=== PATIENT | female | born 1945 | race Caucasian/White ===

== ENCOUNTER 2021-01-27 08:18 | Outpatient (REF) | payer MEDICARE, MEDICAID, SELFPAY ==
--- NOTE | 2021-01-27 09:22 | MHC.AU.HFA ---
Hearing Instrument Fitting- Adult- Binaural Date of Visit: 01/27/21 Hearing Instruments Dispensed: Right Ear: Supervisor Wet Room: Signia Model: Silk 5X Serial Number: [id number] Repair Warranty: 01/10/2024 Loss and Damage Warranty: 01/10/2024 Battery Size: 10 Type of Dome: Small Vented Connexx Click Sleeve Left Ear: Supervisor Wet Room: Signia Model: Silk 5X Serial Number: [id number] Repair Warranty: 01/10/2024 Loss and Damage Warranty: 01/10/2024 Battery Size: 10 Type of Dome: Small Vented Connexx Click Sleeve Summary of Fitting: Hearing instruments appear to fit well with the small vented Connexx Click Sleeves. Critical gain (feedback restaurant manager) run. Verifit not perfomed, as patient does not tolerate the measurements. In-Situ audiogram was performed. Patient was pleased with the sound of the instruments. She initially heard a slight echo when I spoke. Gain for speech sound was lowered by 1 step, and patient felt the echo had subsided. Hearing aid care and use were discussed and practiced. Patient inquired if we could watermelon harvesting supervisor an Otoclip as we had done with her previous RICs. Discussed that this model does not have anywhere for an Otoclip to attach to or loop around. The previous RICs were falling out because the supervisor steel division wire was frequently getting caught in the patient's hair. With this model, there will be significantly less interference from her hair or the face mask, as the hearing aid sits entirely inside the ear canal. Patient was able to put the hearing aid in and change the batteries independently. Recommendations: Patient would like to call if follow-up is needed rather than schedule a follow-up today. Diagnosis Code(s): Primary Diagnosis: H90.3 Bilateral Sensorineural Hearing Loss Signature: Provider: Chele Vieira, CCC-A
== END 2021-01-27 08:19 | disposition home or self-care (01) ==
LOC: HO.HAP 08:18
PROVIDERS: Visit Provider Internal Medicine
DX: Z46.1 Encounter for fitting and adjustment of hearing aid (principal); H90.3 Sensorineural hearing loss, bilateral
CPT/HCPCS: V5011; V5160; V5260; V5266

== ENCOUNTER 2021-09-02 08:57 | Outpatient (REF) | payer MEDICARE, MEDICAID, SELFPAY ==
[2021-09-02 11:12] LABS: MANUAL DIFF FLAG NO
[2021-09-02 11:22] LABS: Appearance Urine CLOUDY; Color Urine YELLOW; Glucose Urine UA NEG (NEG); Leukocyte Esterase Urine NEG (NEG); Nitrite Urine NEG (NEG); PH 5.5 (5.0-8.0); Specific Gravity - Urine 1.025 (1.005-1.025); Urine Blood 1+ (NEG); Urine Ketones NEG (NEG); Urine Protein NEG (NEG-TRACE)
[2021-09-02 11:28] LABS: Basophils Absolute Auto 0.1 X10*3/uL (0.0-0.2); Basophils Percent Auto 0.9 % (0-2); Eosinophils Absolute Auto 0.2 X10*3/uL (0.0-0.4); Eosinophils Percent Auto 2.8 % (0-4); Hematocrit 41.1 % (37.0-47.0); Hemoglobin 13.1 g/dl (12.0-16.0); Imm Gran Abs Auto 0.02 X10*3/uL (0.00-0.03); Imm Gran Pct Auto 0.3 % (0.0-0.4); Lymphocytes Absolute Auto 1.8 X10*3/uL (1.2-4.9); Lymphocytes Percent Auto 28.6 % (20-40); Mean Corpuscular HGB Conc 31.9 g/dl (31.0-35.0); Mean Corpuscular Hemoglobin 27.4 pg (27.0-33.0); Monocytes Absolute Auto 0.4 X10*3/uL (0.1-1.2); Monocytes Percent Auto 6.5 % (2-11); Neutrophils Absolute Auto 3.8 x10*3/uL (2.0-8.3); Neutrophils Percent Auto 60.9 % (45-73); Platelet Count 256 X10*3/uL (160-400); Red Blood Count 4.78 X10*6/uL (4.20-5.50); Red Cell Distribution Width 14.3 % (11.0-16.0); White Blood Count 6.3 X10*3/uL (4.8-10.8)
[2021-09-02 11:35] LABS: Alanine Aminotransferase 26 U/L (0-31); Albumin Level 4.2 g/dL (3.5-5.0); Alkaline Phosphatase 144 U/L (39-117); Anion Gap 14 (12-20); Aspartate Amino Transferase 25 U/L (5-31); Bilirubin Total 0.5 mg/dL (0.0-1.0); Blood Urea Nitrogen 30 mg/dL (9-16); Calcium 9.9 mg/dL (8.4-10.2); Carbon Dioxide 27 mmol/L (22-29); Chloride 105 mmol/L (96-108); Cholesterol 178 mg/dL; Estimated Glomerular Filt Rate > 60; Glucose Fasting 88 mg/dL (60-99); HDL Cholesterol 68 mg/dL; LDL Cholesterol Calculated 100 mg/dl; Potassium 4.6 mmol/L (3.3-5.1); Sodium 141 mmol/L (135-145); Triglycerides 50 mg/dL
[2021-09-02 11:38] LABS: Amorphous Sediment Urine 4+ /LPF; Squamous Epithelial Cell Urine 1+ /LPF; WBC Urine 0 /HPF (0-4)
[2021-09-02 11:59] LABS: Thyroid Stimulating Hormone 1.73 uIU/mL (0.32-4.0)
== END 2021-09-02 08:58 | disposition home or self-care (01) ==
LOC: HO.HMGCLDS 08:57
PROVIDERS: Visit Provider Internal Medicine
DX: Z00.00 Encounter for general adult medical examination without abnormal findings (principal); E78.5 Hyperlipidemia, unspecified
CPT/HCPCS: 36415; 80053; 80061; 81001; 84443; 85025

== ENCOUNTER 2021-09-04 08:16 | Outpatient (REF) | payer MEDICARE, MEDICAID, SELFPAY ==
[2021-09-04 11:19] LABS: Appearance Urine CLEAR; Color Urine YELLOW; Glucose Urine UA NEG (NEG); Leukocyte Esterase Urine NEG (NEG); Nitrite Urine NEG (NEG); Specific Gravity - Urine 1.015 (1.005-1.025); Urine Blood NEG (NEG); Urine Ketones NEG (NEG); Urine Protein NEG (NEG-TRACE)
== END 2021-09-04 08:17 | disposition home or self-care (01) ==
LOC: HO.HMGCLDS 08:16
PROVIDERS: PCP Internal Medicine; Visit Provider Internal Medicine
DX: N39.0 Urinary tract infection, site not specified (principal)
CPT/HCPCS: 81003

== ENCOUNTER 2021-11-04 12:29 | Outpatient (REF) | payer MEDICARE, MEDICAID, SELFPAY | END 2021-11-04 12:30 | disposition home or self-care (01) | LOC: HO.HMGCLDS 12:29 | PROVIDERS: PCP Internal Medicine; Visit Provider Internal Medicine | DX: Z13.89 Encounter for screening for other disorder (principal) ==

== ENCOUNTER 2021-11-16 10:04 | Outpatient (REF) | payer MEDICARE, MEDICAID, SELFPAY ==
--- NOTE | 2021-11-16 14:02 | MHC.AU.HFU ---
Hearing Instrument Follow-Up- Binaural Date of Visit: 11/16/21 Right Ear: Microfilmer: Signia Model: Silk 5X Serial Number: [id number] Repair Warranty: 01/10/2024 Loss and Damage Warranty: 01/10/2024 Battery Size: 10 Type of Dome: Small Vented Connexx Click Sleeve Dispensed By: [facility] Date of Fittin01/27/2021 Left Ear: Microfilmer: Signia Model: Silk 5X Serial Number: [id number] Repair Warranty: 01/10/2024 Loss and Damage Warranty: 01/10/2024 Battery Size: 10 Type of Dome: Small Vented Connexx Click Sleeve Dispensed By: [facility] Date of Fittin01/27/2021 Follow-Up Summary: Hearing Aid Problem - Patient brings in the left aid with the battery door broken off and battery stuck in aid. Sending out for repair under warranty Patient also reports she has not been hearing well with the aids since fit. She is not able to understand speech clearly and asking for frequent repetition. Recommendations: When repair received, schedule 1/2 hour appointment with Babak Howard for further adjustments of the aids. Diagnosis Code(s): Primary Diagnosis: H90.3 Bilateral Sensorineural Hearing Loss Signature:Provider: Elvis Qureshi, CCC-A
== END 2021-11-16 10:05 | disposition home or self-care (01) ==
LOC: HO.HAP 10:04
PROVIDERS: Visit Provider Internal Medicine
DX: Z46.1 Encounter for fitting and adjustment of hearing aid (principal); H90.3 Sensorineural hearing loss, bilateral
CPT/HCPCS: V5266

== ENCOUNTER 2021-12-15 10:21 | Outpatient (REF) | payer MEDICARE, MEDICAID, SELFPAY | END 2021-12-15 10:22 | disposition home or self-care (01) | LOC: HO.HAP 10:21 | PROVIDERS: Visit Provider Internal Medicine | DX: Z13.89 Encounter for screening for other disorder (principal) ==

== ENCOUNTER → 2022-01-10 13:59 | Outpatient (BNVA) | payer MEDICARE, MEDICAID, SELFPAY | PROVIDERS: PCP Internal Medicine; Visit Provider Urology | DX: N32.81 Overactive bladder (principal); R35.0 Frequency of micturition; Q63.1 Lobulated, fused and horseshoe kidney | CPT/HCPCS: 51798; 99212; Q3014 ==

== ENCOUNTER 2022-01-20 14:39 | Outpatient (REF) | payer MEDICARE, MEDICAID, SELFPAY ==
--- NOTE | 2022-01-21 08:16 | MHC.AU.HFU ---
Hearing Instrument Follow-Up- Binaural Date of Visit: 01/20/22 Right Ear: C++ Quant Developer: Sign[employer] 5X #[id number] Repair Warranty: 01/10/2024 Loss and Damage Warranty: 01/10/2024 Battery Size: 10 Type of Dome: X-Small Vented Connexx Click Sleeve Dispensed By: [facility] Date of Fittin01/27/2021 Left Ear: C++ Quant Developer: Crowd[employer] 5X #[id number] Repair Warranty: 01/10/2024 Loss and Damage Warranty: 01/10/2024 Battery Size: 10 Type of Dome: X-Small Vented Connexx Click Sleeve Dispensed By: [facility] Date of Fittin01/27/2021 Follow-Up Summary: Patient reports that the battery is stuck inside the right hearing aid. She suspects she accidentally put the battery in backwards. The battery was able to be extracted with tweezers. A piece of the battery door is broken; therefore, the battery stays inside the hearing aid every time the battery door is opened. The hearing aid is still turning on and amplifying. Patient will be leaving for vacation shortly, and did not want to be without the hearing aid on vacation. Discussed that, temporarily, she could use tweezers to remove the battery as needed, but strongly recommended that she drop the hearing aid off for repair when she returns from vacation. Patient also requested a smaller sleeve. Switched both instruments to X-Small. Patient was pleased with the fit of the instruments. She also felt that she still has significant difficulty hearing in groups or in noise. In the software, increased speech and noise management to maximum. At patient request, lowered overall gain by 2 steps, as she felt it was too harsh. Recommendations: Hearing instrument follow-up or maintenance as needed. Patient will drop the right hearing aid off for repair when she returns from vacation. Diagnosis Code(s): Primary Diagnosis: H90.3 Bilateral Sensorineural Hearing Loss Signature: Provider: Franc Vieira, [facility]
== END 2022-01-20 14:40 | disposition home or self-care (01) ==
LOC: HO.HAP 14:39
PROVIDERS: Visit Provider Internal Medicine
DX: Z13.89 Encounter for screening for other disorder (principal)
CPT/HCPCS: 92621

== ENCOUNTER 2022-02-16 14:23 | Outpatient (REF) | payer MEDICARE, MEDICAID, SELFPAY ==
--- NOTE | 2022-02-17 07:56 | MHC.AU.HFU ---
Hearing Instrument Follow-Up- Binaural Date of Visit: 02/16/22 Right Ear: Abhishek Garrett 5X #[id number] Repair Warranty: 01/10/2024 Loss and Damage Warranty: 01/10/2024 Battery Size: 10 Type of Dome: X-Small Connexx Click Sleeve Type of Wax Guard: Signia Dispensed By: [facility] Date of Fittin01/27/2021 Left Ear: Abhishek Garrett 5X #[id number] Repair Warranty: 01/10/2024 Loss and Damage Warranty: 01/10/2024 Battery Size: 10 Type of Dome: X-small Vented Connexx Click Sleeve Type of Wax Guard: Signia Dispensed By: [facility] Date of Fittin01/27/2021 Follow-Up Summary: Patient was previously seen on 01/20/2022 to address her right hearing aid. The battery door was broken, causing the battery to stay inside the hearing aid when the door was opened. The battery could be taken out with tweezers. The hearing aid was still working and she was due to go on a trip; therefore, she did not want to send it out for repair until she got back. Today, she dropped the right side off to send out. It was sent to [facility] for repair under warranty. Recommendations: Patient will be contacted when materials have arrived. Diagnosis Code(s): Primary Diagnosis: H90.3 Bilateral Sensorineural Hearing Loss Signature: Provider: Franc Vieira, [facility]
== END 2022-02-16 14:24 | disposition home or self-care (01) ==
LOC: HO.HAP 14:23
PROVIDERS: Visit Provider Internal Medicine
DX: Z13.89 Encounter for screening for other disorder (principal)

== ENCOUNTER 2022-03-10 14:19 | Outpatient (REF) | payer MEDICARE, MEDICAID, SELFPAY | END 2022-03-10 14:20 | disposition home or self-care (01) | LOC: HO.HAP 14:19 | PROVIDERS: Visit Provider Internal Medicine | DX: Z13.89 Encounter for screening for other disorder (principal) ==

== ENCOUNTER 2022-03-21 11:57 | Outpatient (REF) | payer MEDICARE, MEDICAID, SELFPAY | END 2022-03-21 11:58 | disposition home or self-care (01) | LOC: HO.HAP 11:57 | PROVIDERS: Visit Provider Internal Medicine | DX: Z13.89 Encounter for screening for other disorder (principal) ==

== ENCOUNTER 2022-03-31 13:56 | Outpatient (REF) | payer MEDICARE, MEDICAID, SELFPAY | END 2022-03-31 13:57 | disposition home or self-care (01) | LOC: HO.HAP 13:56 | PROVIDERS: Visit Provider Internal Medicine | DX: Z13.89 Encounter for screening for other disorder (principal) ==

== ENCOUNTER → 2022-06-10 13:54 | Outpatient (BNVA) | payer MEDICARE, MEDICAID, SELFPAY | PROVIDERS: PCP Internal Medicine; Visit Provider Urology | DX: N32.81 Overactive bladder (principal) | CPT/HCPCS: Q3014 ==

== ENCOUNTER 2022-06-28 16:09 | Outpatient (REF) | payer MEDICAID, SELFPAY | END 2022-06-28 16:10 | disposition home or self-care (01) | LOC: HO.HAP 16:09 | PROVIDERS: Visit Provider Internal Medicine | DX: Z46.1 Encounter for fitting and adjustment of hearing aid (principal); H90.3 Sensorineural hearing loss, bilateral | CPT/HCPCS: V5266 ==

== ENCOUNTER 2022-06-29 15:47 | Outpatient (REF) | payer SELFPAY | END 2022-06-29 15:48 | disposition home or self-care (01) | LOC: HO.HAP 15:47 | PROVIDERS: Visit Provider Internal Medicine | DX: Z46.1 Encounter for fitting and adjustment of hearing aid (principal); H90.3 Sensorineural hearing loss, bilateral | CPT/HCPCS: V5267 ==

== ENCOUNTER 2022-07-06 16:34 | Outpatient (REF) | payer SELFPAY ==
--- NOTE | 2022-07-07 11:55 | MHC.AU.HA3 ---
Hearing Instrument Follow-Up- Binaural Date of Visit: 07/06/22 Right Ear: Tyrese, Model, Color, Serial Number: Abhishek Garrett 5X #[id number] Nuclear Fuel Enrichment Technician Repair Warranty: 01/10/2024 Nuclear Fuel Enrichment Technician Loss and Damage Warranty: 01/10/2024 Battery Size: 10 Earmold/Dome/CShell/SlimTip:Signia Closed XS Connexx Click Sleeve (Part #: [id number]) Dispensed By: [facility] Date of Fittin01/27/2021 Left Ear: Tyrese, Model, Color, Serial Number: Abhishek Garrett 5X #[id number] Nuclear Fuel Enrichment Technician Repair Warranty: 01/10/2024 Nuclear Fuel Enrichment Technician Loss and Damage Warranty: 01/10/2024 Battery Size: 10 Earmold/Dome/CShell/SlimTip: Signia Closed XS Connexx Click Sleeve (Part #: [id number]) Dispensed By: [facility] Date of Fittin01/27/2021 Follow-Up Summary: Zuleima dropped off right hearing aid reporting it was broken. Upon inspection, the dome would not stay connected. After some troubleshooting, realized it was the wrong dome. Replaced with the proper dome and confirmed secure fit. Dome clicks onto end of hearing aid. Connexx Click Sleeve domes have small white ring inside to click onto hearing aid. Provided two additional domes for Zuleima to change her left one as well. Recommendations: Hearing instrument maintenance in 6 months, or sooner if needed. Please contact our clinic with any questions or concerns. Diagnosis Code(s): Primary Diagnosis: H90.3 Bilateral Sensorineural Hearing Loss Signature: Provider: Franc Berkowitz, [facility]
== END 2022-07-06 16:35 | disposition home or self-care (01) ==
LOC: HO.HAP 16:34
PROVIDERS: Visit Provider Internal Medicine
DX: Z13.89 Encounter for screening for other disorder (principal)

== ENCOUNTER 2022-07-11 15:41 | Outpatient (REF) | payer SELFPAY | END 2022-07-11 15:42 | disposition home or self-care (01) | LOC: HO.HAP 15:41 | PROVIDERS: Visit Provider Internal Medicine | DX: Z13.89 Encounter for screening for other disorder (principal) ==

== ENCOUNTER → 2022-09-26 13:35 | Outpatient (BNVA) | payer MEDICARE, MEDICAID, SELFPAY | PROVIDERS: PCP Internal Medicine; Visit Provider Dietitian, Registered | DX: R63.8 Other symptoms and signs concerning food and fluid intake (principal) | CPT/HCPCS: 97802 ==

== ENCOUNTER 2023-01-31 14:10 | Outpatient (AMB) | payer MEDICARE, MEDICAID, SELFPAY ==
[2023-01-31 14:20] VITALS: BP 164/76; PULSE 84; O2SAT 98; BMI 18.9
--- NOTE | 2023-01-31 14:20 | MHC.PC.OV ---
Vital Signs 01/31/23 14:20 Height 5 ft Weight 97 lb BMI 18.9 BP 164/76 H Blood Pressure Location Lt brachial Position Sitting Pulse 84 Pulse Source Pulse Oximeter Pulse Oximetry (%) 98 Oxygen Delivery Method Room Air Intake Visit Reasons: 1mth f/u Allergies bacitracin [BACITRACIN] Allergy (Unknown, Verified 01/31/23 14:20) UNKNOWN latex [LATEX] Allergy (Unknown, Verified 01/31/23 14:20) ITCHING penicillin V Allergy (Unknown, Verified 01/31/23 14:20) Unknown Penicillins [PENICILLINS] Allergy (Unknown, Verified 01/31/23 14:20) UNKNOWN Dye GROUP HOME Red 2 (Amaranth) Allergy (Unknown, Uncoded 01/31/23 14:20) Unknown Dye GROUP HOME Red 3 (Erythrosine) Allergy (Unknown, Uncoded 01/31/23 14:20) Unknown Dye GROUP HOME Red 40 (Allura Red) Allergy (Unknown, Uncoded 01/31/23 14:20) Unknown Dye GROUP HOME Red 40 ([place] Red) Allergy (Unknown, Uncoded 01/31/23 14:20) Unknown Latex Allergy (Unknown, Uncoded 01/31/23 14:20) Unknown Latex Gloves Allergy (Unknown, Uncoded 01/31/23 14:20) itching Tobacco use date assessed: 05/12/22 Fall risk assessment: No Falls in past year Last assessed Fall Risk: 01/31/23 Dental Screening Dental Screen Date: 01/31/23 Did you have a dental visit in the last 12 months?: No Did you have a dental problem in the last 6 months where you did not have access to dental care?: Yes Was dental information given to patient?: Patient has dentist HPI 1mth f/u HPI Details pruritic rash under left arm for a week PFS Medical History Cellulitis Surgical History No pertinent past surgical history Family History Mother No problems noted. Father No problems noted. Social History Housing: Apartment Alcohol intake: never Patient Tobacco Use Status: Never used Tobacco e-Cigarette/Vaping Use: Never Used Second Hand Smoke Exposure: No service: No Current occupational status: retired Cognitive needs: No Hearing needs: No Vision needs: Yes (glasses) Questionnaire PHQ-9 Over the last 2 weeks, how often have you been bothered by any of the following problems? 1. Little interest or pleasure in doing things: not at all 2. Feeling down, depressed, or hopeless: not at all 3. Trouble falling or staying asleep, or sleeping too much: not at all 4. Feeling tired or having little energy: not at all 5. Poor appetite or overeating: not at all 6. Feeling bad about yourself - or that you are a failure or have let yourself or your family down: not at all 7. Trouble concentrating on things, such as reading the newspaper or watching television: not at all 8. Moving or speaking so slowly that other people could have noticed. Or the opposite - being so fidgety or restless that you have been moving around a lot more than usual: not at all 9. Thoughts that you would be better off or of hurting yourself in some way: not at all Total score: 0 Depression Screening Interpretation: Negative Depression Screening Done: Yes 55052 - PHQ-9 Billing: Yes Source: Developed by Drs. Mark Haney, Errol Lockwood and colleagues, with an educational laura from [employer]. Thrive Questionnaire Date Thrive assessed: 05/12/22 AUDIT C Alcohol Use Questionnaire (AUDIT-C) 1. How often do you have a drink containing alcohol?: Never 3. How often do you have six or more drinks on one occasion?: Never Total Score: 0 Score Reviewed/Action Taken: Yes DANA-7 AMB Questionnaire DANA-7 Date DANA - 7 assessed: 05/12/22 Source: Developed by Drs. Mark Haney, Errol Lockwood and colleagues, with an educational laura from [employer]. Review of Systems Const Denies chills, Denies headache(s) and Denies weight loss ENT Denies headache(s) Card Denies chest pain, Denies syncope, Denies irregular heart rhythm and Denies dyspnea Resp Denies chest congestion, Denies cough and Denies dyspnea GI Denies abdominal pain, Denies change in stool character, Denies nausea and Denies vomiting Musc Denies deformity and Denies joint swelling Neuro Denies syncope and Denies headache(s) Physical exam (Primary Care) Vital Signs: Last Vital Signs Pulse 84 01/31/23 14:20 BP 164/76 H 01/31/23 14:20 Pulse Ox 98 01/31/23 14:20 Oxygen Delivery Method Room Air 01/31/23 14:20 BMI result Body Mass Index 18.9 Tobacco/Smoking Status: Tobacco use Status Tobacco use date assessed 05/12/22 01/31/23 14:21 Patient Tobacco Use Status Never used Tobacco 01/31/23 14:21 e-Cigarette/Vaping Use Never Used 01/31/23 14:21 PHQ-9: PHQ-9 Score PHQ-9: Total score 0 01/31/23 14:27 Depression Screening Interpretation: Negative Thrive Assessment: Date of Thrive Assessment Date Thrive assessed 05/12/22 01/31/23 14:21 Const General: cooperative, comfortable and no acute distress HENMT Head: Yes normal to inspection Eyes General: appearance normal, both eyes and all related structures Neck Neck: Yes normal visual inspection Skin Other: excoriated rash left axilla Assessment and Plan Assessment & Plan (1) Rash: Code(s): R21 - Rash and other nonspecific skin eruption Plan: take rx Medications: New azithromycin take 500 mg today (day 1), then 250 mg for 4 days (days 2-5) PO 6 tabs 0RF Coding Level of Care Code Est Pt Level 3 (97094) Diagnoses Rash R21
== END 2023-01-31 14:43 | disposition home or self-care (01) ==
PROVIDERS: PCP Internal Medicine; Visit Provider Internal Medicine
DX: R21 Rash and other nonspecific skin eruption (principal)
CPT/HCPCS: 99213

== ENCOUNTER 2023-02-06 13:13 | Outpatient (AMB) | payer MEDICARE, MEDICAID, SELFPAY ==
--- NOTE | 2023-02-06 13:13 | A.OFFVIS_ITS ---
Intake Intake Visit Reasons: Urinary incontinence Intake Note: Patient is present for Telephone Follow Up Urology Med: none Blood thinners; none Taxi Servicer Required: No Accompanied by: Self / Same As Patient Allergies bacitracin [BACITRACIN] Allergy (Unknown, Verified 02/06/23 13:50) UNKNOWN latex [LATEX] Allergy (Unknown, Verified 02/06/23 13:50) ITCHING penicillin V Allergy (Unknown, Verified 02/06/23 13:50) Unknown Penicillins [PENICILLINS] Allergy (Unknown, Verified 02/06/23 13:50) UNKNOWN Dye PRISON Red 2 (Amaranth) Allergy (Unknown, Uncoded 02/06/23 13:50) Unknown Dye PRISON Red 3 (Erythrosine) Allergy (Unknown, Uncoded 02/06/23 13:50) Unknown Dye PRISON Red 40 (Allura Red) Allergy (Unknown, Uncoded 02/06/23 13:50) Unknown Dye PRISON Red 40 ([place] Red) Allergy (Unknown, Uncoded 02/06/23 13:50) Unknown Latex Allergy (Unknown, Uncoded 02/06/23 13:50) Unknown Latex Gloves Allergy (Unknown, Uncoded 02/06/23 13:50) itching Medication List - Last Reconciled 02/06/23 by FELIPA [place] azithromycin take 500 mg today (day 1), then 250 mg for 4 days (days 2-5) PO HPI HPI Comments History of Present Illness Details Zuleima is a very pleasant 77-year-old female patient of Dr. Berkowtiz. She has a PMH of cellulits, hearing loss, and weight disorder. She is being follow- up on today via telehealth for her ongoing lower urinary tract symptoms. In discussion with the patient today she reports to be doing and feeling well. She reports noting urinary frequency. She reports having followed up with Dr. Chen and Dr. Brandt in the past however continues with urinary frequency. 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 Discussed obtaining retroperitoneal ultrasound for further assessment evaluation. When asked patient denies hematuria, dysuria, foul-smelling urine, changes to urinary stream, flank pain, fever, and or chills. She endorses to urinary urgency, urinary frequency, nocturia, and episodes of incontinence if not near a bathroom. Discussed at length potential causes for lower urinary tract symptoms patient is experiencing. Discussed obtaining retroperitoneal ultrasound for further assessment evaluation and in office follow-up for further assessment evaluation of urinalysis and postvoid residual. Discussed, educated, and stressed the importance of drinking plenty of water daily. She otherwise denies any other issues or concerns at this time. [facility] Medical History Cellulitis Surgical History No pertinent past surgical history Family History Mother No problems noted. Father No problems noted. Social History Housing: Apartment Alcohol intake: never Patient Tobacco Use Status: Never used Tobacco e-Cigarette/Vaping Use: Never Used Second Hand Smoke Exposure: No service: No Current occupational status: retired Cognitive needs: No Hearing needs: No Vision needs: Yes (glasses) Review of Systems Const Reports as per HPI Eyes Reports no additional complaints ENT Reports as per HPI Card Reports no additional complaints Resp Reports no additional complaints GI Reports as per HPI Reports as per HPI Musc Reports no additional complaints Skin/Breast Reports as per HPI Neuro Reports no additional complaints Psych Reports as per HPI Endo Reports no additional complaints Physical Exam Const General: cooperative Resp Effort & Inspection: able to speak in complete sentences Psych Speech and movement: Clear speech present Attitude: cooperative Thought process: Normal thought process present Insight: Fair insight present (Psych) Judgement: Fair judgement present (Psych) Assessment & Plan Assessment & Plan (1) Urinary frequency: Code(s): R35.0 - Frequency of micturition Plan Discussed at length potential causes for lower urinary tract symptoms patient is experiencing. Discussed obtaining retroperitoneal ultrasound for further assessment evaluation. Discussed follow-up to be in office for further assessment of urinalysis as well as postvoid residual. Discussed at length bladder triggers/irritants. Discussed, educated, encouraged on the importance of drinking plenty of water daily. Follow-up in office in 3 months with imaging to be completed prior; or sooner with any issues, concerns, and or questions. Orders: Orders US retroperitoneal comp Today R35.0 - Frequency of micturition Patient Instructions: The patient had an opportunity to ask questions regarding the treatment plan. All questions were answered. Physical exam, labs, and imaging were discussed and reviewed in detail. As well as risks, benefits, and discussion of treatment choices. No major barriers to understanding were identified. The patient expressed understanding and agreement with the above treatment plan. The patient was made aware they should contact our office by phone for worsening of their current condition, the appearance of new symptoms, or with any questions or concerns. Compliance is encouraged with any medications and follow up testing that is ordered. It is a privilege to be allowed the opportunity to participate in? your urological care.? Again, if you have any questions or concerns If you have any questions or concerns please do not hesitate to contact me. The office is [phone]. This note is constructed using voice recognition software. While every effort has been made to ensure accuracy director of sales marketing errors may have been included. Yours sincerely, [facility] Tele[facility] Telehealth Location of provider rendering services: practice address Location of patient: address on file Patient Identification confirmed using: Name, : Yes Telehealth method: voice only Patient verbally consented to treatment: Yes Patient verbally consented to billing insurance company: Yes Patient informed of any privacy concerns related to visit: Yes Minutes spent on Phone/Video with Pt.: 20 Coding Level of Care Code Tele New Pt Level 2 (23922) Diagnoses Urinary frequency R35.0
== END 2023-02-06 14:02 | disposition home or self-care (01) ==
LOC: HO.HUSH 13:13
PROVIDERS: PCP Internal Medicine; Visit Provider Nurse Practitioner Family
DX: R35.0 Frequency of micturition (principal)
CPT/HCPCS: 99442

== ENCOUNTER → 2023-02-06 13:13 | Outpatient (BNVA) | payer MEDICARE, MEDICAID, SELFPAY | PROVIDERS: PCP Internal Medicine; Visit Provider Nurse Practitioner Family ==

== ENCOUNTER 2023-05-10 08:34 | Outpatient (AMB) | payer MEDICARE, MEDICAID, SELFPAY ==
--- NOTE | 2023-05-10 08:31 | MHC.PC.OV ---
Vital Signs 05/10/23 08:31 Height 5 ft Intake Visit Reasons: discuss referral, Allergies bacitracin [BACITRACIN] Allergy (Unknown, Verified 05/10/23 08:32) UNKNOWN latex [LATEX] Allergy (Unknown, Verified 05/10/23 08:32) ITCHING penicillin V Allergy (Unknown, Verified 05/10/23 08:32) Unknown Penicillins [PENICILLINS] Allergy (Unknown, Verified 05/10/23 08:32) UNKNOWN Dye PRISON Red 2 (Amaranth) Allergy (Unknown, Uncoded 05/10/23 08:32) Unknown Dye PRISON Red 3 (Erythrosine) Allergy (Unknown, Uncoded 05/10/23 08:32) Unknown Dye PRISON Red 40 (Allura Red) Allergy (Unknown, Uncoded 05/10/23 08:32) Unknown Dye PRISON Red 40 ([place] Red) Allergy (Unknown, Uncoded 05/10/23 08:32) Unknown Latex Allergy (Unknown, Uncoded 05/10/23 08:32) Unknown Latex Gloves Allergy (Unknown, Uncoded 05/10/23 08:32) itching Tobacco use date assessed: 05/08/23 HPI discuss referral, HPI Details wants PT referral for leg weakness; homeless and living in her car [facility] Medical History Cellulitis Surgical History No pertinent past surgical history Family History Mother No problems noted. Father No problems noted. Social History Housing: Apartment Alcohol intake: never Patient Tobacco Use Status: Never used Tobacco e-Cigarette/Vaping Use: Never Used Second Hand Smoke Exposure: No service: No Current occupational status: retired Cognitive needs: No Hearing needs: No Vision needs: Yes (glasses) Questionnaire Thrive Questionnaire Date Thrive assessed: 05/08/23 DANA-7 AMB Questionnaire DANA-7 Date DANA - 7 assessed: 05/08/23 Source: Developed by Drs. Mark L. MedinaYasmine proctor, Errol Horne and colleagues, with an educational laura from [employer]. Review of Systems Const Denies chills, Denies headache(s) and Denies weight loss ENT Denies headache(s) Card Denies chest pain, Denies syncope, Denies irregular heart rhythm and Denies dyspnea Resp Denies chest congestion, Denies cough and Denies dyspnea GI Denies abdominal pain, Denies change in stool character, Denies nausea and Denies vomiting Musc Denies deformity and Denies joint swelling Neuro Denies syncope and Denies headache(s) Physical exam (Primary Care) Tobacco/Smoking Status: Tobacco use Status Tobacco use date assessed 05/08/23 05/10/23 08:33 Patient Tobacco Use Status Never used Tobacco 05/10/23 08:33 e-Cigarette/Vaping Use Never Used 05/10/23 08:33 Thrive Assessment: Date of Thrive Assessment Date Thrive assessed 05/08/23 05/10/23 08:33 Telehealth Telehealth Location of provider rendering services: practice address Location of patient: address on file Patient Identification confirmed using: Name, : Yes Telehealth method: voice only Patient verbally consented to treatment: Yes Patient verbally consented to billing insurance company: Yes Patient informed of any privacy concerns related to visit: Yes Minutes spent on Phone/Video with Pt.: 15 (telephone) Assessment and Plan Assessment & Plan (1) Leg weakness: Code(s): R29.898 - Other symptoms and signs involving the musculoskeletal system Plan: [facility] PT referral Coding Level of Care Code Tele Est Pt Level 3 (64296) Diagnoses Leg weakness R29.898
== END 2023-05-10 17:19 | disposition home or self-care (01) ==
LOC: HO.HMGH 08:34
PROVIDERS: PCP Internal Medicine; Visit Provider Internal Medicine
DX: R29.898 Other symptoms and signs involving the musculoskeletal system (principal)
CPT/HCPCS: 99442

== ENCOUNTER 2023-05-30 11:30 | Outpatient (AMB) | payer OTHER, MEDICARE, MEDICAID, SELFPAY ==
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
== END 2023-05-30 12:36 | disposition home or self-care (01) ==
LOC: HO.HMGH 11:30
PROVIDERS: PCP Internal Medicine; Visit Provider Internal Medicine
DX: S19.9XXA Unspecified injury of neck, initial encounter (principal); V89.2XXA Person injured in unspecified motor-vehicle accident, traffic, initial encounter; Z04.3 Encounter for examination and observation following other accident
CPT/HCPCS: 99213

== ENCOUNTER 2023-07-24 11:41 | Outpatient (AMB) | payer OTHER, MEDICARE, MEDICAID, SELFPAY ==
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
== END 2023-07-24 13:40 | disposition home or self-care (01) ==
PROVIDERS: PCP Internal Medicine; Visit Provider Internal Medicine
DX: M54.2 Cervicalgia (principal)
CPT/HCPCS: 99442

== ENCOUNTER 2023-09-01 09:59 | Outpatient (AMB) | payer MEDICARE, MEDICAID, SELFPAY ==
--- NOTE | 2023-09-01 09:56 | MHC.PC.OV ---
Intake Visit Reasons: discuss new doctor/ still homeless Allergies bacitracin [BACITRACIN] Allergy (Unknown, Verified 07/24/23 11:42) UNKNOWN latex [LATEX] Allergy (Unknown, Verified 07/24/23 11:42) ITCHING penicillin V Allergy (Unknown, Verified 07/24/23 11:42) Unknown Penicillins [PENICILLINS] Allergy (Unknown, Verified 07/24/23 11:42) UNKNOWN Dye [facility] Red 2 (Amaranth) Allergy (Unknown, Uncoded 07/24/23 11:42) Unknown Dye [facility] Red 3 (Erythrosine) Allergy (Unknown, Uncoded 07/24/23 11:42) Unknown Dye [facility] Red 40 (Allura Red) Allergy (Unknown, Uncoded 07/24/23 11:42) Unknown Dye [facility] Red 40 ([place] Red) Allergy (Unknown, Uncoded 07/24/23 11:42) Unknown Latex Allergy (Unknown, Uncoded 07/24/23 11:42) Unknown Latex Gloves Allergy (Unknown, Uncoded 07/24/23 11:42) itching Tobacco use date assessed: 07/24/23 Fall risk assessment: No Falls in past year Last assessed Fall Risk: 09/01/23 Dental Screening Dental Screen Date: 06/13/23 HPI discuss new doctor/ still homeless HPI Details remains homeless; will attempt to connect with nurse navigator [facility] Medical History Cellulitis Surgical History No pertinent past surgical history Family History Mother No problems noted. Father No problems noted. Social History Housing: Homeless Alcohol intake: never Patient Tobacco Use Status: Never used Tobacco e-Cigarette/Vaping Use: Never Used Second Hand Smoke Exposure: No service: No Current occupational status: retired Cognitive needs: No Hearing needs: No Vision needs: Yes (glasses) Questionnaire Thrive Questionnaire Date Thrive assessed: 05/08/23 DANA-7 AMB Questionnaire DANA-7 Date DANA - 7 assessed: 05/08/23 Source: Developed by Drs. Mark Haney, Yasmine Thompson, Errol Horne and colleagues, with an educational laura from [employer]. Review of Systems Const Denies chills, Denies headache(s) and Denies weight loss ENT Denies headache(s) Card Denies chest pain, Denies syncope, Denies irregular heart rhythm and Denies dyspnea Resp Denies chest congestion, Denies cough and Denies dyspnea GI Denies abdominal pain, Denies change in stool character, Denies nausea and Denies vomiting Musc Denies deformity and Denies joint swelling Neuro Denies syncope and Denies headache(s) Physical exam (Primary Care) Tobacco/Smoking Status: Tobacco use Status Tobacco use date assessed 07/24/23 09/01/23 09:58 Patient Tobacco Use Status Never used Tobacco 09/01/23 09:58 e-Cigarette/Vaping Use Never Used 09/01/23 09:58 Thrive Assessment: Date of Thrive Assessment Date Thrive assessed 05/08/23 09/01/23 09:58 Telehealth Telehealth Telehealth Platform: Telephone Location of provider rendering services: practice address Location of patient: address on file Patient Identification confirmed using: Name, : Yes Telehealth method: voice only Patient verbally consented to treatment: Yes Patient verbally consented to billing insurance company: Yes Patient informed of any privacy concerns related to visit: Yes Minutes spent on Phone/Video with Pt.: 15 (telephone) Assessment and Plan Assessment & Plan (1) Homeless: Code(s): Z59.00 - Homelessness unspecified Plan: refer Orders: Referrals Nurse Navigator Referral Z59.00 - Homelessness unspecified Coding Level of Care Code Tele Est Pt Level 3 (26281) Diagnoses Homeless Z59.00
== END 2023-09-01 15:03 | disposition home or self-care (01) ==
LOC: HO.HMGH 09:59
PROVIDERS: PCP Internal Medicine; Visit Provider Internal Medicine
DX: Z59.00 Homelessness unspecified (principal)
CPT/HCPCS: 99213; 99442

== ENCOUNTER 2023-11-02 10:31 | Outpatient (AMB) | payer MEDICARE, MEDICAID, SELFPAY ==
--- NOTE | 2023-11-02 10:28 | A.OFFPC_ITS ---
Vital Signs 11/02/23 10:30 Height 5 ft Intake Visit Reasons: MRI f/u Allergies bacitracin [BACITRACIN] Allergy (Unknown, Verified 07/24/23 11:42) UNKNOWN latex [LATEX] Allergy (Unknown, Verified 07/24/23 11:42) ITCHING penicillin V Allergy (Unknown, Verified 07/24/23 11:42) Unknown Penicillins [PENICILLINS] Allergy (Unknown, Verified 07/24/23 11:42) UNKNOWN Dye [facility] Red 2 (Amaranth) Allergy (Unknown, Uncoded 07/24/23 11:42) Unknown Dye [facility] Red 3 (Erythrosine) Allergy (Unknown, Uncoded 07/24/23 11:42) Unknown Dye [facility] Red 40 (Allura Red) Allergy (Unknown, Uncoded 07/24/23 11:42) Unknown Dye [facility] Red 40 ([place] Red) Allergy (Unknown, Uncoded 07/24/23 11:42) Unknown Latex Allergy (Unknown, Uncoded 07/24/23 11:42) Unknown Latex Gloves Allergy (Unknown, Uncoded 07/24/23 11:42) itching Medication List - Last Reconciled 11/02/23 by Jp Berkowitz MD No Known Home Meds Tobacco use date assessed: 07/24/23 Fall risk assessment: 1 Fall in past year Last assessed Fall Risk: 11/02/23 Dental Screening Dental Screen Date: 06/13/23 HPI MRI f/u HPI Details lump left breast lateral aspect for a month [facility] Medical History Cellulitis Surgical History No pertinent past surgical history Family History Mother No problems noted. Father No problems noted. Social History Housing: Homeless Alcohol intake: never Patient Tobacco Use Status: Never used Tobacco e-Cigarette/Vaping Use: Never Used Second Hand Smoke Exposure: No service: No Current occupational status: retired Cognitive needs: No Hearing needs: No Vision needs: Yes (glasses) Questionnaire Thrive Questionnaire Date Thrive assessed: 05/08/23 DANA-7 AMB Questionnaire DANA-7 Date DANA - 7 assessed: 05/08/23 Source: Developed by Drs. Mark Haney, Yasmine Thompson, Errol Horne and colleagues, with an educational laura from [employer]. Review of Systems Const Denies chills, Denies headache(s) and Denies weight loss ENT Denies headache(s) Card Denies chest pain, Denies syncope, Denies irregular heart rhythm and Denies dyspnea Resp Denies chest congestion, Denies cough and Denies dyspnea GI Denies abdominal pain, Denies change in stool character, Denies nausea and Denies vomiting Musc Denies deformity and Denies joint swelling Neuro Denies syncope and Denies headache(s) Physical exam (Primary Care) Tobacco/Smoking Status: Tobacco use Status Tobacco use date assessed 07/24/23 11/02/23 10:30 Patient Tobacco Use Status Never used Tobacco 11/02/23 10:30 e-Cigarette/Vaping Use Never Used 11/02/23 10:30 Thrive Assessment: Date of Thrive Assessment Date Thrive assessed 05/08/23 11/02/23 10:30 Telehealth Telehealth Telehealth Platform: Telephone Location of provider rendering services: practice address Location of patient: address on file Patient Identification confirmed using: Name, : Yes Telehealth method: voice only Patient verbally consented to treatment: Yes Patient verbally consented to billing insurance company: Yes Patient informed of any privacy concerns related to visit: Yes Minutes spent on Phone/Video with Pt.: 15 (telephone) Assessment and Plan Assessment & Plan (1) Left breast lump: Code(s): N63.20 - Unspecified lump in the left breast, unspecified quadrant Plan: US ordered Orders: Orders US breast LT complete Today N63.0 - Unspecified lump in unspecified breast Coding Level of Care Code Est Pt Level 3 (77824) Diagnoses Left breast lump N63.20
== END 2023-11-02 15:13 | disposition home or self-care (01) ==
LOC: HO.HMGH 10:31
PROVIDERS: PCP Internal Medicine; Visit Provider Internal Medicine
DX: N63.20 Unspecified lump in the left breast, unspecified quadrant (principal)
CPT/HCPCS: 99213

== ENCOUNTER 2023-11-20 11:25 | Outpatient (REF) | payer MEDICARE, MEDICAID, SELFPAY ==
--- NOTE | ~2023-11-20 | US_ITS ---
EXAMINATION: US DIAGNOSTIC ULTRASOUND BREAST, LEFT CLINICAL INFORMATION: 77-year-old female, no prior mammograms since approximately 1993 (patient refuses mammography), history of implants and subsequent removal, now complaining of left breast lump 3:00 axis times a few months , describes as walnut-sized. COMPARISON: None available. TECHNIQUE: Ultrasound of the left breast is performed with real-time carr scale imaging and color Doppler. Left breast was scanned from the 1:00 to the 5:00 region to include the area of palpable concern. In addition the left axilla was also scanned. FINDINGS: Correlating with the focus of palpable concern, there is a hypoechoic irregular mass with internal color Doppler signal, indistinct margins, probable microcalcifications at the 3:00 axis left breast, 4 cm from the nipple, measuring approximately 3.7 x 2.9 x 1.1 cm. Finding is suspicious and ultrasound-guided biopsy is recommended. In addition, within the left axilla, there is a solitary abnormal lymph node with thickened cortex measuring up to 5 mm, also suspicious. Ultrasound-guided biopsy of this lymph node recommended. No additional abnormal lymph nodes or masses detected. US/US breast LT limited mamm only IMPRESSION: 1. Suspicious irregular hypoechoic vascular mass left breast 3:00 axis measuring 3.7 x 2.9 x 1.1 cm as detailed. Ultrasound-guided biopsy recommended. 2. Abnormal left axillary lymph node with thickened cortex up to 5 mm. Ultrasound-guided biopsy of this also recommended. Findings and impression discussed with the patient in detail, who seemed to understand. ASSESSMENT: BI-RADS 4 - Suspicious finding RECOMMENDATION: Biopsy recommended
== END 2023-11-20 11:26 | disposition home or self-care (01) ==
LOC: HO.MAMMO 11:25
PROVIDERS: PCP Internal Medicine; Visit Provider Internal Medicine
DX: N63.25 Unspecified lump in the left breast, overlapping quadrants (principal)
CPT/HCPCS: 76642

== ENCOUNTER → 2023-11-20 12:00 | Outpatient (BNV) | payer MEDICARE, MEDICAID, SELFPAY | PROVIDERS: PCP Internal Medicine; Visit Provider Radiology Diagnostic Radiology | DX: N63.25 Unspecified lump in the left breast, overlapping quadrants (principal) | CPT/HCPCS: 76642 ==

== ENCOUNTER 2023-12-01 10:33 | Outpatient (AMB) | payer MEDICARE, MEDICAID, SELFPAY ==
[2023-12-01 10:41] VITALS: BP 142/80; PULSE 75; O2SAT 99; BMI 18.2
--- NOTE | 2023-12-01 10:41 | MHC.PC.OV ---
Vital Signs 12/01/23 10:41 Height 5 ft Weight 93 lb BMI 18.2 BP 142/80 H Blood Pressure Location Lt brachial Position Sitting Pulse 75 Pulse Source Pulse Oximeter Pulse Oximetry (%) 99 Oxygen Delivery Method Room Air Intake Visit Reasons: breast pain Electrical Repairer Required: No Accompanied by: Self / Same As Patient Allergies bacitracin [BACITRACIN] Allergy (Unknown, Verified 12/01/23 10:41) UNKNOWN latex [LATEX] Allergy (Unknown, Verified 12/01/23 10:41) ITCHING penicillin V Allergy (Unknown, Verified 12/01/23 10:41) Unknown Penicillins [PENICILLINS] Allergy (Unknown, Verified 12/01/23 10:41) UNKNOWN Dye [facility] Red 2 (Amaranth) Allergy (Unknown, Uncoded 12/01/23 10:41) Unknown Dye [facility]IDENT[facility] Red 3 (Erythrosine) Allergy (Unknown, Uncoded 12/01/23 10:41) Unknown Dye [facility]IDENT[facility] Red 40 ([facility] Red) Allergy (Unknown, Uncoded 12/01/23 10:41) Unknown Dye [facility]IDENT[facility] Red 40 ([place] Red) Allergy (Unknown, Uncoded 12/01/23 10:41) Unknown Latex Allergy (Unknown, Uncoded 12/01/23 10:41) Unknown Latex Gloves Allergy (Unknown, Uncoded 12/01/23 10:41) itching Medication List - Last Reconciled 12/01/23 by Willa Robertson PA-C No Known Home Meds Tobacco use date assessed: 07/24/23 Fall risk assessment: 2 + Falls in past year Last assessed Fall Risk: 12/01/23 Dental Screening Dental Screen Date: 06/13/23 HPI breast pain HPI Details 77-year-old female with past medical history overactive bladder and breast mass last seen by Dr. Berkowitz coming in for follow up on breast mass. Discussed this case with general surgery who mentions they had scheduled her but she was not seen. Her last breast ultrasound recommended a biopsy of the breast mass as it appeared suspicious. Today she tells us she is not interested in a biopsy she is struggling with things like homelessness and transportation issues. She is currently living in a hotel but is unsure how much longer she can afford. She denies any pain, night sweats, weight loss, nausea or vomiting. She endorses feelings of anxiety and depression and poor outlook on her health. She also mentioned she recently had an MRI of the cervical spine which also revealed dilation of the ascending aorta and CT recommended. [facility] Medical History Cellulitis Surgical History No pertinent past surgical history Family History Mother No problems noted. Father No problems noted. Social History Housing: Homeless Alcohol intake: never Patient Tobacco Use Status: Never used Tobacco e-Cigarette/Vaping Use: Never Used Second Hand Smoke Exposure: No service: No Current occupational status: retired Cognitive needs: No Hearing needs: No Vision needs: Yes (glasses) Questionnaire PHQ-9 Over the last 2 weeks, how often have you been bothered by any of the following problems? 1. Little interest or pleasure in doing things: not at all 2. Feeling down, depressed, or hopeless: not at all 3. Trouble falling or staying asleep, or sleeping too much: not at all 4. Feeling tired or having little energy: not at all 5. Poor appetite or overeating: not at all 6. Feeling bad about yourself - or that you are a failure or have let yourself or your family down: not at all 7. Trouble concentrating on things, such as reading the newspaper or watching television: not at all 8. Moving or speaking so slowly that other people could have noticed. Or the opposite - being so fidgety or restless that you have been moving around a lot more than usual: not at all 9. Thoughts that you would be better off or of hurting yourself in some way: not at all Total score: 0 Depression Screening Interpretation: Negative Depression Screening Done: Yes 23198 - PHQ-9 Billing: Yes Source: Developed by Drs. Mark Haney, Yasmine Thompson, Errol Horne and colleagues, with an educational laura from [employer]. Thrive Questionnaire Date Thrive assessed: 05/08/23 AUDIT C Alcohol Use Questionnaire (AUDIT-C) 1. How often do you have a drink containing alcohol?: Never 3. How often do you have six or more drinks on one occasion?: Never Total Score: 0 Score Reviewed/Action Taken: Yes DANA-7 AMB Questionnaire DANA-7 Date DANA - 7 assessed: 05/08/23 Source: Developed by Drs. Mark Haney, Yasmine Thompson, Errol Horne and colleagues, with an educational laura from [employer]. Review of Systems Const Denies body aches, Denies chills, Denies fever(s), Denies headache(s) and Denies poor appetite Eyes Reports no additional complaints ENT Denies dysphagia, Denies dizziness, Denies headache(s) and Denies odynophagia Card Denies chest pain, Denies syncope, Denies edema, Denies irregular heart rhythm, Denies lightheadedness and Denies dyspnea Resp Denies cough and Denies dyspnea GI Denies abdominal pain, Denies constipation, Denies dysphagia, Denies diarrhea, Denies nausea, Denies odynophagia and Denies vomiting Reports no additional complaints Musc Reports no additional complaints and Denies abnormal gait Skin/Breast Reports system reviewed and no additional complaints, except as documented Neuro Denies abnormal gait, Denies dizziness, Denies syncope and Denies headache(s) Psych Reports no additional complaints Physical exam (Primary Care) Vital Signs: Last Vital Signs Pulse 75 12/01/23 10:41 BP 142/80 H 12/01/23 10:41 Pulse Ox 99 12/01/23 10:41 Oxygen Delivery Method Room Air 12/01/23 10:41 BMI result Body Mass Index 18.2 Tobacco/Smoking Status: Tobacco use Status Tobacco use date assessed 07/24/23 12/01/23 10:42 Patient Tobacco Use Status Never used Tobacco 12/01/23 10:42 e-Cigarette/Vaping Use Never Used 12/01/23 10:42 PHQ-9: PHQ-9 Score PHQ-9: Total score 0 12/01/23 11:11 Depression Screening Interpretation: Negative Thrive Assessment: Date of Thrive Assessment Date Thrive assessed 05/08/23 12/01/23 10:42 Const General: cooperative, healthy appearing, comfortable and no acute distress Orientation/consciousness: patient oriented x3 HENMT Head: Yes normocephalic Ears: hearing grossly normal bilaterally General nose exam: Normal external nose present Eyes General: appearance normal, both eyes and all related structures Conjunctivae: conjunctivae normal Neck Neck: Yes full ROM and Yes no lymphadenopathy Resp Effort & Inspection: normal respiratory effort Auscultation: clear to auscultation bilaterally, no crackles, no rales, no rhonchi and no wheezes Cardio Rate: regular rate Rhythm: regular rhythm Skin General skin exam: no rashes or lesions noted Neuro General: patient oriented x3 Gait exam (Neuro): Normal gait present Extrem General: Yes normal to inspection, Yes full ROM and No edema Psych Affect: normal affect Attitude: cooperative Insight: Good insight present (Psych) Judgement: Good judgement present (Psych) Assessment and Plan Assessment & Plan (1) Breast mass: Code(s): N63.0 - Unspecified lump in unspecified breast Plan: Discussed with patient at length the importance of having the breast mass biopsied by General surgery. Patient agrees to go to appointment as long as she can have transportation to appointment. Patient did speak with community health worker at this visit who is working on setting up transportation and housing. Patient denies any systemic symptoms at this time and we will continue to monitor. (2) Homeless: Code(s): Z59.00 - Homelessness unspecified Plan: Patient to discuss with community health worker today about possible housing options and we will work with insurance company for further management. 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 Patient has declined CT at this time. Recommend screening ultrasound in 6 months for surveillance. Patient agrees to have ultrasound. Plan This note was constructed using voice recognition software. While every effort has been made to ensure accuracy and green chain operator, still areas may have been included sometimes these areas may affect the content or meeting of the given symptoms. Total time spent caring for the patient today was 30 minutes. This includes time spent before the visit reviewing the chart, time spent during the visit, and time spent after the visit and documentation. Orders: Orders CA echo transthoracic complete 6 Months I77.810 - Thoracic aortic ectasia Coding Level of Care Code Est Pt Level 4 (40015) Diagnoses Breast mass N63.0 Homeless Z59.00 Ascending aorta dilation I77.810
== END 2023-12-01 11:14 | disposition home or self-care (01) ==
PROVIDERS: PCP Internal Medicine
DX: N63.25 Unspecified lump in the left breast, overlapping quadrants (principal); I77.810 Thoracic aortic ectasia; Z59.00 Homelessness unspecified
CPT/HCPCS: 99214

== ENCOUNTER 2024-01-11 14:57 | Outpatient (AMB) | payer MEDICARE, MEDICAID, SELFPAY ==
--- NOTE | 2024-01-11 15:01 | MHC.OFFVIS ---
Vital Signs 01/11/24 15:12 Height 5 ft Weight 93 lb 4 oz BMI 18.2 BP 159/76 H Blood Pressure Location Lt brachial Position Sitting Pulse 69 Intake Visit Reasons: Unspecified lump in unspecified breast Intake Note: Patient is seen in office for unspecified lump in unspecified breast. Pt c/o: left breast lump, onset months, unsure increase/decrease, discomfort to the touch, denies pain, had breast implants in the past, removed in 1993 us:11/20/23 Car Whacker Required: No Accompanied by: Self / Same As Patient Allergies bacitracin [BACITRACIN] Allergy (Unknown, Verified 01/11/24 15:08) UNKNOWN latex [LATEX] Allergy (Unknown, Verified 01/11/24 15:08) ITCHING penicillin V Allergy (Unknown, Verified 01/11/24 15:08) Unknown Penicillins [PENICILLINS] Allergy (Unknown, Verified 01/11/24 15:08) UNKNOWN Dye LONGTERM Red 2 (Amaranth) Allergy (Unknown, Uncoded 01/11/24 15:08) Unknown Dye LONGTERM Red 3 (Erythrosine) Allergy (Unknown, Uncoded 01/11/24 15:08) Unknown Dye LONGTERM Red 40 (Allura Red) Allergy (Unknown, Uncoded 01/11/24 15:08) Unknown Dye LONGTERM Red 40 ([place] Red) Allergy (Unknown, Uncoded 01/11/24 15:08) Unknown Latex Allergy (Unknown, Uncoded 01/11/24 15:08) Unknown Latex Gloves Allergy (Unknown, Uncoded 01/11/24 15:08) itching HPI Comments Details: 78-year-old female patient presenting for evaluation of a left breast mass noted on self examination several months ago. Patient has never undergone mammography and refuses mammography. Workup with ultrasound performed 11/20/2023 reveals a 3.7 x 2.9 by 1.1 cm lesion corresponding to the palpable lesion in the left breast in the 03:00 o'clock axis 4 cm from the nipple. This was felt to be suspicious for malignancy and biopsy recommended (BI-RADS 4). She denies a previous history of breast problems or breast surgery. [facility] Medical History (Updated 01/11/24 @ 15:08 by Arley Cantu MD) Cellulitis Surgical History Hx of hernia repair Hx of breast implants, bilateral No pertinent past surgical history Family History Mother No problems noted. Father No problems noted. Social History Housing: Homeless Alcohol intake: never Patient Tobacco Use Status: Never used Tobacco e-Cigarette/Vaping Use: Never Used Second Hand Smoke Exposure: No service: No Current occupational status: retired Cognitive needs: No Hearing needs: No Vision needs: Yes (glasses) Female Reproductive History Menstrual Age of Menarche: 11 Age of menopause: 48 Number of Living Children: 0 Ab induced: 2 Review of Systems Const All systems reviewed & are unremarkable except as noted in HPI and below Denies chills, Denies fever(s), Denies headache(s), Denies poor appetite and Denies weakness ENT Denies headache(s) Card Denies chest pain, Denies irregular heart rhythm, Denies palpitations and Denies dyspnea Resp Denies cough, Denies excessive phlegm production and Denies dyspnea GI Denies abdominal pain, Denies bloating, Denies change in bowel habits, Denies constipation, Denies heartburn, Denies diarrhea, Denies nausea and Denies vomiting Denies urinary frequency Musc Denies back pain, Denies muscle weakness and Denies numbness Skin/Breast Denies changing lesions and Denies unusual bruising Neuro Denies headache(s), Denies numbness, Denies paresthesias and Denies weakness Psych Denies anxiety and Denies depression Endo Denies palpitations Harry/Lymph Denies lymphadenopathy Physical Exam Vital Signs: Last Vital Signs Pulse 69 01/11/24 15:12 BP 159/76 H 01/11/24 15:12 BMI result Body Mass Index 18.2 Const General: cooperative and no acute distress Nutritional Appearance: well nourished Orientation/consciousness: patient oriented x3 Limitations: no limitations HEENT Head: Yes normocephalic and Yes atraumatic Ears: hearing grossly normal bilaterally Chest Other: Right breast: No skin change, nipple retraction, nipple discharge, palpable mass or enlarged lymph nodes Left breast: Palpable masses noted below, no skin change, no nipple retraction, no enlarged lymph nodes. Chest/axillae images: 1. 3 cm x 2 cm oblong-shaped mass mobile within the breast tissue, nontender, no overlying skin changes 2. 1 cm mobile density similar to the lateral lesion, not fixed to skin or chest wall. Resp Effort & Inspection: normal respiratory effort, no audible wheezes, no cough and no respiratory distress Cardio Jugular venous distension: no JVD GI Inspection: Yes normal to inspection Skin Other: Warm, dry, no rash Neuro General: patient oriented x3 Extrem General: Yes no clubbing, cyanosis or edema Assessment & Plan Assessment & Plan (1) Breast mass: Comment: left Code(s): N63.0 - Unspecified lump in unspecified breast Category: Medical Qualifiers: Breast mass location: upper outer quadrant Laterality: left Qualified Code(s): N63.21 - Unspecified lump in the left breast, upper outer quadrant Plan 78-year-old female patient presenting with a palpable breast mass noted in the left breast at the 3 o'clock position a proximally 2 months ago. The mass has not changed significantly since then. She has a prior history of bilateral breast implants which subsequently ruptured on the right side. Both breast implants were subsequently removed many years ago. She denies any recent breast trauma. On examination she is found to have a suspicious hard mass in the 3 o'clock position as well as the 9 o'clock position concerning for breast cancer. I recommended she consider proceeding to a ultrasound-guided core biopsy at the [facility]. I reviewed the procedure along with the risks and benefits. She is agreeable to proceed but is concerned about her living situation right now. Her electrical laboratory technician agreed to give her a ride to obtain the biopsy. I requested that she return following the biopsy to review the results and discuss treatment options. She understands and agrees with the plan. Orders: Orders US breast ndl core biopsy LT Today N63.21 - Unspecified lump in the left breast, upper outer quadrant Coding Level of Care Code New Pt Level 4 (22142) Diagnoses Mass of upper outer quadrant of left breast N63.21 Breast mass location: upper outer quadrant Laterality: left
[2024-01-11 15:12] VITALS: BP 159/76; PULSE 69; BMI 18.2
== END 2024-01-11 15:26 | disposition home or self-care (01) ==
PROVIDERS: PCP Internal Medicine; Visit Provider Surgery
DX: N63.21 Unspecified lump in the left breast, upper outer quadrant (principal)
CPT/HCPCS: 99204

== ENCOUNTER → 2024-01-11 14:57 | Outpatient (BNVA) | payer MEDICARE, MEDICAID, SELFPAY | PROVIDERS: PCP Internal Medicine; Visit Provider Surgery | DX: N63.21 Unspecified lump in the left breast, upper outer quadrant (principal) | CPT/HCPCS: 99202 ==

== ENCOUNTER → 2024-03-04 11:22 | Outpatient (BNVA) | payer MEDICARE, MEDICAID, SELFPAY | PROVIDERS: PCP Internal Medicine; Visit Provider Internal Medicine ==

== ENCOUNTER → 2024-03-12 16:21 | Outpatient (BNVA) | payer MEDICARE, MEDICAID, SELFPAY | PROVIDERS: PCP Internal Medicine | DX: Z01.89 Encounter for other specified special examinations (principal) ==

== ENCOUNTER 2024-06-14 16:01 | Outpatient (AMB) | payer MEDICARE, MEDICAID, SELFPAY ==
[2024-06-14 16:02] VITALS: BP 130/80; PULSE 69; O2SAT 98; BMI 19.2
--- NOTE | 2024-06-14 16:02 | MHC.PC.OV ---
Vital Signs 06/14/24 16:02 Height 5 ft Weight 98 lb 2 oz BMI 19.2 BP 130/80 Blood Pressure Location Lt brachial Position Sitting Pulse 69 Pulse Source Pulse Oximeter Pulse Oximetry (%) 98 Oxygen Delivery Method Room Air Intake Visit Reasons: uti symptoms Home School Teacher Required: No Accompanied by: Self / Same As Patient Allergies bacitracin [BACITRACIN] Allergy (Unknown, Verified 06/14/24 16:04) UNKNOWN latex [LATEX] Allergy (Unknown, Verified 06/14/24 16:04) ITCHING penicillin V Allergy (Unknown, Verified 06/14/24 16:04) Unknown Penicillins [PENICILLINS] Allergy (Unknown, Verified 06/14/24 16:04) UNKNOWN Dye NURSING HOME Red 2 (Amaranth) Allergy (Unknown, Uncoded 06/14/24 16:04) Unknown Dye NURSING HOME Red 3 (Erythrosine) Allergy (Unknown, Uncoded 06/14/24 16:04) Unknown Dye NURSING HOME Red 40 (Allura Red) Allergy (Unknown, Uncoded 06/14/24 16:04) Unknown Dye NURSING HOME Red 40 ([place] Red) Allergy (Unknown, Uncoded 06/14/24 16:04) Unknown Latex Allergy (Unknown, Uncoded 06/14/24 16:04) Unknown Latex Gloves Allergy (Unknown, Uncoded 06/14/24 16:04) itching Medication List - Last Reconciled 06/14/24 by Willa Robertson PA-C azithromycin take 500 mg today (day 1), then 250 mg for 4 days (days 2-5) PO azithromycin take 500 mg today (day 1), then 250 mg for 4 days (days 2-5) PO Tobacco use date assessed: 06/14/24 Fall risk assessment: 1 Fall in past year Last assessed Fall Risk: 06/14/24 Dental Screening Dental Screen Date: 06/14/24 Did you have a dental visit in the last 12 months?: No Did you have a dental problem in the last 6 months where you did not have access to dental care?: No Was dental information given to patient?: No HPI uti symptoms HPI Details 78-year-old female with past medical history of overactive bladder and breast mass last seen by Dr. Berkowitz 02/2024 coming in for acute problem. Presenting with frequent urination. She has increased urination frequency, without dysuria or hematuria. A possible urinary tract infection was suspected due to her urinary symptoms, though she denies systemic infection signs like fever. The patient expresses related concerns of living conditions contributing to respiratory symptoms but does not correlate them directly with her urinary issues. She adheres to a sugar-free diet to manage her weight and prevent familial health issues such as diabetes and obesity. [facility] Medical History Cellulitis Surgical History Hx of hernia repair Hx of breast implants, bilateral No pertinent past surgical history Family History Mother No problems noted. Father No problems noted. Social History Housing: Homeless Alcohol intake: never Patient Tobacco Use Status: Never used Tobacco e-Cigarette/Vaping Use: Never Used Second Hand Smoke Exposure: No service: No Current occupational status: retired Cognitive needs: No Hearing needs: No Vision needs: Yes (glasses) Female Reproductive History Menstrual Age of Menarche: 11 Questionnaire PHQ-9 Over the last 2 weeks, how often have you been bothered by any of the following problems? 1. Little interest or pleasure in doing things: not at all 2. Feeling down, depressed, or hopeless: not at all 3. Trouble falling or staying asleep, or sleeping too much: not at all 4. Feeling tired or having little energy: not at all 5. Poor appetite or overeating: not at all 6. Feeling bad about yourself - or that you are a failure or have let yourself or your family down: not at all 7. Trouble concentrating on things, such as reading the newspaper or watching television: not at all 8. Moving or speaking so slowly that other people could have noticed. Or the opposite - being so fidgety or restless that you have been moving around a lot more than usual: not at all 9. Thoughts that you would be better off or of hurting yourself in some way: not at all Total score: 0 Depression Screening Interpretation: Negative Depression Screening Done: Yes 44433 - PHQ-9 Billing: Yes Source: Developed by Drs. Mark Haney, Errol Lockwood and colleagues, with an educational laura from [email or web address]. Thrive Questionnaire Date Thrive assessed: 06/14/24 I am a: Patient What is your living situation today?: I have a steady place to live Within the past 12 months, did the food you bought not last and you didn't have the money to get more?: Never true Within the past 12 months, did you worry whether your food would run out before you got money to buy more?: Never true Do you have trouble paying for medicines?: No Do you have trouble getting transportation to medical appointments?: No Do you have trouble paying your heating and electricity bill?: No Do you have trouble taking care of your child, family member or friend?: No Do you have trouble with day-to-day activities such as bathing, preparing meals, shopping, managing finances, etc.?: No Are you currently unemployed and looking for a job?: No Are you interested in more education?: No Please select the resources that you would like help with: None Currently or been in a relationship where the following occur: No concerns reported THRIVE Score: 0 AUDIT C Alcohol Use Questionnaire (AUDIT-C) 1. How often do you have a drink containing alcohol?: Never 3. How often do you have six or more drinks on one occasion?: Never Total Score: 0 Score Reviewed/Action Taken: Yes DANA-7 AMB Questionnaire DANA-7 Date DANA - 7 assessed: 06/14/24 Feeling nervous, anxious, or on edge: 0 = Not at all Not being able to stop or control worryin = Not at all Worrying too much about different things: 0 = Not at all Trouble relaxin = Not at all Being so restless that it is hard to sit still: 0 = Not at all Becoming easily annoyed or irritable: 0 = Not at all Feeling afraid as if something awful might happen: 0 = Not at all Total DANA-7 score (0-4 normal; 5-9 mild; 10-14 moderate; 15-21 severe): 0 Source: Developed by Yasmine Fong Kurt Kroenke and colleagues, with an educational laura from [email or web address]. Review of Systems Const Denies body aches, Denies chills, Denies fever(s), Denies headache(s) and Denies poor appetite Eyes Reports no additional complaints ENT Denies dysphagia, Denies dizziness, Denies headache(s) and Denies odynophagia Card Denies chest pain, Denies syncope, Denies edema, Denies irregular heart rhythm, Denies lightheadedness and Denies dyspnea Resp Denies cough and Denies dyspnea GI Denies abdominal pain, Denies constipation, Denies dysphagia, Denies diarrhea, Denies nausea, Denies odynophagia and Denies vomiting Reports no additional complaints Musc Reports no additional complaints and Denies abnormal gait Skin/Breast Reports system reviewed and no additional complaints, except as documented Neuro Denies abnormal gait, Denies dizziness, Denies syncope and Denies headache(s) Psych Reports no additional complaints Physical exam (Primary Care) Vital Signs: Last Vital Signs Pulse 69 06/14/24 16:02 BP 130/80 06/14/24 16:02 Pulse Ox 98 06/14/24 16:02 Oxygen Delivery Method Room Air 06/14/24 16:02 BMI result Body Mass Index 19.2 Tobacco/Smoking Status: Tobacco use Status Tobacco use date assessed 06/14/24 06/14/24 16:04 Patient Tobacco Use Status Never used Tobacco 06/14/24 16:04 e-Cigarette/Vaping Use Never Used 06/14/24 16:04 PHQ-9: PHQ-9 Score PHQ-9: Total score 0 06/14/24 16:04 Depression Screening Interpretation: Negative Thrive Assessment: Date of Thrive Assessment Date Thrive assessed 06/14/24 06/14/24 16:04 Currently or been in a relationship where the following occur: No concerns reported Const General: cooperative, healthy appearing, comfortable and no acute distress Orientation/consciousness: patient oriented x3 HENMT Head: Yes normocephalic Ears: hearing grossly normal bilaterally General nose exam: Normal external nose present Eyes General: appearance normal, both eyes and all related structures Conjunctivae: conjunctivae normal Neck Neck: Yes full ROM and Yes no lymphadenopathy Resp Effort & Inspection: normal respiratory effort Auscultation: clear to auscultation bilaterally, no crackles, no rales, no rhonchi and no wheezes Cardio Rate: regular rate Rhythm: regular rhythm Skin General skin exam: no rashes or lesions noted Neuro General: patient oriented x3 Gait exam (Neuro): Normal gait present Extrem General: Yes normal to inspection, Yes full ROM and No edema Psych Affect: normal affect Attitude: cooperative Insight: Good insight present (Psych) Judgement: Good judgement present (Psych) Results AMB Urinalysis, Automated UA Leukoctes 0 Malu/uL Last Edit by Shannan Penny CMA on 06/14/24 17:01 UA Nitrite Negative Last Edit by Shannan Penny, [facility] on 06/14/24 17:01 UA Urobilinogen 0.2 mg/dL Last Edit by Shannan Penny, [facility] on 06/14/24 17:01 UA Protein 0 mg/dL Last Edit by Shannan Penny, [facility] on 06/14/24 17:01 UA pH 6.0 Last Edit by Shannan Penny, [facility] on 06/14/24 17:01 UA Blood 0 Connor/uL Last Edit by Shannan Penny, [facility] on 06/14/24 17:01 UA Specific [place] 1.020 Last Edit by Shannan Penny, [facility] on 06/14/24 17:01 UA Ketone Negative Last Edit by Shannan Penny, [facility] on 06/14/24 17:01 UA Bilirubin 0 mg/dL Last Edit by Shannan Penny, [facility] on 06/14/24 17:01 UA Glucose 0 mg/dL Last Edit by Shannan Penny, [facility] on 06/14/24 17:01 Coding Level of Care Code Est Pt Level 3 (31088) Diagnoses Urinary frequency R35.0 Additional Codes PHQ-9 - 28957 - PHQ-9 Billing: Yes ([id number]) Assessment & Plan Assessment & Plan (1) Urinary frequency: Code(s): R35.0 - Frequency of micturition Category: Medical Plan: The patient's frequent urination requires further examination through a urine sample to rule out a urinary tract infection. If positive, treatment with antibiotics will be initiated, considering her kidney function. There is no immediate evidence of systemic infection, but follow-up care will be highlighted should symptoms change. Although the patient is keen on discussing obesity cures she has devised, there will be no direct medical referral for this, as her weight is stable. Emphasis will remain on maintaining her current healthy lifestyle and dietary habits. Urine negative plan to follow up with urology if symptoms are persistent. Plan Patient was informed and verbally consented to the use of an ambient scribe for clinic note documentation during this visit. This note was constructed using voice recognition software. While every effort has been made to ensure accuracy and nuclear fuels research engineer, still areas may have been included sometimes these areas may affect the content or meeting of the given symptoms. Total time spent caring for the patient today was 20 minutes. This includes time spent before the visit reviewing the chart, time spent during the visit, and time spent after the visit and documentation.
--- OUTSIDE RECORDS SUMMARY | 2024-06-14 17:21 | XMS_ITS ---
Author Name [facility] [facility] [place] [facility] [place] Address [address] [place] [id number] Support Name Relationship Address Phone VLADIMIR OVIEDO Next of Kin [address] [place] VLADIMIR OVIEDO Emergency Contact [address] [place] Selected Encounter This section includes the information on record at [place] for the Encounter. Date/Time Encounter Type Encounter Description Reason Pro vider Source Jun 11, 2024 11:40 AM Outpatient Encounter TELEPHONE/HUD-VAS IHE Encounter Template Text not used by CT Advance Directives: All historical and current Section Date Range: From patient's date of to the date document was created. This section includes ALL of a patient's completed or amended [place] Advance and Rescinded Directives. The entries below indicate that a directive exists for the patient, but an actual copy is not included with this document. The data comes from all [place] facilities. Date Advance Directives Provider Source August 12, 2023 ADVANCE DIRECTIVE DISCUSSION PATRIC DOWD Encounter Notes: All associated encounter notes This section contains the clinical notes associated to the Encounter. Date/Time Encounter Note(s) Provider Source Jun 11, 2024 11:40 AM HOMELESS PROGRAM T ELEPHONE ENCOUNTER NOTE: LOCAL TITLE: [id number] CONTACT STANDARD TITLE: HOMELESS PROGRAM TELEPHONE ENCOUNTER NOTE DATE OF NOTE: JUN 11, 2024@11:40 ENTRY DATE: JUN 13, 2024@15:04:52 AUTHOR: IRINA GRANT COSIGNER: URGENCY: STATUS: COMPLETED CLICK HERE TO BEGIN Telephone contact with [place] identified by (select two): Full Name, Length of contact:3 min Case management stage:Intensive Diagnosis Addressed:z 59.89 Subject of call:(click one or more)schedule an in-person visit Description of contact:TW received a call from Emanuel new phone number [phone]. reports she change her phone and her phone number. We agreed to meet next Monday 11 am. TW also notify about VSO trying to reach out her. [place] reports she will call him. Notable changes in mental status:none Any clinical indications of increased risk? No If yes, CSSRS was completed on this date Next Steps:email to update Emanuel new phone number. Monday 11 am /es/ RENEE OLIVARES Consulting Marine Engineer Signed: 06/13/2024 15:08 Receipt Acknowledged By: 06/14/2024 09:07 /es/ CHRIS POOLE [employer] F[employer]ER 06/14/2024 11:38 /es/ DELMA OLIVARES Instructor Warper RENEE GRANT
--- OUTSIDE RECORDS SUMMARY | 2024-06-14 17:21 | XMS_ITS | Encounter Summary ---
Author Name [facility] [facility] [place] Address [address] [place] [id number] Support Name Relationship Address Phone VLADIMIR OVIEDO Next of Kin [address] [place] VLADIMIR OVIEDO Emergency Contact [address] [place] Selected Encounter This section includes the information on record at [place] for the Encounter. Date/Time Encounter Type Encounter Description Reason Provider Source Mar 04, 2024 06:59 PM HC PRO PHONE CALL 21-30 MIN HUD/VASH INDIV ICD-10-CM Z59.01 Sheltered homelessness GUADALUPE CORDOVA E Encounter Template Text not used by [place] Assessments - Encounter Diagnoses This section includes the primary and secondary diagnoses documented for the Encounter. Date/Time Primary/Secondary Diagnosis Diagnosis Name Provider Source May 18, 2024 07:16 PM PRIMARY Sheltered homelessness GUADALUPE CORDOVA [facility] Advance Directives: All historical and current Section Date Range: From patient's date of to the date document was created. This section includes ALL of a patient's completed or amended [place] Advance and Rescinded Directives. The entries below indicate that a directive exists for the patient, but an actual copy is not included with this document. The data comes from all [place] facilities. Date Advance Directives Provider Source August 12, 2023 ADVANCE DIRECTIVE DISCUSSION PATRIC DOWD Encounter Notes: All associated encounter notes This section contains the clinical notes associated to the Encounter. Date/Time Encounter Note(s) Provider Source Mar 04, 2024 07:15 PM HOMELESS PROGRAM TELEPHONE ENCOUNTER NOTE: LOCAL TITLE: [id number] CONTACT STANDARD TITLE: HOMELESS PROGRAM TELEPHONE ENCOUNTER NOTE DATE OF NOTE: MAR 04, 2024@19:15 ENTRY DATE: MAY 18, 2024@19:15:46 AUTHOR: FRANCES CORDOVA EXP COSIGNER: URGENCY: STATUS: COMPLETED Telephone contact with identified by (select two): Full Name, SSN Length of contact:25 minutes Case management stage:Intensive Diagnosis Addressed:homelessness Subject of call:(click one or more)Housing and wellness Description of contact:Checked in with who calls each week most days regarding housing and overall coping and wellness. Offered support and assistance. Notable changes in mental status:Oriented x3, insight and [employer] wnl, affect congruent to the content of call. no si/hi reported Any clinical indications of increased risk? No If yes, CSSRS was completed on this date Next Steps:Secure housing /es/ [facility] Signed: 05/18/2024 19:17 FRANCES CORDOVA [place] [facility]
--- OUTSIDE RECORDS SUMMARY | 2024-06-14 17:22 | XMS_ITS | Continuity of Care Document ---
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 It does not include entries that were removed or entered in error. Problem Status Onset Date Problem Type Date of Resolution Comments Source Homeless single person Active Condition [facility] Diagnosis: ICD-10-CM Z59.89 Other problems related to housing and economic circumstances Active Diagnosis [place] Diagnosis: ICD-10-CM Z59.01 Sheltered homelessness Active Diagnosis [facility] Diagnosis: ICD-10-CM Z59.00 Homelessness unspecified Active Diagnosis [facility] Encounters Combined list of: 1) Encounters from Department of Veterans Affairs facilities going backup to the last 18 months, not all VA inpatient encounters are included; 2) Encounters from the Department of Defense facilities going backup to 280 months. Location Location Details Encounter Type Encounter Number Reason For Visit Attending Provider ADM Date DC Date Status Disposition Source [facility] PT EDUCATION NOC INDIVID [id number] Diagnos is: ICD-10- CM Z59.01 [facility] joanie BANKSMAMTA AN L 05/26 [facility] HC PRO PHONE CALL 5-10 MIN [id number] Diagnos is: ICD-10- CM Z59.01 [facility] joanie BANKSMAMTA AN L 06/06 [facility] PT EDUCATION NOC INDIVID [id number] Diagnos is: ICD-10- CM Z59.01 [facility] jo[facility] BANKSM[facility] AN L 06/07 [facility] HC PRO PHONE CALL 5-10 MIN [id number] Diagnos is: ICD-10- CM Z59.01 [facility] homeles MAMTA Shaw AN L [facility] CASE MANAGEMENT [id number] Diagnos is: ICD-10- CM Z59.01 [facility] homeles MAMTA Shaw AN L 06/08 [facility] CASE MANAGEMENT [id number] Diagnos is: ICD-10- CM Z59.01 [facility] homeles MAMTA Shaw AN L 06/11 [facility] PRO PHONE CALL 5-10 MIN [id number] Diagnos is: ICD-10- CM Z59.01 [facility] homeles MAMTA Shaw AN L 06/12 [facility] SUICIDE RISK ASSESSED [id number] Diagnos is: ICD-10- CM Z59.01 [facility] homeles MAMTA Shaw AN L 06/18 [facility] CASE MANAGEMENT [id number] Diagnos is: ICD-10- CM Z59.01 [facility] homeles MAMTA Shaw AN L 06/22 [facility] PT EDUCATION NOC INDIVID [id number] Diagnos is: ICD-10- CM Z59.01 [facility] homeles MAMTA Shaw AN L 06/27 [facility] PT EDUCATION NOC INDIVID [id number] Diagnos is: ICD-10- CM Z59.01 [facility] homeles MAMTA Shaw AN L 07/03 [facility] PT EDUCATION NOC INDIVID [id number] Diagnos is: ICD-10- CM Z59.01 [facility] homeles MAMTA Shaw AN L 07/11 [facility] Out[facility] Encounter [id number] 07/11 [facility] En[facility] [id number] 07/13 [facility] CASE MANAGEMENT [id number] Diagnos is: ICD-10- CM Z59.01 [facility] homeles MAMTA Shaw AN L 07/18 [facility] PSYCH DIAGNOSTIC EVALUATION [id number] Diagnos is: ICD-10- CM Z59.01 [facility] homeles MAMTA Shaw AN L 07/18 [facility] [id number] 07/23 [facility] En[facility] [id number] 07/24 [facility] PROGRAM INTAKE ASSESSMENT [id number] Diagnos is: ICD-10- CM Z59.01 [facility] homeles joanie LAWRENCE,MAR IA 07/26 [place] [facility] En[facility] [id number] MARITZA LAWRENCE,MONICA IA 07/26 [facility] HC PRO PHONE CALL 5-10 MIN [id number] Diagnos is: ICD-10- CM Z59.01 [facility] homeles MAMTA Shaw AN L 07/30 [facility] PRO PHONE CALL 5-10 MIN [id number] Diagnos is: ICD-10- CM Z59.01 [facility] homeles MAMTA Shaw AN L 08/02 [facility] En[facility] [id number] 08/13 [facility] En[facility] [id number] 08/16 [facility] PT EDUCATION NOC INDIVID [id number] Diagnos is: ICD-10- CM Z59.01 [facility] homeles MAMTA Shaw AN L 08/17 [facility] PT EDUCATION NOC INDIVID [id number] Diagnos is: ICD-10- CM Z59.01 [facility] homeles MAMTA Shaw AN L 08/21 [facility] PRO PHONE CALL 5-10 MIN [id number] Diagnos is: ICD-10- CM Z59.01 [facility] anisha BANKS,MAMTA AN L 08/28 [facility] PT EDUCATION NOC INDIVID [id number] Diagnos is: ICD-10- CM Z59.01 [facility] homeles snMAMTA Rajan AN L 08/29 [facility] PRO PHONE CALL 5-10 MIN [id number] Diagnos is: ICD-10- CM Z59.01 [facility] homeles MAMTA Shaw AN L 09/04 [facility] [id number] 09/06 [facility] En[facility] [id number] 09/06 [facility] Encounter [id number] Diagnos is: ICD-10- CM Z59.01 [facility] joanie BANKS,MAMTA AN L 09/11 [facility] En[facility] [id number] Diagnos is: ICD-10- CM Z59.01 [facility] hom[facility] MARILYNN Tyson L 09/12 [facility] [id number] 09/16 [facility] Encounter [id number] 09/17 [facility] PT EDUCATION NOC INDIVID [id number] Diagnos is: ICD-10- CM Z59.01 [facility] homeles sness BENJUAN,MAMTA AN L 09/18 [facility] Outpatient Encounter [id number] 09/21 [facility] HC PRO PHONE CALL 5-10 MIN [id number] Diagnos is: ICD-10- CM Z59.01 [facility] homeles sness MARILYNN CORDOVA L 09/21 [facility] HC PRO PHONE CALL 5-10 MIN [id number] Diagnos is: ICD-10- CM Z59.01 [facility] snanisha BANKS,MAMTA AN L 09/24 [facility] CASE MANAGEMENT [id number] Diagnos is: ICD-10- CM Z59.01 [facility] homeles snMARILYNN Fragoso L 09/24 [facility] Outpatient Encounter [id number] 09/27 [facility] HC PRO PHONE CALL 5-10 MIN [id number] Diagnos is: ICD-10- CM Z59.01 [facility] homeles sness JOCELYN,MAMTA AN L 09/28 [facility] HC PRO PHONE CALL 11-20 MIN [id number] Diagnos is: ICD-10- CM Z59.00 Homeles sness unspeci fied MARILYNN CORDOVA L 09/28 [facility] HC PRO PHONE CALL 11-20 MIN [id number] Diagnos is: ICD-10- CM Z59.01 [facility] homeles sness MARILYNN CORDOVA L 10/01 [facility] CASE MANAGEMENT [id number] Diagnos is: ICD-10- CM Z59.01 [facility] homeles sness BENWAY,MAMTA AN L 10/02 [facility] Outpatient Encounter [id number] Diagnos is: ICD-10- CM Z59.01 [facility] homeles sness ART,MARILYNN SKINNER L 10/02 [facility] Outpatient [facility]counter [id number] 10/02 [facility] HC PRO PHONE CALL 11-20 MIN [id number] Diagnos is: ICD-10- CM Z59.01 [facility] homeles sness ART,MARILYNN SKINNER L 10/03 [facility] HC PRO PHONE CALL 5-10 MIN [id number] Diagnos is: ICD-10- CM Z59.01 [facility] homeles sness BENJUAN,MAMTA AN L 10/03 [facility] HC PRO PHONE CALL 5-10 MIN [id number] Diagnos is: ICD-10- CM Z59.01 [facility] homeles sness ARTMARILYNN CHAVEZ L 10/05 [facility] Outpatient Encounter [id number] Diagnos is: ICD-10- CM Z59.01 [facility] homeles MARILYNN Tyson L 10/08 [facility] HC PRO PHONE CALL 21-30 MIN [id number] Diagnos is: ICD-10- CM Z59.01 [facility] MARILYNN Tyson L 10/12 [facility] Outpatient Encounter [id number] Diagnos is: ICD-10- CM Z59.01 [facility] snanisha BANKSMAMTA AN L 10/16 [facility] CASE MANAGEMENT [id number] Diagnos is: ICD-10- CM Z59.01 [facility] MARILYNN Tyson L 10/18 [facility] HC PRO PHONE CALL 21-30 MIN [id number] Diagnos is: ICD-10- CM Z59.01 [facility] homeles MARIA E Welsh 10/22 [facility] HC PRO PHONE CALL 5-10 MIN [id number] Diagnos is: ICD-10- CM Z59.01 [facility] hom[facility] snanisha BANKSMAMTA AN L 10/30 [facility] PRO PHONE CALL 11-20 MIN [id number] Diagnos is: ICD-10- CM Z59.01 [facility] hom[facility] MARILYNN Tyson L 10/30 [facility] CASE MANAGEMENT [id number] Diagnos is: ICD-10- CM Z59.01 [facility] homeles sness MARILYNN CORDOVA L 11/02 [facility] HC PRO PHONE CALL 11-20 MIN [id number] Diagnos is: ICD-10- CM Z59.01 [facility] homeles sness MARILYNN CORDOVA L 11/06 [facility] HC PRO PHONE CALL 5-10 MIN [id number] Diagnos is: ICD-10- CM Z59.01 [facility] homeles sness MARILYNN CORDOVA L 11/08 [facility] CASE MANAGEMENT [id number] Diagnos is: ICD-10- CM Z59.00 Homeles sness unspeci fied MARILYNN CORDOVA L 11/09 [facility] PRO PHONE CALL 11-20 MIN [id number] Diagnos is: ICD-10- CM Z59.01 [facility] homeles sness MARILYNN CORDOVA L 11/12 [facility] PRO PHONE CALL 21-30 MIN [id number] Diagnos is: ICD-10- CM Z59.01 [facility] homeles sness ART,MARILYNN SKINNER L 11/13 [facility] PRO PHONE CALL 5-10 MIN [id number] Diagnos is: ICD-10- CM Z59.01 [facility] homeles sness BENWAY,MAMTA AN L 11/13 [facility] HC PRO PHONE CALL 11-20 MIN [id number] 1. Diagnos is: ICD-10- CM Z59.01 [facility] homeles sness MARILYNN CORDOVA L 11/15 [facility] En[facility] [id number] Diagnos is: ICD-10- CM Z59.01 [facility] homeles sness MARILYNN CORDOVA L 11/16 [facility] HC PRO PHONE CALL 11-20 MIN [id number] 1. Diagnos is: ICD-10- CM Z59.01 [facility] homeles sness MARILYNN CORDOVA L 11/19 [facility] HC PRO PHONE CALL 11-20 MIN [id number] Diagnos is: ICD-10- CM Z59.01 [facility] MARILYNN Tyson L 11/20 [facility] PRO PHONE CALL 5-10 MIN [id number] Diagnos is: ICD-10- CM Z59.01 [facility] homeles sness MAMTA BANKS AN L 11/21 [facility] PRO PHONE CALL 5-10 MIN [id number] Diagnos is: ICD-10- CM Z59.01 [facility] homeles sness MARILYNN CORDOVA L 11/22 [facility] PRO PHONE CALL 21-30 MIN [id number] Diagnos is: ICD-10- CM Z59.01 [facility] homeles sness MARILYNN CORDOVA L 11/23 [facility] PRO PHONE CALL 5-10 MIN [id number] Diagnos is: ICD-10- CM Z59.01 [facility] homeles sness MARILYNN CORDOVA L 11/27 [facility] PRO PHONE CALL 11-20 MIN [id number] Diagnos is: ICD-10- CM Z59.01 [facility] homeles sness MARILYNN CORDOVA L 11/29 [facility] Outpatient Encounter [id number] 11/30 [facility] HC PRO PHONE CALL 11-20 MIN [id number] Diagnos is: ICD-10- CM Z59.01 [facility] homeles sness MARILYNN CORDOVA L 11/30 [facility] CASE MANAGEMENT [id number] Diagnos is: ICD-10- CM Z59.00 Homeles sness unspeci fied MARILYNN CORDOVA L 12/06 [facility] PRO PHONE CALL 11-20 MIN [id number] Diagnos is: ICD-10- CM Z59.01 [facility] homeles sness MARILYNN CORDOVA L 12/13 [facility] PRO PHONE CALL 11-20 MIN [id number] Diagnos is: ICD-10- CM Z59.01 [facility] homeles sness ARTMARILYNN CHAVEZ 12/17 [facility] HC PRO PHONE CALL 11-20 MIN [id number] Diagnos is: ICD-10- CM Z59.01 [facility] homeles sness ART,MARILYNN SKINNER L 12/20 [facility] HC PRO PHONE CALL 21-30 MIN [id number] 1. Diagnos is: ICD-10- CM Z59.01 [facility] homeles sness ART,MARILYNN Fu 12/24 [facility] HC PRO PHONE CALL 21-30 MIN [id number] 1. Diagnos is: ICD-10- CM Z59.01 [facility] homeles sness ART,MARILYNN Fu 12/28 [facility] PRO PHONE CALL 21-30 MIN [id number] Diagnos is: ICD-10- CM Z59.01 [facility] homeles sness ART,MARILYNN Fu 01/03 [facility] PRO PHONE CALL 21-30 MIN [id number] Diagnos is: ICD-10- CM Z59.01 [facility] homeles sness ART,MARILYNN Fu 01/04 [facility] PRO PHONE CALL 11-20 MIN [id number] Diagnos is: ICD-10- CM Z59.01 [facility] homeles sness ARTMARILYNN 01/07 [facility] PRO PHONE CALL 11-20 MIN [id number] 1. Diagnos is: ICD-10- CM Z59.01 [facility] MARILYNN Tyson 01/08 [facility] [place] SELF-HELP/ PEER SVC PER 15MIN [id number] Diagnos is: ICD-10- CM Z59.01 [facility] snanisha POOLE,CY NTHIA 01/10 [place] [facility] HC PRO PHONE CALL 21-30 MIN [id number] 1. Diagnos is: ICD-10- CM Z59.01 [facility] MARILYNN Tyson L 01/11 [facility] [place] SELF-HE[place]/ PEER SVC PER 15MIN [id number] Diagnos is: ICD-10- CM Z59.01 [facility] snanisha POOLE,CY NTHIA 01/11 [place] [facility] PRO PHONE CALL 11-20 MIN [id number] Diagnos is: ICD-10- CM Z59.01 [facility] hom[facility] MARILYNN Tyson L 01/14 [facility] PRO PHONE CALL 5-10 MIN [id number] Diagnos is: ICD-10- CM Z59.01 [facility] MARILYNN Tyson L 01/15 [facility] [place] SELF-HELP/ PEER SVC PER 15MIN [id number] Diagnos is: ICD-10- CM Z59.01 [facility] snanisha POOLE,CY NTHIA 01/16 [place] [facility] PRO PHONE CALL 21-30 MIN [id number] Diagnos is: ICD-10- CM Z59.01 [facility] homeles sness ART,MARILYNN SKINNER L 01/17 [facility] [place] SELF-HELP/ PEER SVC PER 15MIN [id number] Diagnos is: ICD-10- CM Z59.01 [facility] homeles sness ZULEMA,CY NTHIA 01/17 [place] [facility] PRO PHONE CALL 21-30 MIN [id number] 1. Diagnos is: ICD-10- CM Z59.01 [facility] homeles sness MARILYNN CORDOVA L 01/25 [facility] [place] Outpatient Encounter [id number] 1. MARILYNN CORDOVAY L 01/29 [facility] [place] CASE MANAGEMENT [id number] 1. Diagnos is: ICD-10- CM Z59.00 Homeles sness unspeci fied ART,MARILYNN WEINSTEINY L 02/01 [facility] [place] PRO PHONE CALL 21-30 MIN [id number] 1. Diagnos is: ICD-10- CM Z59.00 Homeles sness unspeci fied MARILYNN CORDOVAY L 02/04 [facility] [place] [facility] CASE MANAGEMENT [id number] 1. MARILYNN CORDOVAY L 02/05 [facility] [place] [facility] CASE MANAGEMENT [id number] Diagnos is: ICD-10- CM Z59.01 [facility] ed homeles sness ART,MARILYNN WEINSTEINY L 02/05 [facility] [place] CASE MANAGEMENT [id number] 1. Diagnos is: ICD-10- CM Z59.01 [facility] ed homeles MARILYNN Tyson L 02/05 [facility] [place] SELF-HELP/ PEER SVC PER 15MIN [id number] Diagnos is: ICD-10- CM Z59.89 Other problem s related to housing and economi c circums mundo POOLE,CY NTHIA 02/06 [place] SELF-HELP/ PEER SVC PER 15MIN [id number] Diagnos is: ICD-10- CM Z59.89 Other problem s related to housing and economi c aide POOLE,CY NTHIA 02/06 [place] [facility] [place] PRO PHONE CALL 21-30 MIN [id number] 1. Diagnos is: ICD-10- CM Z59.01 [facility] ed homeles MARILYNN Tyson L 02/14 [facility] [place] [facility] CASE MANAGEMENT [id number] 1. Diagnos is: ICD-10- CM Z59.01 [facility] ed homeles MARILYNN TysonY L 02/19 [facility] [place] [facility] PRO PHONE CALL 11-20 MIN [id number] 1. Diagnos is: ICD-10- CM Z59.01 [facility] ed homeles MARILYNN TysonY L 02/22 [facility] [place] [facility] [facility] CASE MANAGEMENT [id number] 1. Diagnos is: ICD-10- CM Z59.01 [facility] ed homeles MARILYNN TysonY L 02/25 [facility] [place] [facility] [place] SELF-HELP/ PEER SVC PER 15MIN [id number] Diagnos is: ICD-10- CM Z59.01 [facility] ed homeles CLAUDIA Gonzales NTHIA 02/27 [place] [facility] PRO PHONE CALL 21-30 MIN [id number] 1. Diagnos is: ICD-10- CM Z59.01 [facility] ed homeles MARILYNN Tyson L 03/04 [place] [facility] [place] [facility] [place] [facility] Outpatient Encounter [id number] 1.03/05 [facility] [place] [place] PRO PHONE CALL 11-20 MIN [id number] 1. Diagnos is: ICD-10- CM Z59.01 [facility] ed homeles MARILYNN Tyson L 03/14 [place] [facility] [place] [facility] [place] [facility] CASE MANAGEMENT [id number] 1. Diagnos is: ICD-10- CM Z59.01 [facility] ed [facility] MARILYNN Tyson L 03/21 [place] [facility] [place] [facility] [place] [facility] PRO PHONE CALL 21-30 MIN [id number] 1. Diagnos is: ICD-10- CM Z59.01 [facility] ed homeles MARILYNN Tyson L 03/22 [facility] [place] [place] [facility] [place] SELF-HELP/ PEER SVC PER 15MIN [id number] Diagnos is: ICD-10- CM Z59.89 Other problem s related to housing and economi c circums CLAUDIA Riley NTHIA 03/29 [place] [facility] [place] CASE MANAGEMENT [id number] 1. Diagnos is: ICD-10- CM Z59.01 [facility] ed hom[facility] MARILYNN Tyson L 04/01 [place] [facility] [place] [facility] [place] [facility] CASE MANAGEMENT [id number] Diagnos is: ICD-10- CM Z59.89 Other problem s related to housing and economi c Finn Virk USTAVO A 04/05 [place] [facility] [place] [facility] [place] [facility] CASE MANAGEMENT [id number] 1. Diagnos is: ICD-10- CM Z59.01 [facility] ed homeles MARILYNN Tyson L 04/05 [place] [place] [facility] [place] [facility] CASE MANAGEMENT [id number] 1. Diagnos is: ICD-10- CM Z59.89 Other problem s related to housing and economi c Finn Virk USTAVO A 04/09 [place] [facility] [place] [facility] [place] [facility] PH1 ASSMT&MGMT NQHP 21-30 [id number] 1. Diagnos is: ICD-10- CM Z59.01 [facility] ed [facility] MARILYNN Tyson L 04/12 [facility] [place] [facility] CASE MANAGEMENT [id number] Diagnos is: ICD-10- CM Z59.89 Other problem s related to housing and economi c aide MOOREFinn USTAVO A 04/16 [place] [facility] [id number] Diagnos is: ICD-10- CM Z59.89 Other problem s related to housing and economi c aide LEWISZ Finn MOORE USTAVO A 04/23 [place] [facility] [place] Outpatient Encounter [id number] Finn GRANT USTAVO A 04/25 [facility] Encounter [id number] 04/29 [facility] PH1 ASSMT&MGMT NQHP 11-20 [id number] Diagnos is: ICD-10- CM Z59.01 [facility] ed homeles MARILYNN Tsyon 04/30 [facility] Encounter [id number] 05/08 [facility] Encounter [id number] 05/10 [facility] Encounter [id number] 05/10 [facility] [place] [facility] CASE MANAGEMENT [id number] Diagnos is: ICD-10- CM Z59.89 Other problem s related to housing and economi c aide [facility] Finn GRANT USTAVO A 05/14 [place] [facility] Out[facility] Encounter [id number] 05/28 [facility] Encounter [id number] 06/06 [facility] Out[facility] Encounter [id number] 06/11 [facility] Advance Directives List of completed, amended, or rescinded Advance Directives on record at Department of [facility] facilities. An actual copy of the Directive is not included. Date Advance Directive Provider Source 08/12/2023 ADVANCE DIRECTIVE DISCUSSION PATRIC DOWD
--- OUTSIDE RECORDS SUMMARY | 2024-06-14 17:22 | XMS_ITS | Encounter Summary ---
Author Name [facility] [facility] [place] Address [address] [place] [address] Support Name Relationship Address Phone VLADIMIR OVIEDO Next of Kin [address] [place] VLADIMIR OVIEDO Emergency Contact [address] [place] Selected Encounter This section includes the information on record at [place] for the Encounter. Date/Time Encounter Type Encounter Description Reason Provider Source Sep 19, 2023 01:16 PM PT EDUCATION NOC INDIVID [facility]/HCMI INDIV ICD-10-CM Z59.01 Sheltered homelessness DORA BANKS IHE Encounter Template Text not used by [place] Assessments - Encounter Diagnoses This section includes the primary and secondary diagnoses documented for the Encounter. Date/Time Primary/Secondary Diagnosis Diagnosis Name Provider Source Sep 22, 2023 01:09 PM PRIMARY Sheltered [facility] DORA BANKS [facility] Advance Directives: All historical and current Section Date Range: From patient's date of to the date document was created. This section includes ALL of a patient's completed or amended [place] Advance and Rescinded Directives. The entries below indicate that a directive exists for the patient, but an actual copy is not included with this document. The data comes from all [place] facilities. Date Advance Directives Provider Source August 12, 2023 ADVANCE DIRECTIVE DISCUSSION PATRIC DOWD Encounter Notes: All associated encounter notes This section contains the clinical notes associated to the Encounter. Date/Time Encounter Note(s) Provider Source Sep 19, 2023 01:16 PM HOMELESS PROGRAM N OTE: LOCAL TITLE: HOMELESS OUTREACH STANDARD TITLE: HOMELESS PROGRAM NOTE DATE OF NOTE: SEP 19, 2023@13:16 ENTRY DATE: SEP 19, 2023@13:16:19 AUTHOR: DORA BANKS COSIGNER: RADHA ABDI URGENCY: STATUS: COMPLETED HOMELESS OUTREACH Has ADDENDA This freelance copywriter called papi upon arriving to the hotel to notify her that a vehicle is unable to go around the back of the hotel as it is only a walking path. Papi became upset and reported she would meet this freelance copywriter at the front door. Papi called this freelance copywriter while standing inside the doorway if you can't see me in this garbage then there is something wrong with you and demanded this freelance copywriter assist her with putting her walker in the car prior to getting in the vehicle. This freelance copywriter assisted with placing her walker in the vehicle prior to her coming out of the hotel. Papi walked to the vehicle and was yelling at this freelance copywriter to move the vehicle away from the garbage . Papi declined buckling her seatbelt and continued yelling. This freelance copywriter explained that she cannot operate the car without her seatbelt on. Papi was not receptive to this freelance copywriter offering to assist and was insistent that the seatbelt was not working. this is what happens when you call the shots and we do things your way, it is my turn to call the shots . Papi asked this freelance copywriter to stop speaking and continued to yell at this freelance copywriter to leave the parking lot to get away from the garbage . This freelance copywriter observed papi to be in great distress. This freelance copywriter reported she was unable to transport papi in her current state. Papi was able to buckle her seatbelt, calm down, and asked to go to the [employer] mall instead of the assisted. This freelance copywriter validated and inquired if she wanted to go to the assisted after leaving parking lot, agreed. This freelance copywriter observed papi's demeanor to change drastically upon leaving the parking lot as she was no longer near the garbage . This freelance copywriter transported papi to [facility]'s assisted for a tour. During the ride, papi apologized for being nasty towards this freelance copywriter. She spoke at length about finding the cure for cellulite. Papi spoke at length about her parents and traveling to various states as well as living in different places. Papi reported that she really wants to get out of the hotel and is open to the women's assisted. Mehnaz showed papi a tour of the assisted and showed papi where her room would be. [place]ay expressed concerns for the dba manager that were present in the room. Mehnaz went over the rules of the assisted and papi appeared receptive and understanding of what was expected. There was discussion of transitioning from living by herself to being around others again and the support that would be provided. Mehnaz reported she would contact ANYA Campbell to arrange for transportation for admission tomorrow. This freelance copywriter went over process and this freelance copywriter taking a step back but still assisting if needed as a [employer] liaison would be assisting while at the assisted. This freelance copywriter transported papi to the [employer] per request. Papi reported she would like to go to the assisted and was agreeable to the rules. This freelance copywriter spoke with about the rules and not being able to have control over other's actions. papi reported that she would stay in her room with the window open. She spoke at length about seeing various famous people while living in [place]. Papi spoke at length about various non- traditional medical treatments she has tried in the past. Papi requested to be dropped off at [employer] and spoke at length about the differences in entrances at the mall. No acute safety concerns observed throughout interaction. Papi was forward thinking/future oriented. Papi did not have any unresolved questions. Diagnosis: homeless Time Spent: 1.30 hours Next Steps: -this freelance copywriter will connect with ANYA Campbell regarding admission to [facility] on /es/ Dora Banks LCSW [facility] Manager Marketing Sales Signed: 09/22/2023 13:09 /lisa/ KRYSTAL GRULLON Manager Marketing Sales Cosigned: 09/22/2023 13:53 09/22/2023 ADDENDUM STATUS: COMPLETED I have reviewed this case and concur with the clinical impressions and recommendations made by this COLLECTIONS AND ARCHIVES DIRECTOR clinician who is under my clinical supervision. /lisa/ KRYSTAL GRULLON Manager Marketing Sales Signed: 09/22/2023 13:54 DORA BANKS [facility]
--- OUTSIDE RECORDS SUMMARY | 2024-06-14 17:22 | XMS_ITS | Encounter Summary ---
Author Name [facility] [place] Address [address] [place] [address] Support Name Relationship Address Phone VLADIMIR OVIEDO Next of Kin [address] [address] [place] VLADIMIR OVIEDO Emergency Contact [address] [place] Selected Encounter This section includes the information on record at [place] for the Encounter. Date/Time Encounter Type Encounter Description Reason Provider Source Feb 20, 2024 07:59 PM CASE MANAGEMENT [facility] INDIV ICD-10-CM Z59.01 Sheltered homelessness GUADALUPE CORDOVA IHE Encounter Template Text not used by [place] Assessments - Encounter Diagnoses This section includes the primary and secondary diagnoses documented for the Encounter. Date/Time Primary/Secondary Diagnosis Diagnosis Name Provider Source May 18, 2024 08:03 PM PRIMARY Sheltered homelessness GUADALUPE CORDOVA [facility] Advance Directives: All historical and current Section Date Range: From patient's date of to the date document was created. This section includes ALL of a patient's completed or amended [place] Advance and Rescinded Directives. The entries below indicate that a directive exists for the patient, but an actual copy is not included with this document. The data comes from all [place] facilities. Date Advance Directives Provider Source August 12, 2023 ADVANCE DIRECTIVE DISCUSSION PATRIC DOWD Encounter Notes: All associated encounter notes This section contains the clinical notes associated to the Encounter. Date/Time Encounter Note(s) Provider Source Feb 19, 2024 08:02 PM HOMELESS PROGRAM N OTE: LOCAL TITLE: [facility] PROGRESS NOTE STANDARD TITLE: HOMELESS PROGRAM NOTE DATE OF NOTE: FEB 19, 2024@20:02 ENTRY DATE: MAY 18, 2024@20:02:29 AUTHOR: FRANCES CORDOVA EXP COSIGNER: URGENCY: STATUS: COMPLETED identified by (select two): Full Name, SSN Length of contact: 2 hours Case management stage:Intensive Diagnosis Addressed:homelessness Subject of call:(click one or more)Housing and wellness Description of contact:CPicked up and brought to view apartments on first floor.Assisted with other related tasks of everyday living / Notable changes in mental status:Oriented x3, insight and [employer] wnl, affect congruent to the content of call. no si/hi reported Any clinical indications of increased risk? No If yes, CSSRS was completed on this date Next Steps:Secure housing // KRYSTAL WILL [facility] ARTIFICIAL FLOWERS STARCHER Signed: 05/18/2024 20:03 FRANCES CORDOVA [place] [facility]
--- OUTSIDE RECORDS SUMMARY | 2024-06-14 17:22 | XMS_ITS | Encounter Summary ---
Author Name [facility] [place] Organization [place] Address [address] [place] [address] Support Name Relationship Address Phone VLADIMIR OVIEDO Next of Kin [address] [address] [place] VLADIMIR OVIEDO Emergency Contact [address] [place] Selected Encounter This section includes the information on record at [place] for the Encounter. Date/Time Encounter Type Encounter Description Reason Provider Source Mar 21, 2024 07:59 PM CASE MANAGEMENT [facility] INDIV ICD-10-CM Z59.01 Sheltered homelessness GUADALUPE CORDOVA IHE Encounter Template Text not used by [place] Assessments - Encounter Diagnoses This section includes the primary and secondary diagnoses documented for the Encounter. Date/Time Primary/Secondary Diagnosis Diagnosis Name Provider Source May 18, 2024 08:07 PM PRIMARY Sheltered homelessness GUADALUPE CORDOVA [facility] Advance Directives: All historical and current Section Date Range: From patient's date of to the date document was created. This section includes ALL of a patient's completed or amended [place] Advance and Rescinded Directives. The entries below indicate that a directive exists for the patient, but an actual copy is not included with this document. The data comes from all [place] facilities. Date Advance Directives Provider Source August 12, 2023 ADVANCE DIRECTIVE DISCUSSION PATRIC DOWD Encounter Notes: All associated encounter notes This section contains the clinical notes associated to the Encounter. Date/Time Encounter Note(s) Provider Source Mar 21, 2024 08:06 PM HOMELESS PROGRAM N OTE: LOCAL TITLE: [facility] PROGRESS NOTE STANDARD TITLE: HOMELESS PROGRAM NOTE DATE OF NOTE: MAR 21, 2024@20:06 ENTRY DATE: MAY 18, 2024@20:07:14 AUTHOR: FRANCES CORDOVA EXP COSIGNER: URGENCY: STATUS: COMPLETED identified by (select two): Full Name, SSN Length of contact: 2.5 hours Case management stage:Intensive Diagnosis Addressed:homelessness Subject [...] on this date Next Steps:Secure housing // FRANCES CORDOVA [employer] DEVELOPER [facility] PROOF PLATE MAKER Signed: 05/18/2024 20:08 FRANCES CORDOVA [place] [facility]
--- OUTSIDE RECORDS SUMMARY | 2024-06-14 17:22 | XMS_ITS | Encounter Summary ---
Author Name [facility] [place] Address [address] [place] [address] Support Name Relationship Address Phone VLADIMIR OVIEDO Next of Kin [address] [place] VLADIMIR OVIEDO Emergency Contact [address] [place] Selected Encounter This section includes the information on record at [place] for the Encounter. Date/Time Encounter Type Encounter Description Reason Provider Source Mar 22, 2024 06:59 PM HC PRO PHONE CALL 21-30 MIN HUD/VASH INDIV ICD-10-CM Z59.01 Sheltered homelessness GUADALUPE CORDOVA E Encounter Template Text not used by [place] Assessments - Encounter Diagnoses This section includes the primary and secondary diagnoses documented for the Encounter. Date/Time Primary/Secondary Diagnosis Diagnosis Name Provider Source May 18, 2024 07:22 PM PRIMARY Sheltered homelessness GUADALUPE CORDOVA [facility] Advance Directives: All historical and current Section Date Range: From patient's date of to the date document was created. This section includes ALL of a patient's completed or amended [place] Advance and Rescinded Directives. The entries below indicate that a directive exists for the patient, but an actual copy is not included with this document. The data comes from all [place] facilities. Date Advance Directives Provider Source August 12, 2023 ADVANCE DIRECTIVE DISCUSSION PATRIC DOWD Encounter Notes: All associated encounter notes This section contains the clinical notes associated to the Encounter. Date/Time Encounter Note(s) Provider Source Mar 22, 2024 07:20 PM HOMELESS PROGRAM TELEPHONE ENCOUNTER NOTE: LOCAL TITLE: ZIS-[id number] CONTACT STANDARD TITLE: HOMELESS PROGRAM TELEPHONE ENCOUNTER NOTE DATE OF NOTE: MAR 22, 2024@19:20 ENTRY DATE: MAY 18, 2024@19:20:49 AUTHOR: FRANCES CORDOVA EXP COSIGNER: URGENCY: STATUS: [...] date Next Steps:Secure housing /es/ KRYSTAL [facility] SANITATION TECHNICIAN Signed: 05/18/2024 19:22 FRANCES CORDOVA [place] [facility]
--- OUTSIDE RECORDS SUMMARY | 2024-06-14 17:22 | XMS_ITS | Encounter Summary ---
Author Name [facility] [place] Address [address] [place] [address] Support Name Relationship Address Phone VLADIMIR OVIEDO Next of Kin [address] [place] VLADIMIR OVIEDO Emergency Contact [address] [place] Selected Encounter This section includes the information on record at [place] for the Encounter. Date/Time Encounter Type Encounter Description Reason Provider Source Feb 07, 2024 01:41 PM SELF-HELP/PEER SVC PER 15MIN [facility] INDIV ICD-10-CM Z59.89 Other problems related to housing and economic circumstances ILIR POOLE Jovana Encounter Template Text not used by [place] Assessments - Encounter Diagnoses This section includes the primary and secondary diagnoses documented for the Encounter. Date/Time Primary/Secondary Diagnosis Diagnosis Name Provider Source Feb 13, 2024 02:53 PM PRIMARY Other problems related to housing and economic circumstances LEYLA POOLE BONDUEL Advance Directives: All historical and current Section Date Range: From patient's date of to the date document was created. This section includes ALL of a patient's completed or amended [place] Advance and Rescinded Directives. The entries below indicate that a directive exists for the patient, but an actual copy is not included with this document. The data comes from all [place] facilities. Date Advance Directives Provider Source August 12, 2023 ADVANCE DIRECTIVE DISCUSSION PATRIC DOWD BONDUEL Encounter Notes: All associated encounter notes This section contains the clinical notes associated to the Encounter. Date/Time Encounter Note(s) Provider Source Feb 07, 2024 01:42 PM MENTAL HEALTH SOCI AL WORKER NOTE: LOCAL TITLE: HUD-VAS PEER SUPPORT STANDARD TITLE: MENTAL HEALTH STATUE MAKER NOTE DATE OF NOTE: FEB 07, 2024@13:42 ENTRY DATE: FEB 07, 2024@13:46:42 AUTHOR: CHRIS POOLE EXP COSIGNER: URGENCY: STATUS: COMPLETED [place] identified by (select two): Full Name, Facial Recognition Location of visit: Community contact: Length of contact: 2hrs 30 minutes Purpose: Combat isolation/social support, Transportation , Housing readiness Description of contact: LITO Bibiana picks up the at her hotel. I drove her to her doctor's appointment at [place]. This time, the didn't want to talk much because she had left her hearing aid at the hotel and couldn't hear much of what t/w was saying, plus she had the back window open. Once at the doctor's office, she wanted to go by herself. After that, she asks t/w to take her to the [employer] to tow picker a book he had requested. Then, while traveling back to [place], the informed me about an apartment that [facility] had forwarded to her, so we drove to see where the apartment complex was, and once there, she said she didn't like the property because She is familiar with the facility and indicated that it was not safe for her. After that, we went to the [facility] apartments to acquire an application, which she signed so we could submit it and then schedule an appointment to see a one-bedroom apartment. Then we went to a motel where she intends to relocate because it is more convenient for her to get outdoors and go somewhere when the rooms are been clean. did have the opportunity to see the apartment without rugs, and she stated that she will return this evening to pay for the room after speaking with the manager track. T/w then drove her back to her hotel and she said she was thanful for the assistance today. Were there any safety concerns addressed? No If Yes, describe issue and actions taken: Were there any indications of increased risk for suicide (recent losses, medical diagnoses, mood changes, etc.) NO If yes please describe: *If yes, CSSRS must be completed and documented. If CSSRS positive, warm hand off to a clinician must occur same day. Next steps: Next scheduled contact: Planning to meet next Monday. SUPERVISION STATEMENT: Peer Support Apprentices/Specialists receive at minimum monthly supervision from an [facility] within the Homeless Program, during which time peer support services are discussed and reviewed. PROCEDURE: H0038 Self-help/Peer Support. /es/ CHRIS POOLE PLANT UTILITY PERSON Signed: 02/13/2024 14:53 Receipt Acknowledged By: 02/15/2024 10:45 /es/ FRANCES CORDOVA [facility] STATUE MAKER 02/14/2024 14:38 /es/ HEAVENLY Leiva, [facility] Industrial [employer] 02/15/2024 09:52 /es/ DELMA KO [facility] Sampler O[employer] CHRIS POOLE
--- OUTSIDE RECORDS SUMMARY | 2024-06-14 17:22 | XMS_ITS ---
Author Name [facility] [place] Organization [facility] [place] [facility] [place] Address [address] [place] [address] Support Name Relationship Address Phone VLADIMIR OVIEDO Next of Kin [address] [place] VLADIMIR OVIEDO Emergency Contact [address] [place] Selected Encounter This section includes the information on record at [place] for the Encounter. Date/Time Encounter Type Encounter Description Reason Provider Source Mar 14, 2024 06:59 PM HC PRO PHONE CALL 11-20 MIN HUD/VASH INDIV ICD-10-CM Z59.01 Sheltered homelessness GUADALUPE CORDOVA E Encounter Template Text not used by [place] Assessments - Encounter Diagnoses This section includes the primary and secondary diagnoses documented for the Encounter. Date/Time Primary/Secondary Diagnosis Diagnosis Name Provider Source May 18, 2024 07:19 PM PRIMARY Sheltered homelessness GUADALUPE CORDOVA [facility] Advance Directives: All historical and current Section Date Range: From patient's date of to the date document was created. This section includes ALL of a patient's completed or amended [place] Advance and Rescinded Directives. The entries below indicate that a directive exists for the patient, but an actual copy is not included with this document. The data comes from all [place] facilities. Date Advance Directives Provider Source August 12, 2023 ADVANCE DIRECTIVE DISCUSSION PATRIC DOWD Encounter Notes: All associated encounter notes This section contains the clinical notes associated to the Encounter. Date/Time Encounter Note(s) Provider Source Mar 15, 2024 07:17 PM HOMELESS PROGRAM TELEPHONE ENCOUNTER NOTE: LOCAL TITLE: [id number] CONTACT STANDARD TITLE: HOMELESS PROGRAM TELEPHONE ENCOUNTER NOTE DATE OF NOTE: MAR 15, 2024@19:17 ENTRY DATE: MAY 18, 2024@19:18:15 AUTHOR: FRANCES CORDOVA EXP COSIGNER: URGENCY: STATUS: [...] date Next Steps:Secure housing /es/ KRYSTAL [facility] MODEL MAKING SUPERVISOR Signed: 05/18/2024 19:19 FRANCES CORDOVA [place] [facility]
--- OUTSIDE RECORDS SUMMARY | 2024-06-14 17:22 | XMS_ITS | Data Portability ---
Author Organization [facility] [email or web address] edicine-, [employer] Address [address] [place] [address] Assessment No assessment recorded. Plan of Treatment Reminders Order Date Submit Date Provider Last Modified By Organization Details Last Modified Time Details Appointments None record ed. Lab None record ed. Referral None record ed. Procedures None record ed. Surgeries None record ed. Imaging None record ed. Medication Orders None record ed. Patient TargetsNo targets recorded. Patient InstructionsNo instructions recorded. Reason for Referral None Reported. Medical Equipment None Reported. Medications Name Sig Start Date Stop Date Status Note LastModified by Organization Details LastModified Time triamcinolone acetonide 0.5 % topical cream active Not Available Not Availabl e Not Available ciprofloxacin 500 mg tablet active Not Available Not Availabl e Not Available naproxen 500 mg tablet active Not Available Not Available Not Available Vitals None Recorded Social History None recorded. Functional Status None recorded. Mental Status None recorded. Family History Nothing Reported. Medical History No medical history recorded. Gynecological HistoryNo gynecological history recorded. Obstetrics History GPAL:G 0 P 0 0 0 0 Past Encounters Encounter ID Performer Location Encounter Start Date Encounter Closed Date Diagnosis/Indication Diagnosis SNOMED-CT Code Diagnosis ICD10 Code Diagnosis Note [id number] Christian Maldonado MD [facility] [address] [place] [address] 06/01/2016 13:36:13 06/01/2016 15:56:29 Health Concerns Section Related Observation LastModified by Organization Detai ls LastModified Time None Recorded Concern Status LastModified by Organization Details LastModified Time None Recorded Advance Directives Directive None Recorded Payers Encounter Date Sequence Insurance Name Policy Number Policy Mayer Covered Member ID Mayer Member ID Guarantor Name 06/01/2016 1 [place] [employer] Zuleima Carbajal [id number] Zuleima Carbajal 06/01/2016 2 [place] [facility] Zuleima Carbajal [id number] Zuleima Carbajal OBGyn Episode No OBEpisode recorded.
--- OUTSIDE RECORDS SUMMARY | 2024-06-14 17:22 | XMS_ITS | Data Portability ---
Author Organization [facility], , [facility] Address [address] [place] [address] Assessment Encounter Date Assessment Date Assessment LastModified by Organization Details LastModified Time 01/05/2009 01/05/2009 Continues with right shoulder pain; one more visit then return to referring physician Not available 11/08/2010 02:54:21 01/08/2009 01/08/2009 Reviewed HEP.? ? ? Zuleima continues with pain @ 90 degrees right shoulder flexion and abduction.? ? ? Also note possible slight atrophy right infraspinatus .? ? ? Recommend return to Dr. Mendieta for reevaluation. ? ? ? Discharge Not available 12/22/2010 02:20:13 03/16/2009 03/16/2009 Assessment: L knee pain Patient Goals: Patient wants to be pain free and expressed the desire to return to the stepper machine and running Clinical Goals: Treatment Plan: Patient to return times per week for weeks. Treatment to Include: No treatment is planned,? ? ?Zuleima has expressed a desire to return to the gym and was advised to only do what does not cause pain.? ? ? physical Therapy does not appear medically necessary due to Zuleima's high level of function. Not available 12/22/2010 02:21:02 07/20/2017 07/20/2017 Left foot pain jerskine Not available 07/20/2017 14:55:42 08/30/2017 08/30/2017 Left foot pain jerskine Not available 08/30/2017 16:03:29 Plan of Treatment Reminders Order Date Submit Date Provider Last Modified By Organization Details Last Modified Time Details Appointments None record ed. Lab None record ed. Referral None record ed. Procedures None record ed. Surgeries None record ed. Imaging None record ed. Medication Orders None record ed. Patient TargetsNo targets recorded. Patient Instructions Encounter Date Encounter Id Patient Instructions Last Modified By Organization Details Last Modified Time 07/20/2017 [id number] Patient to try insert with temporary dispersion padding and return if symptoms persist. jerskine Not available 07/20/2017 14:56:01 08/30/2017 [id number] Patient to acquire orthotics with dispersion left foot. jerskine Not available 08/30/2017 16:05:05 Reason for Referral None Reported. Problems No Known Problems Procedures Surgical History Date Name Laterality Status Provider Name and Address Organization Details Recorded Time 9 Treatment and Advice completed Arley Dorsey, PT [address] [place], [address], [facility] 10/01/2008 12:42:58 9 Treatment and Advice completed Arley Dorsey, PT [address] [place], [address], [facility] 09/11/2008 13:30:29 9 Treatment and Advice completed Arley Dorsey PT [address] [place], [address], [facility] 08/28/2008 12:54:21 9 Treatment and Advice completed Yola Larson, OT [address] [place], [address], [facility] 08/28/2008 12:26:12 9 Treatment and Advice completed Arley Dorsey PT [address] [place], [address], [facility] 08/13/2008 14:16:29 9 Treatment and Advice completed Arley Dorsey PT [address] [place], [address], [facility] 08/05/2008 14:15:37 9 Treatment and Advice completed Yola Larson, OT [address] [place], [address], [facility] 07/29/2008 09:26:50 9 Treatment and Advice completed Arley Dorsey PT [address] [place], [address] [place] [address] 07/25/2008 16:59:25 Imaging Results None recorded. Procedure Notes None recorded. Medical Equipment None Reported. Allergies Allergen ID Allergen Name Allergen Category Reaction Reaction Severity Criticality Documentation Date Start Date Code Code System Note Provider Name and Address Organization Details Recorded Time 20370416 latex environme nt,medica tion rash moderate Not available 07/20/2017 09195 91 [facility] 8 14:11:37 20370417 Product containin g penicilli n (product) medicatio n Not available Not available Not available 07/20/2017 78533 8001 SNOMED Nabila Brown [place] [facility] 8 14:12:06 Medications Not known to be on any medication Vitals Date Recorded Systolic blood pressure Diastolic blood pressure Provider Name and Address Organization Details Last Updated DateTime 07/20/2017 106 mm[Hg] 60 mm[Hg] Nabila Brown MA [facility] 07/20/2017 14:14:26 Date Recorded Systolic blood pressure Diastolic blood pressure Provider Name and Address Organization Details Last Updated DateTime 08/30/2017 100 mm[Hg] 62 mm[Hg] Nabila Brown MA [facility] 08/30/2017 15:46:12 Social History None recorded. Functional Status None recorded. Mental Status None recorded. Family History Nothing Reported. Medical History No medical history recorded. Gynecological HistoryNo gynecological history recorded. Obstetrics History GPAL:G 0 P 0 0 0 0 Past Encounters Encounter ID Performer Location Encounter Start Date Encounter Closed Date Diagnosis/Indication Diagnosis SNOMED-CT Code Diagnosis ICD10 Code Diagnosis Note [id number] Physical Therapy, [address] [place] [address] 08/15/2006 11:34:25 08/15/2006 11:38:32 [id number] Physical Therapy, [address] [place] [address] 08/22/2006 09:59:27 08/22/2006 09:59:30 [id number] Physical Therapy, [address] [place] [address] 08/29/2006 08:38:10 08/29/2006 08:38:27 [id number] Physical Therapy, [address] [place] [address] 09/06/2006 09:07:08 09/06/2006 09:07:12 [id number] [place], [facility] [place] [address] 09/12/2006 11:16:42 09/12/2006 11:16:45 [id number] Physical Therapy, [facility] [place] [address] 09/19/2006 11:13:34 09/19/2006 11:13:39 [id number] Physical Therapy, [facility] [place] [address] 10/06/2006 10:36:28 10/06/2006 10:36:34 [id number] Physical Therapy, [facility] [place] [address] 10/13/2006 10:57:49 10/13/2006 10:57:52 [id number] Physical Therapy, [facility] [place] [address] 10/23/2006 11:31:08 10/23/2006 11:31:16 [id number] Physical Therapy, [facility] [place] [address] 10/30/2006 11:01:32 10/30/2006 11:01:40 [id number] Physical Therapy, [facility] [place] [address] 11/14/2006 10:54:11 11/14/2006 16:24:35 [id number] Physical Therapy, [facility] [place] [address] 11/20/2006 11:56:45 11/20/2006 11:59:04 [id number] Physical Therapy, [facility] [place] [address] 11/28/2006 10:47:15 11/28/2006 10:47:22 [id number] Physical Therapy, [facility] [place] [address] 12/12/2006 10:33:28 12/13/2006 08:46:24 [id number] Physical Therapy, [facility] [place] [address] 05/29/2007 11:05:18 05/29/2007 11:05:22 [id number] Physical Therapy, [facility] [place] [address] 06/13/2007 11:19:01 06/13/2007 11:19:05 [id number] Physical Therapy, [facility] [place] [address] 06/21/2007 11:14:16 06/21/2007 11:14:20 [id number] Physical Therapy, [facility] [place] [address] 07/09/2007 10:59:51 07/09/2007 11:01:15 [id number] Physical Therapy, [facility] [place] [address] 07/17/2008 08:04:13 07/17/2008 08:08:36 [id number] Physical Therapy, [facility] [place] [address] 07/14/2008 16:10:47 07/14/2008 16:10:52 [id number] Physical Therapy, [facility] [place] [address] 07/21/2008 12:02:14 07/21/2008 15:50:41 [id number] Physical Therapy, [facility] [place] [address] 07/25/2008 15:20:29 07/29/2008 09:04:34 [id number] Physical Therapy, [facility] [place] [address] 07/29/2008 09:02:56 08/01/2008 09:41:29 [id number] Physical Therapy, [facility] [place] [address] 08/05/2008 13:06:38 08/05/2008 16:25:05 [id number] Physical Therapy, [facility] [place] [address] 08/06/2008 12:05:13 08/07/2008 10:59:31 [id number] Physical Therapy, [facility] [place] [address] 08/13/2008 13:47:31 08/14/2008 10:07:16 [id number] Physical Therapy, [facility] [place] [address] 08/20/2008 12:33:13 08/21/2008 09:12:53 [id number] Physical Therapy, [facility] [place] [address] 08/28/2008 11:36:58 08/29/2008 08:29:16 [id number] Physical Therapy, [facility] [place] [address] 08/28/2008 12:10:28 08/29/2008 08:43:56 [id number] Physical Therapy, [facility] [place] [address] 09/04/2008 11:03:33 09/08/2008 13:27:34 [id number] Physical Therapy, [facility] [place] [address] 09/08/2008 09:34:52 09/10/2008 08:28:07 [id number] Physical Therapy, [facility] [place] [address] 09/11/2008 12:33:40 09/12/2008 12:18:49 [id number] Physical Therapy, [facility] [place] [address] 09/17/2008 12:31:40 09/17/2008 15:28:33 [id number] Physical Therapy, [facility] [place] [address] 09/24/2008 14:09:30 09/25/2008 09:43:28 [id number] Physical Therapy, [facility] [place] [address] 10/01/2008 10:42:45 10/02/2008 15:33:00 [id number] Physical Therapy, [facility] [place] [address] 10/09/2008 10:29:18 10/13/2008 08:37:42 [id number] Physical Therapy, [facility] [place] [address] 10/09/2008 10:55:32 10/09/2008 17:01:27 [id number] Physical Therapy, [facility] [place] [address] 11/11/2008 11:17:44 11/17/2008 10:21:18 [id number] Physical Therapy, [facility] [place] [address] 11/12/2008 09:40:20 11/18/2008 12:32:02 [id number] Physical Therapy, [facility] [place] [address] 11/24/2008 16:09:28 11/25/2008 11:39:23 [id number] Physical Therapy, [facility] [place] [address] 11/27/2008 09:03:25 11/27/2008 13:40:57 [id number] Physical Therapy, [facility] [place] [address] 12/01/2008 09:11:14 12/02/2008 10:13:21 [id number] Physical Therapy, [facility] [place] [address] 12/04/2008 09:02:36 12/05/2008 08:21:14 [id number] Physical Therapy, [facility] [place] [address] 12/08/2008 09:41:49 12/09/2008 10:46:59 [id number] Physical Therapy, [facility] [place] [address] 12/10/2008 09:25:22 12/17/2008 14:15:51 [id number] Physical Therapy, [facility] [place] [address] 12/11/2008 10:05:44 12/18/2008 08:19:58 [id number] Physical Therapy, [facility] [place] [address] 12/16/2008 09:33:02 12/17/2008 09:11:47 [id number] Physical Therapy, [facility] [place] [address] 12/17/2008 09:06:31 12/18/2008 11:20:55 [id number] Physical Therapy, [facility] [place] [address] 12/18/2008 09:01:24 12/19/2008 09:17:26 [id number] Physical Therapy, [facility] [place] [address] 12/22/2008 16:15:52 12/23/2008 09:18:40 [id number] Physical Therapy, [facility] [place] [address] 12/24/2008 16:02:23 12/25/2008 10:06:34 [id number] Physical Therapy, [facility] [place] [address] 12/25/2008 08:06:39 12/25/2008 15:29:35 [id number] Physical Therapy, [facility] [place] [address] 12/29/2008 09:09:53 12/29/2008 16:14:28 [id number] Physical Therapy, [facility] [place] [address] 12/30/2008 09:17:54 2008 08:02:51 [id number] Physical Therapy, [facility] [place] [address] 2008 16:24:31 01/01/2009 11:12:32 [id number] Physical Therapy, [facility] [place] [facility] [place] [address] 01/05/2009 16:05:23 01/06/2009 11:20:29 [id number] Physical Therapy, [facility] [place] [address] 01/08/2009 09:48:05 01/09/2009 09:10:10 [id number] Physical Therapy, [facility] [place] [address] 07/09/2008 11:02:17 07/09/2008 11:02:23 [id number] Physical Therapy, [facility] [place] [address] 03/16/2009 13:41:57 03/17/2009 11:11:04 [id number] Arley Oden DPM Podiatry, [facility] [address] [place] [address] 07/20/2017 14:02:11 07/21/2017 10:37:41 Pain in left foot [id number] M79.560 [id number] Arley Oden DPM Podiatry, [address] [address] 08/30/2017 15:18:33 08/30/2017 16:21:51 Pain in left foot [id number] 51785 M79.672 Health Concerns Section Related Observation LastModified by Organization Detai ls LastModified Time None Recorded Concern Status LastModified by Organization Details LastModified Time None Recorded Advance Directives Directive None Recorded Payers Encounter Date Sequence Insurance Name Policy Number Policy Mayer Covered Member ID Mayer Member ID Guarantor Name 01/05/2009 2 [place] Zuleima Carbajal [id number] Zuleima Carbajal 01/08/2009 2 [place] Zuleima Carbajal [id number] Zuleima Carbajal 03/16/2009 2 [place] Zuleima Carbajal [id number] Zuleima Carbajal 03/16/2009 1 [place] [employer] Zuleima Carbajal [id number] Zuleima Campa Solomon 07/20/2017 2 [place] Zuleima Campa Solomon [id number] Zuleima Campa Solomon 07/20/2017 1 [place] [employer] Zuleima Campa Solomon [id number] Zuleima Campa Solomon 08/30/2017 2 [place] [facility] Zuleima Campa Solomon [id number] Zuleima Campa Solomon 08/30/2017 1 [place] [facility] Zuleima Campa Solomon [id number] Zuleima Campa Solomon Notes Date Note Type Note Provider Name and Address Organization Details Recorded Time 01/05/2009 text/html InitializeSectio n( this.parentNode, 1 ); this.removeNode(colton e)HPI Shoulder is @ the same? Yola Larson, OT [address] [place], [address], [facility] 01/05/2009 17:22:30 01/08/2009 text/html InitializeSectio n( this.parentNode, 1 ); this.removeNode(colton e)HPI Shoulder is the same? Yola Larson, OT [address] [place], [address], [facility] 01/08/2009 19:38:03 03/16/2009 text/html InitializeSectio n( this.parentNode, 1 ); this.removeNode(colton e)HPI Zuleima was referred for left knee pain that she feels came on after injuring the right knee. She feeld the left knee had taken on more stress due to the right knee injury.? Arley Dorsey, PT [address] [place], [address], [facility] 03/16/2009 15:33:37 07/20/2017 text/html Patient presents to the office complaining of pain under the bottom of her left foot. Patient states she has been experiencing increasing pain for several months increasing difficulty when walking. Patient chooses prefabricated shoe inserts which provided some relief, but symptoms persist. Patient without complaints of swelling or discoloration. Arley Oden DPM [address] [place], [address], [facility] 07/20/2017 14:56:34 08/30/2017 text/html Patient presents to the office complaining of return of pain under the bottom of her left foot.Patient states she felt significant improvement with application of padding in the insert of her left shoe, but padding has since worn down. Patient without complaints of swelling or discoloration. Arley Oden DPM [address] [place], [address], [facility] 08/30/2017 16:05:20 OBGyn Episode No OBEpisode recorded.
--- OUTSIDE RECORDS SUMMARY | 2024-06-14 17:22 | XMS_ITS ---
Author Name [facility] [place] [facility] [place] Organization [facility] [place] [facility] [place] Address [address] [place] [address] Support Name Relationship Address Phone VLADIMIR OVIEDO Next of Kin [address] [address] [place] VLADIMIR OVIEDO Emergency Contact [address] [place] Selected Encounter This section includes the information on record at [place] for the Encounter. Date/Time Encounter Type Encounter Description Reason Pro vider Source May 28, 2024 02:30 PM Outpatient Encounter TELEPHONE/[facility] Encounter Template Text not used by [place] Advance Directives: All historical and current Section Date Range: From patient's date of to the date document was created. This section includes ALL of a patient's completed or amended [place] Advance and Rescinded Directives. The entries below indicate that a directive exists for the patient, but an actual copy is not included with this document. The data comes from all [place] facilities. Date Advance Directives Provider Source August 12, 2023 ADVANCE DIRECTIVE DISCUSSION PATRIC DOWD Encounter Notes: All associated encounter notes This section contains the clinical notes associated to the Encounter. Date/Time Encounter Note(s) Provider Source May 28, 2024 02:30 PM HOMELESS PROGRAM T ELEPHONE ENCOUNTER NOTE: LOCAL TITLE: [id number] CONTACT STANDARD TITLE: HOMELESS PROGRAM TELEPHONE ENCOUNTER NOTE DATE OF NOTE: MAY 28, 2024@14:30 ENTRY DATE: MAY 30, 2024@08:27:57 AUTHOR: IRINA GRANT COSIGNER: URGENCY: STATUS: COMPLETED CLICK HERE TO BEGIN Attempted telephone contact to [facility] (CHECK ONE) Unable to leave a voicemail (VM box not set up or full) TW call to confirm today meeting. No answer, no VM option. TW will continue efforts to meet with the [facility]. /es/ RENEE OLIVARES Pest Control Technician Signed: 05/30/2024 08:28 Receipt Acknowledged By: 05/30/2024 15:40 /lisa/ DELMA OLIVARES Gse Mechanic RENEE GRANTFIELD
--- OUTSIDE RECORDS SUMMARY | 2024-06-14 17:22 | XMS_ITS | Encounter Summary ---
Author Name [facility] [place] Organization [facility] [place] Address [address] [place] [id number] Support Name Relationship Address Phone VLADIMIR OVIEDO Next of Kin [address] [address]Jul[place]te [place] VLADIMIR OVIEDO Emergency Contact [address] [place] Selected Encounter This section includes the information on record at [place] for the Encounter. Date/Time Encounter Type Encounter Description Reason Provider Source Apr 05, 2024 07:59 PM CASE MANAGEMENT [facility] INDIV ICD-10-CM Z59.01 Sheltered homelessness GUADALUPE CORDOVA IHE Encounter Template Text not used by [place] Assessments - Encounter Diagnoses This section includes the primary and secondary diagnoses documented for the Encounter. Date/Time Primary/Secondary Diagnosis Diagnosis Name Provider Source May 18, 2024 08:14 PM PRIMARY Sheltered homelessness GUADALUPE CORDOVA [facility] Advance Directives: All historical and current Section Date Range: From patient's date of to the date document was created. This section includes ALL of a patient's completed or amended [place] Advance and Rescinded Directives. The entries below indicate that a directive exists for the patient, but an actual copy is not included with this document. The data comes from all [place] facilities. Date Advance Directives Provider Source August 12, 2023 ADVANCE DIRECTIVE DISCUSSION PATRIC DOWD Encounter Notes: All associated encounter notes This section contains the clinical notes associated to the Encounter. Date/Time Encounter Note(s) Provider Source Apr 05, 2024 08:13 PM HOMELESS PROGRAM N OTE: LOCAL TITLE: 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
--- OUTSIDE RECORDS SUMMARY | 2024-06-14 17:22 | XMS_ITS ---
Author Name [facility] [place] [facility] [place] Address [address] [place] [id number] Support Name Relationship Address Phone VLADIMIR OVIEDO Next of Kin [address] [place] VLADIMIR OVIEDO Emergency Contact [address] [place] Selected Encounter This section includes the information on record at [place] for the Encounter. Date/Time Encounter Type Encounter Description Reason Provider Source Feb 23, 2024 06:59 PM HC PRO PHONE CALL 11-20 MIN [facility] INDIV ICD-10-CM Z59.01 Sheltered homelessness GUADALUPE CORDOVA E Encounter Template Text not used by [place] Assessments - Encounter Diagnoses This section includes the primary and secondary diagnoses documented for the Encounter. Date/Time Primary/Secondary Diagnosis Diagnosis Name Provider Source May 18, 2024 07:14 PM PRIMARY Sheltered homelessness GUADALUPE CORDOVA [facility] Advance Directives: All historical and current [...] Encounter. Date/Time Encounter Note(s) Provider Source Feb 23, 2024 07:08 PM HOMELESS PROGRAM TELEPHONE ENCOUNTER NOTE: LOCAL TITLE: [id number] CONTACT STANDARD TITLE: HOMELESS PROGRAM TELEPHONE ENCOUNTER NOTE DATE OF NOTE: FEB 23, 2024@19:08 ENTRY DATE: MAY 18, 2024@19:12:13 AUTHOR: FRANCES CORDOVA EXP COSIGNER: URGENCY: STATUS: COMPLETED Telephone contact with identified by (select two): Full Name, SSN Length of contact:25 minutes Case management stage:Intensive Diagnosis Addressed:homelessness Subject of call:(click one or more)Housing and wellness Description of contact:Checked in with who calls each day of the week regarding housing and overall coping and wellness. Offered support and assistance. Notable changes in mental status:Oriented x3, insight and [employer] wnl, affect congruent to the content of call. no si/hi reported Any clinical indications of increased risk? 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
--- OUTSIDE RECORDS SUMMARY | 2024-06-14 17:22 | XMS_ITS | Encounter Summary ---
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 [place] depends much from his friend who assist her Active Outpatient Medications (including Supplies): No Medications Found Current amount and source(s) of income: $1,000 SSI/SSP $ SSP 30.00 ___ UPDATED PSYHOSOCIAL: For complete historical information, PLEASE SEE UNIFORM INTAKE DATED: Jul Substance Use/Treatment: Per Uniform dater from 07/19/2023 endorsed utilizing alcohol- last drink 5 years ago, before that another 5 years, cannabis- last use two years ago, I had a friend from smoking weed and cocaine 1x in the past- didn't like it . [place] denied use of any other substances. denied any past or present concerns with any substances. Denies ever attending NA/AA or receiving professional treatment that was substance use related. Mental Health: Per uniform dated from 07/19/2023 Emanuel reported she was diagnosed with bi-polar disorder and was recommended to take lithium in 1983. I didn't want to take it, they were trying to rehab me . Emanuel did not report any additional psychiatric medications. Medical: Per uniform dated from 07/19/2023 knees, go to PT regularly right hand- OT can complete daily ADL's independently is mobile, has a walker for assistance with mobility. can walk short distances without it Legal Issues: No Legal issues Education/Training/Employment : Per uniform dated from 07/19/2023: Emanuel has three years worth of credits towards and has expressed the desire to continue her education. She has been linked with educational resources. Emanuel reported working at a [employer], [employer], and [employer] prior to enlisting at 33 years old. Unable to recall roughly when she stopped working, estimated 50-60 years old. in [place], [place]. Current Mental Status: Emanuel was oriented in time, space and person. No suicidal or homicidal ideation were reported. Emanuel is a sweet elderly woman, kind of innocent with a happy and young spirit. Emanuel has a close friend with her during the visit who assist her in different level an know all her medical, mental and housing history. include him in every conversation asking direct questions to him to confirm the information provided to SW. During the visit got distracted and sidetrack by other activities that she needed to do outside the clinic. Remembering things that needed to do. Wanted to make the phone work which did not had any service. Active Outpatient Medications (including Supplies): No Medications Found Risk Assessment (C-SSRS) has been completed: Yes IF SAFETY RISK HAS BEEN IDENTIFIED: Safety plan completed/copy provided to : N/A Suicide Manager Acquisition alerted: Yes If NO to any of the above, what is the reason? Advance Directive on file: No Is interested in completing Advance Directive? No Mental Health Advance Directive on file: No Is interested in completing Mental Health Advance Directive? No Release of Information obtained for outside providers: Yes Acuity Screenin PLAN: [place] will be placed in the [facility] interest pool. Upon acceptance into the program [place] will be referred to the Brush Holder Assembler team for housing readiness assessment and assistance. /es/ [facility] Signed: 08/12/2023 14:51 Receipt Acknowledged By: 08/14/2023 17:27 /es/ HEAVENLY Leiva, [facility] Toby Maker 08/12/2023 ADDENDUM STATUS: COMPLETED Jayshree of this note should have been NOT ELIGIBLE [facility] SCREENING /es/ [facility] Signed: 08/12/2023 14:52 08/16/2023 ADDENDUM STATUS: COMPLETED Waiting for eligibility to confirm if [place] is eligible for [facility]. /es/ [facility] Signed: 08/16/2023 12:43 PATRIC SANFORD
--- OUTSIDE RECORDS SUMMARY | 2024-06-14 17:22 | XMS_ITS ---
Author Name [facility] [place] Address [address] [place] [address] Support Name Relationship Address Phone VLADIMIR OVIEDO Next of Kin [address] [address] GRACIA CARRERA VLADIMIR OVIEDO Emergency Contact [address] [address] GRACIA CARRERA Selected Encounter This section includes the information on record at [place] for the Encounter. Date/Time Encounter Type Encounter Description Reason Provider Source Apr 12, 2024 06:59 PM PH1 ASSMT&MGMT NQ 21- [facility]/VASH INDIV ICD-10-CM Z59.01 Sheltered homelessness GUADALUPE CORDOVA E Encounter Template Text not used by [place] Assessments - Encounter Diagnoses This section includes the primary and secondary diagnoses documented for the Encounter. Date/Time Primary/Secondary Diagnosis Diagnosis Name Provider Source May 18, 2024 07:27 PM PRIMARY Sheltered homelessness GUADALUPE CORDOVA [facility] Advance Directives: All historical and current Section Date Range: From patient's date of to the date document was created. This section includes ALL of a patient's completed or amended [place] Advance and Rescinded Directives. The entries below indicate that a directive exists for the patient, but an actual copy is not included with this document. The data comes from all [place] facilities. Date Advance Directives Provider Source August 12, 2023 ADVANCE DIRECTIVE DISCUSSION PATRIC DOWD Encounter Notes: All associated encounter notes This section contains the clinical notes associated to the Encounter. Date/Time Encounter Note(s) Provider Source Apr 12, 2024 07:24 PM HOMELESS PROGRAM TELEPHONE ENCOUNTER NOTE: LOCAL TITLE: [id number] CONTACT STANDARD TITLE: HOMELESS PROGRAM TELEPHONE ENCOUNTER NOTE DATE OF NOTE: APR 12, 2024@19:24 ENTRY DATE: MAY 18, 2024@19:25:10 AUTHOR: FRANCES CORDOVA EXP COSIGNER: URGENCY: STATUS: COMPLETED Telephone contact with Logan identified by (select two): Full Name, SSN Length of contact:15 minutes Case management stage:Intensive Diagnosis Addressed:homelessness Subject of call:(click one or more)Housing and wellness Description of contact: A couple calls regarding furniture and desire for exchange. Collaborated with [facility] worker fro exchange and delivery . reported to be doing well otherwise. Notable changes in mental status:Oriented x3, insight and judgemnet wnl, affect congruent to the content of call. no si/hi reported Any clinical indications of increased risk? No If yes, CSSRS was completed on this date Next Steps:Secure furniture /es/ KRYSTAL [facility] MATH AND SCIENCE INSTRUCTOR Signed: 05/18/2024 19:27 FRANCES CORDOVA [place] [facility]
--- OUTSIDE RECORDS SUMMARY | 2024-06-14 17:22 | XMS_ITS | Encounter Summary ---
Author Name [place] Address [address] [place] [address] Support Name Relationship Address Phone VLADIMIR OVIEDO Next of Kin [address] [address]Juliette [place]ARR[place] VLADIMIR OVIEDO Emergency Contact [address] [place] Selected Encounter This section includes the information on record at [place] for the Encounter. Date/Time Encounter Type Encounter Description Reason Provider Source Feb 06, 2024 07:59 PM CASE MANAGEMENT [facility] INDIV ICD-10-CM Z59.01 Sheltered homelessness GUADALUPE CORDOVA IHE Encounter Template Text not used by [place] Assessments - Encounter Diagnoses This section includes the primary and secondary diagnoses documented for the Encounter. Date/Time Primary/Secondary Diagnosis Diagnosis Name Provider Source May 18, 2024 08:01 PM PRIMARY Sheltered homelessness GUADALUPE CORDOVA [facility] Advance Directives: All historical and current Section Date Range: From patient's date of to the date document was created. This section includes ALL of a patient's completed or amended [place] Advance and Rescinded Directives. The entries below indicate that a directive exists for the patient, but an actual copy is not included with this document. The data comes from all [place] facilities. Date Advance Directives Provider Source August 12, 2023 ADVANCE DIRECTIVE DISCUSSION PATRIC DOWD Encounter Notes: All associated encounter notes This section contains the clinical notes associated to the Encounter. Date/Time Encounter Note(s) Provider Source Feb 06, 2024 08:00 PM HOMELESS PROGRAM N OTE: LOCAL TITLE: [facility] PROGRESS NOTE STANDARD TITLE: HOMELESS PROGRAM NOTE DATE OF NOTE: FEB 06, 2024@20:00 ENTRY DATE: MAY 18, 2024@20:00:32 AUTHOR: FRANCES CORDOVA EXP COSIGNER: URGENCY: STATUS: COMPLETED identified by (select two): Full Name, SSN Length of contact: 1.5 hours Case management stage:Intensive Diagnosis Addressed:homelessness Subject [...] date Next Steps:Secure housing // FRANCES CORDOVA [facility] GRINDER SET UP OPERATOR SURFACE Signed: 05/18/2024 20:01 FRANCES CORDOVA [place] [facility]TR[facility]
--- OUTSIDE RECORDS SUMMARY | 2024-06-14 17:22 | XMS_ITS | Encounter Summary ---
Author Name Department of [place] Organization [place] Address [address] [place] [address] Support Name Relationship Address Phone VLADIMIR OVIEDO Next of Kin [address] [address]Juliette [place]ARR[place] VLADIMIR OVIEDO Emergency Contact [address] [place] Selected Encounter This section includes the information on record at [place] for the Encounter. Date/Time Encounter Type Encounter Description Reason Provider Source Apr 01, 2024 07:59 PM CASE MANAGEMENT [facility] INDIV ICD-10-CM Z59.01 Sheltered homelessness GUADALUPE CORDOVA IHE Encounter Template Text not used by [place] Assessments - Encounter Diagnoses This section includes the primary and secondary diagnoses documented for the Encounter. Date/Time Primary/Secondary Diagnosis Diagnosis Name Provider Source May 18, 2024 08:10 PM PRIMARY Sheltered homelessness GUADALUPE CORDOVA [facility] Advance Directives: All historical and current Section Date Range: From patient's date of to the date document was created. This section includes ALL of a patient's completed or amended [place] Advance and Rescinded Directives. The entries below indicate that a directive exists for the patient, but an actual copy is not included with this document. The data comes from all [place] facilities. Date Advance Directives Provider Source August 12, 2023 ADVANCE DIRECTIVE DISCUSSION PATRIC DOWD Encounter Notes: All associated encounter notes This section contains the clinical notes associated to the Encounter. Date/Time Encounter Note(s) Provider Source Apr 01, 2024 08:08 PM HOMELESS PROGRAM N OTE: LOCAL TITLE: [facility] PROGRESS NOTE STANDARD TITLE: HOMELESS PROGRAM NOTE DATE OF NOTE: APR 01, 2024@20:08 ENTRY DATE: MAY 18, 2024@20:08:45 AUTHOR: FRANCES CORDOVA EXP COSIGNER: URGENCY: STATUS: COMPLETED identified by (select two): Full Name, SSN Length of contact: 1.6 hours Case management stage:Intensive Diagnosis Addressed:homelessness Subject of call:(click one or more)Housing and wellness Description of contact:Picked up and brought to complete taska Notable changes in mental status:Oriented x3, insight and judgemnet wnl, affect congruent to the content of call. no si/hi reported Any clinical indications of increased risk? No If yes, CSSRS was completed on this date Next Steps:Secure housing /es/ KRYSTAL [facility] BALLISTICS EXPERT FORENSIC Signed: 05/18/2024 20:10 FRANCES CORDOVA [place] CNTRL [facility]
--- OUTSIDE RECORDS SUMMARY | 2024-06-14 17:22 | XMS_ITS | Encounter Summary ---
Author Name [place] Address [address] [place] [id number] Support Name Relationship Address Phone VLADIMIR OVIEDO Next of Kin [address] [place] VLADIMIR OVIEDO Emergency Contact [address] [place] Selected Encounter This section includes the information on record at [place] for the Encounter. Date/Time Encounter Type Encounter Description Reason Provider Source August 30, 2023 03:45 PM PT EDUCATION NOC INDIVID [facility]CMI INDIV ICD-10-CM Z59.01 [facility]ANK[facility] IHE Encounter Template Text not used by [place] Assessments - Encounter Diagnoses This section includes the primary and secondary diagnoses documented for the Encounter. Date/Time Primary/Secondary Diagnosis Diagnosis Name Provider Source September 01, 2023 11:12 AM [facility]IMARY [facility] DARIANAJUANARUN Fu [facility] Advance Directives: All historical and current [...] Encounter. Date/Time Encounter Note(s) Provider Source August 30, 2023 03:45 PM HOMELESS PROGRAM N OTE: LOCAL TITLE: HOMELESS OUTREACH STANDARD TITLE: HOMELESS PROGRAM NOTE DATE OF NOTE: AUGUST 30, 2023@15:45 ENTRY DATE: AUGUST 30, 2023@15:45:44 AUTHOR: ARUN BANKS COSIGNER: RADHA ABDI URGENCY: STATUS: COMPLETED HOMELESS OUTREACH Has ADDENDA met with Shannan Jovel- [facility], and this expert medical writer at [employer] per request. was identified by full name and facial recognition. Shannan assisted with recertification paperwork. Shannan and this expert medical writer presented various options including soldier on and local shelters as Vladimir reported that he is struggling to afford continuing to pay for the hotel. Patton had a raised voice while speaking of [facility], I'm scared to and denied another referral as she is not allowed upstairs to see the rooms. was not receptive to pictures or the description of the rooms, i do a smell check, don't want to be poisoned . This expert medical writer went over the [facility] voucher paperwork and process several times and clarified in depth. Shannan explained that after previously declined the studio unit, it was offered to another and she will inquire further. This expert medical writer went over [facility] voucher paperwork. Patton reported she intends to stay in the motel in the interim. Vladimir agreed to do whatever she wants to do is agreeable to continue to pay. showed this expert medical writer an email that was sent to her of her name in a newspaper article. This expert medical writer expressed concern for opening links that look suspicious. Patton provided contact information for an unit in [place], Shannan will follow up. No acute safety concerns observed throughout interaction. did not have any unresolved questions upon conclusion of appointment. Diagnosis: homeless Time Spent: 25mins Next Steps: - this expert medical writer will assist with submitting [facility] paperwork - Shannan will follow up on [facility] /lisa/ Arun Banks LCSW [facility] Tap Grinder Signed: 09/01/2023 11:12 /lisa/ KRYSTAL GRULLON Tap Grinder Cosigned: 09/01/2023 12:12 09/01/2023 ADDENDUM STATUS: COMPLETED I have reviewed this case and concur with the clinical impressions and recommendations made by this [facility] clinician who is under my clinical supervision. /lisa/ RADHA ABDI [facility] Tap Grinder Signed: 09/01/2023 12:12 [facility]ANKS [facility]
--- OUTSIDE RECORDS SUMMARY | 2024-06-14 17:23 | XMS_ITS | Encounter Summary ---
Author Name Department [place] Organization [place] Address [address] [place] [address] Support Name Relationship Address Phone VLADIMIR OVIEDO Next of Kin [address] [place] VLADIMIR OVIEDO Emergency Contact [address] [place] Selected Encounter This section includes the information on record at [place] for the Encounter. Date/Time Encounter Type Encounter Description Reason Pro vider Source Jun 06, 2024 02:34 PM Outpatient Encounter [facility]/VASH INDIV IHE Encounter Template Text not used by [place] Advance Directives: All historical and current Section Date Range: From patient's date of to the date document was created. This section includes ALL of a patient's completed or amended [place] Advance and Rescinded Directives. The entries below indicate that a directive exists for the patient, but an actual copy is not included with this document. The data comes from all [place] facilities. Date Advance Directives Provider Source August 12, 2023 ADVANCE DIRECTIVE DISCUSSION PATRIC DOWD Encounter Notes: All associated encounter notes This section contains the clinical notes associated to the Encounter. Date/Time Encounter Note(s) Provider Source Jun 06, 2024 02:34 PM HOMELESS PROGRAM T ELEPHONE ENCOUNTER NOTE: LOCAL TITLE: [id number] CONTACT STANDARD TITLE: HOMELESS PROGRAM TELEPHONE ENCOUNTER NOTE DATE OF NOTE: JUN 06, 2024@14:34 ENTRY DATE: JUN 06, 2024@14:34:34 AUTHOR: IRINA GRANT COSIGNER: URGENCY: STATUS: COMPLETED CLICK HERE TO BEGIN Attempted telephone contact to (CHECK ONE) Unable to leave a voicemail (noted as not in service or unable to accept calls) Third attempt to contact patient. Next steps: TW mail a letter as below: Jun 06, 2024 KIRBY VILLEGAS [address] [address] Dear Kirby, I have been trying to connect with you but have not been successful. The phone number I have for you are not in service. Please reach me out at your earliest convenience at [phone]. Please be in touch with me to let me know how you are doing and if there are any other resources or referrals we might help you with. If for any reason you feel unsafe please call [phone] or [phone] accordingly. Respectfully, SRIKANTH Miranda [employer] [address] [address] Cellphone [phone] ext [phone] (fax #) /es/ RENEE OLIVARES [employer] Core Layer Signed: 06/06/2024 14:35 Receipt Acknowledged By: 06/07/2024 10:08 /es/ DELMA OLIVARES Hi Teacher RENEE GRANT
--- OUTSIDE RECORDS SUMMARY | 2024-06-14 17:23 | XMS_ITS | Encounter Summary ---
Author Name [place] Organization [place] Address [address] [place] [address] Support Name Relationship Address Phone VLADIMIR OVIEDO Next of Kin [address] [address]Juliette [place] VLADIMIR OVIEDO Emergency Contact [address] [place] Selected Encounter This section includes the information on record at [place] for the Encounter. Date/Time Encounter Type Encounter Description Reason Provider Source Feb 26, 2024 07:59 PM CASE MANAGEMENT [facility] INDIV ICD-10-CM Z59.01 Sheltered homelessness GUADALUPE CORDOVA IHE Encounter Template Text not used by [place] Assessments - Encounter Diagnoses This section includes the primary and secondary diagnoses documented for the Encounter. Date/Time Primary/Secondary Diagnosis Diagnosis Name Provider Source May 18, 2024 08:05 PM PRIMARY Sheltered homelessness GUADALUPE CORDOVA [facility] Advance Directives: All historical and current Section Date Range: From patient's date of to the date document was created. This section includes ALL of a patient's completed or amended [place] Advance and Rescinded Directives. The entries below indicate that a directive exists for the patient, but an actual copy is not included with this document. The data comes from all [place] facilities. Date Advance Directives Provider Source August 12, 2023 ADVANCE DIRECTIVE DISCUSSION PATRIC DOWD Encounter Notes: All associated encounter notes This section contains the clinical notes associated to the Encounter. Date/Time Encounter Note(s) Provider Source Feb 26, 2024 08:04 PM HOMELESS PROGRAM TELEPHONE ENCOUNTER NOTE: LOCAL TITLE: [id number] CONTACT STANDARD TITLE: HOMELESS PROGRAM TELEPHONE ENCOUNTER NOTE DATE OF NOTE: FEB 26, 2024@20:04 ENTRY DATE: MAY 18, 2024@20:04:50 AUTHOR: FRANCES CORDOVA EXP COSIGNER: URGENCY: STATUS: [...] date Next Steps:Secure housing // KRYSTAL WILL [facility] SUPERVISOR COOK HOUSE Signed: 05/18/2024 20:05 FRANCES CORDOVA [place] CNTRL [facility]
--- OUTSIDE RECORDS SUMMARY | 2024-06-14 17:23 | XMS_ITS | Encounter Summary ---
Author Name Department [place] ([place] Organization [facility] Address [address] [place] [address] Support Name Relationship Address Phone VLADIMIR OVIEDO Next of Kin [address] [place] VLADIMIR OVIEDO Emergency Contact [address] [place] Selected Encounter This section includes the information on record at [place] for the Encounter. Date/Time Encounter Type Encounter Description Reason Pro vider Source IHE Encounter Template Text not used by [...] Source August 12, 2023 ADVANCE DIRECTIVE DISCUSSION LAN MEDINA,PATRIC PEREZ
--- OUTSIDE RECORDS SUMMARY | 2024-06-14 17:23 | XMS_ITS | Encounter Summary ---
Author Name [facility] Address [address] [place] [id number] Support Name Relationship Address Phone VLADIMIR OVIEDO Next of Kin [address] [address] GRACIA CARRERA VLADIMIR OVIEDO Emergency Contact [address] [address] GRACIA CARRERA Selected Encounter This section includes the information on record at [place] for the Encounter. Date/Time Encounter Type Encounter Description Reason Provider Source Apr 30, 2024 06:59 PM PH1 ASSMT&MGMT NQ 11-20 [facility] ICD-10-CM Z59.01 Sheltered homelessness GUADALUPE CORDOVA E Encounter Template Text not used by [place] Assessments - Encounter Diagnoses This section includes the primary and secondary diagnoses documented for the Encounter. Date/Time Primary/Secondary Diagnosis Diagnosis Name Provider Source May 18, 2024 07:32 PM PRIMARY Sheltered homelessness GUADALUPE CORDOVA [facility] Advance Directives: All historical and current Section Date Range: From patient's date of to the date document was created. This section includes ALL of a patient's completed or amended [place] Advance and Rescinded Directives. The entries below indicate that a directive exists for the patient, but an actual copy is not included with this document. The data comes from all [place] facilities. Date Advance Directives Provider Source August 12, 2023 ADVANCE DIRECTIVE DISCUSSION PATRIC DOWD Encounter Notes: All associated encounter notes This section contains the clinical notes associated to the Encounter. Date/Time Encounter Note(s) Provider Source Apr 30, 2024 07:28 PM HOMELESS PROGRAM TELEPHONE ENCOUNTER NOTE: LOCAL TITLE: [id number] CONTACT STANDARD TITLE: HOMELESS PROGRAM TELEPHONE ENCOUNTER NOTE DATE OF NOTE: APR 30, 2024@19:28 ENTRY DATE: MAY 18, 2024@19:29:08 AUTHOR: FRANCES CORDOVA EXP COSIGNER: URGENCY: STATUS: COMPLETED Telephone contact with [place] identified by (select two): Full Name, SSN Length of contact:15 minutes Case management stage:Intensive Diagnosis Addressed:homelessness Subject of call:(click one or more)Housing and wellness Description of contact:Checked in with for follow up on housing funds, furniture deliveries etc. Collaborated with outside vendors. Notable changes in mental status:Oriented x3, insight and [employer] wnl, affect congruent to the content of call. no si/hi reported Any clinical indications of increased risk? No If yes, CSSRS was completed on this date Next Steps:Assist as needed for final transitions /es/ [facility]RYSTAL [facility] [employer] Signed: 05/18/2024 19:32 FRANCES CORDOVA [place] [facility] [employer]
== END 2024-06-14 16:45 | disposition home or self-care (01) ==
PROVIDERS: PCP Internal Medicine
DX: R35.0 Frequency of micturition (principal)

== ENCOUNTER → 2024-06-14 16:01 | Outpatient (BNVA) | payer MEDICARE, MEDICAID, SELFPAY | PROVIDERS: PCP Internal Medicine | DX: R35.0 Frequency of micturition (principal) | CPT/HCPCS: 81003; 96127; 99212 ==

== ENCOUNTER 2024-12-23 10:36 | Outpatient (AMB) | payer MEDICARE, MEDICAID, SELFPAY ==
[2024-12-23 11:34] VITALS: BP 132/80; PULSE 73; O2SAT 98; BMI 19.2
--- NOTE | 2024-12-23 11:34 | A.OFFPC_ITS ---
Vital Signs 12/23/24 11:34 Height 5 ft Weight 98 lb 2 oz BMI 19.2 BP 132/80 Blood Pressure Location Lt brachial Position Sitting Pulse 73 Pulse Oximetry (%) 98 Oxygen Delivery Method Room Air Intake Visit Reasons: LEFT FOOT PAIN Parking Enforcement Manager Required: No Accompanied by: Self / Same As Patient Allergies bacitracin (BACITRACIN) Allergy (Unknown, Verified 12/23/24 11:38) UNKNOWN latex (LATEX) Allergy (Unknown, Verified 12/23/24 11:38) ITCHING penicillin V Allergy (Unknown, Verified 12/23/24 11:38) Unknown Penicillins (PENICILLINS) Allergy (Unknown, Verified 12/23/24 11:38) UNKNOWN Dye SENIOR CARE Red 2 (Amaranth) Allergy (Unknown, Uncoded 06/14/24 16:04) Unknown Dye SENIOR CARE Red 3 (Erythrosine) Allergy (Unknown, Uncoded 06/14/24 16:04) Unknown Dye SENIOR CARE Red 40 (Allura Red) Allergy (Unknown, Uncoded 06/14/24 16:04) Unknown Dye SENIOR CARE Red 40 ([place] Red) Allergy (Unknown, Uncoded 06/14/24 16:04) Unknown Latex Allergy (Unknown, Uncoded 06/14/24 16:04) Unknown Latex Gloves Allergy (Unknown, Uncoded 06/14/24 16:04) itching Medication List - Last Reconciled 12/23/24 by Merle Barrientos MD No Known Home Meds Tobacco use date assessed: 12/23/24 Fall risk assessment: 1 Fall in past year Last assessed Fall Risk: 12/23/24 Dental Screening Dental Screen Date: 12/23/24 Did you have a dental visit in the last 12 months?: Yes Did you have a dental problem in the last 6 months where you did not have access to dental care?: No Was dental information given to patient?: Patient has dentist HPI HPI Comments History of Present Illness Details The patient is an 78-year-old female presenting with a foot problem and urinary frequency. The foot problem involves the bottom of one foot, which the patient requested to be examined during the visit. The other foot does not exhibit the same issue. 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 She has been informed previously that her condition was fine, but she continues to experience frequent urination. [facility] Medical History Cellulitis Surgical History Hx of hernia repair Hx of breast implants, bilateral No pertinent past surgical history Family History Mother No problems noted. Father No problems noted. Social History Housing: Homeless Alcohol intake: never Patient Tobacco Use Status: Never used Tobacco e-Cigarette/Vaping Use: Never Used Second Hand Smoke Exposure: No service: No Current occupational status: retired Cognitive needs: No Hearing needs: No Vision needs: Yes (glasses) Female Reproductive History Menstrual Age of Menarche: 11 Questionnaire PHQ-9 Over the last 2 weeks, how often have you been bothered by any of the following problems? 1. Little interest or pleasure in doing things: not at all 2. Feeling down, depressed, or hopeless: not at all 3. Trouble falling or staying asleep, or sleeping too much: not at all 4. Feeling tired or having little energy: not at all 5. Poor appetite or overeating: not at all 6. Feeling bad about yourself - or that you are a failure or have let yourself or your family down: not at all 7. Trouble concentrating on things, such as reading the newspaper or watching television: not at all 8. Moving or speaking so slowly that other people could have noticed. Or the opposite - being so fidgety or restless that you have been moving around a lot more than usual: not at all 9. Thoughts that you would be better off or of hurting yourself in some way: not at all Total score: 0 Source: Developed by Drs. Mark Haney, Yasmine Thompson, Errol Horne and colleagues, with an educational laura from [employer]. Thrive Questionnaire Date Thrive assessed: 06/14/24 I am a: Patient What is your living situation today?: I have a steady place to live Within the past 12 months, did the food you bought not last and you didn't have the money to get more?: Sometimes True Within the past 12 months, did you worry whether your food would run out before you got money to buy more?: Sometimes True Do you have trouble paying for medicines?: No Do you have trouble getting transportation to medical appointments?: Yes Do you have trouble paying your heating and electricity bill?: No Do you have trouble taking care of your child, family member or friend?: No Do you have trouble with day-to-day activities such as bathing, preparing meals, shopping, managing finances, etc.?: No Are you currently unemployed and looking for a job?: No Are you interested in more education?: Yes Please select the resources that you would like help with: Transportation, Utilities, Daily support and Education Currently or been in a relationship where the following occur: No concerns reported THRIVE Score: 3 AUDIT C Alcohol Use Questionnaire (AUDIT-C) 1. How often do you have a drink containing alcohol?: Never Total Score: 0 DANA-7 AMB Questionnaire DANA-7 Date DANA - 7 assessed: 06/14/24 Feeling nervous, anxious, or on edge: 0 = Not at all Not being able to stop or control worryin = Not at all Worrying too much about different things: 0 = Not at all Trouble relaxin = Not at all Being so restless that it is hard to sit still: 0 = Not at all Becoming easily annoyed or irritable: 0 = Not at all Feeling afraid as if something awful might happen: 2 = More than half the days Total DANA-7 score (0-4 normal; 5-9 mild; 10-14 moderate; 15-21 severe): 2 Source: Developed by Drs. Mark Haney, Yasmine Thompson, Errol Horne and colleagues, with an educational laura from [employer]. Physical exam (Primary Care) Vital Signs: Last Vital Signs Pulse 73 12/23/24 11:34 BP 132/80 12/23/24 11:34 Pulse Ox 98 12/23/24 11:34 Oxygen Delivery Method Room Air 12/23/24 11:34 BMI result Body Mass Index 19.2 Tobacco/Smoking Status: Tobacco use Status Tobacco use date assessed 12/23/24 12/23/24 11:41 Patient Tobacco Use Status Never used Tobacco 12/23/24 11:41 e-Cigarette/Vaping Use Never Used 12/23/24 11:41 PHQ-9: PHQ-9 Score PHQ-9: Total score 0 12/23/24 11:41 Thrive Assessment: Date of Thrive Assessment Date Thrive assessed 06/14/24 12/23/24 11:41 Currently or been in a relationship where the following occur: No concerns reported Const Other: Pertinent findings are in BOLD GENERAL APPEARANCE NAD, activity normal for age, well developed/ well nourished, no cyanosis, pallor, or diaphoresis. EYES lids/conjunctiva normal. EARS/NOSE/THROAT Mucous membranes moist, nares normal, lips/teeth normal uvula midline without oral pharyngeal erythema, exudate or swelling TMs normal bilaterally. No lymphangitis/lymphedema. HEAD/NECK normocephalic atraumatic, no facial trauma, neck is supple. RESPIRATORY respiratory effort normal, speaks in full sentences, no tripod position, no accessory muscle use. Lungs clear to auscultation without rhonchi, wheezes, rales CARDIAC Regular rate and rhythm, no edema. ABDOMINAL Soft, ND/NT. No evidence of fluid wave. No pulsatile masses on exam, rebound tenderness, White sign or pain over Mcburney's point. MUSCLES/EXTREMITIES No abnormal range of motion, no swelling. SKIN Warm, pink and dry. No rashes, dermatoses, petechiae or lesions. Foot ulcers and bunions bilaterally. NEUROLOGICAL Speech is clear and appropriate. Normal level of consciousness. Gait and coordination are normal. 5/5 strength in all extremities. PSYCH Normal mood and affect. Judgement/competence is appropriate Coding Level of Care Code Est Pt Level 3 (18161) Diagnoses Bunion of great toe M21.619 Urinary frequency R35.0 Foot ulcer L97.509 Assessment & Plan Assessment & Plan (1) Bunion of great toe: Code(s): M21.619 - Bunion of unspecified foot Category: Medical Plan: Podiatry referral. (2) Urinary frequency: Code(s): R35.0 - Frequency of micturition Category: Medical Plan: urology referral. (3) Foot ulcer: Code(s): L97.509 - Non-pressure chronic ulcer of other part of unspecified foot with unspecified severity Category: Medical Plan: Podiatry referral. Plan As above. Orders: Referrals Podiatry Referral M21.619 - Bunion of unspecified foot Urology Referral R35.0 - Frequency of micturition
== END 2024-12-23 14:04 | disposition home or self-care (01) ==
LOC: HO.HMCH 10:36
PROVIDERS: PCP Internal Medicine; Visit Provider Internal Medicine
DX: M21.619 Bunion of unspecified foot (principal); R35.0 Frequency of micturition; L97.509 Non-pressure chronic ulcer of other part of unspecified foot with unspecified severity

== ENCOUNTER → 2024-12-23 10:36 | Outpatient (BNVA) | payer MEDICARE, MEDICAID, SELFPAY | PROVIDERS: PCP Internal Medicine; Visit Provider Internal Medicine | DX: R35.0 Frequency of micturition (principal); L97.519 Non-pressure chronic ulcer of other part of right foot with unspecified severity; L97.529 Non-pressure chronic ulcer of other part of left foot with unspecified severity; M21.611 Bunion of right foot; M21.612 Bunion of left foot | CPT/HCPCS: 96127; 99212 ==

== ENCOUNTER 2024-12-27 10:32 | Outpatient (AMB) | payer MEDICARE, MEDICAID, SELFPAY ==
--- NOTE | 2024-12-27 10:36 | A.OFFVIS_ITS ---
Vital Signs 12/27/24 10:38 Height 5 ft Weight 98 lb BMI 19.1 Intake Visit Reasons: Bunion of unspecified foot Intake Note: Zuleima french is an 78 year old female who presents today as a new patient for an evalution of her left foot bunions. She mentions her main concerns are in regards to the callous of her left foot. Patient reports her left foot feeling pain in her foot as well as sore Allergies bacitracin (BACITRACIN) Allergy (Unknown, Verified 12/27/24 10:41) UNKNOWN latex (LATEX) Allergy (Unknown, Verified 12/27/24 10:41) ITCHING penicillin V Allergy (Unknown, Verified 12/27/24 10:41) Unknown Penicillins (PENICILLINS) Allergy (Unknown, Verified 12/27/24 10:41) UNKNOWN Dye LONG TERM Red 2 (Amaranth) Allergy (Unknown, Uncoded 06/14/24 16:04) Unknown Dye LONG TERM Red 3 (Erythrosine) Allergy (Unknown, Uncoded 06/14/24 16:04) Unknown Dye LONG TERM Red 40 (Allura Red) Allergy (Unknown, Uncoded 06/14/24 16:04) Unknown Dye LONG TERM Red 40 ([place] Red) Allergy (Unknown, Uncoded 06/14/24 16:04) Unknown Latex Allergy (Unknown, Uncoded 06/14/24 16:04) Unknown Latex Gloves Allergy (Unknown, Uncoded 06/14/24 16:04) itching HPI HPI Bunion of unspecified foot: Details: The patient is an 78-year-old female presenting with severe bunion and painful calluses and nails. The bunion on the left foot has been present for most of her life, with the patient noting a history of running marathons, which may have contributed to the condition. She states it does not cause her significant pain however she has difficulty wearing appropriate shoe wear. Patient states she has had calluses for several years and goes to multiple quality control analyst for routine treatment. The patient has been using a urea-based kuht-pba-kuixcum cream, which helps. patient ambulates with a rolling walker. [facility] Medical History Cellulitis Surgical History Hx of hernia repair Hx of breast implants, bilateral No pertinent past surgical history Family History Mother No problems noted. Father No problems noted. Social History Housing: Homeless Alcohol intake: never Patient Tobacco Use Status: Never used Tobacco e-Cigarette/Vaping Use: Never Used Second Hand Smoke Exposure: No service: No Current occupational status: retired Cognitive needs: No Hearing needs: No Vision needs: Yes (glasses) Female Reproductive History Menstrual Age of Menarche: 11 Review of Systems Const All systems reviewed & are unremarkable except as noted in HPI and below Physical Exam Vital Signs: BMI result Body Mass Index 19.1 Extrem Other: *Bilateral Lower Extremity Focused Foot Exam Vascular: DP/PT 2/4, CFT<3s to digits, TG warm to cool, no pedal edema, pedal hair absent Derm: Skin: Large hyperkeratotic lesion left foot submetatarsal 2 and 3, medial h allux, dorsal medial eminence 1st metatarsal and right foot submet 2. No clinical signs of infection. No wounds underneath the lesions. Interdigital spaces: Clear, no maceration or fungal infection. Nails: Dystrophic elongated thickened toenail with subungual debris times 10. Neuro: Protective sensation grossly intact to bilateral extremities. Msk: Deformities: Dislocated/severe track bound hallux valgus deformity left foot with overlapping 2nd through 4th rigid hammertoe deformities. Right foot mild hallux abductovalgus deformity. Mild 2nd digit hammertoe. Muscle strength: 4/5 in all muscle groups. Gait: Normal, no antalgic or steppage gait observed. Footwear Assessment: Shoes inspected; appropriate fit, no excessive wear, or foreign objects noted. Office Procedures AMB Debridement/Avulsion Podia Details: All elongated, thickened, discolored toenails x 10 using a sterile nail nipper. The patient tolerated the procedure well with no complications. 4 calluses left foot and 1 callus right foot were radially shaved using a #15 blade. Patient tolerated the procedure well with no complications. Class B findings as per physical exam findings above. Follow up in 9 weeks. 05892-Xywqeyzroml of Nail 6+ 22914-Tzlpjcdegqo of Callus (5+) Procedure code (CPT) selection complete Assessment & Plan Assessment & Plan (1) Bunion of great toe: Code(s): M21.619 - Bunion of unspecified foot Category: Medical Plan: * Discussed treatment options if the patient has severe pain to her bunion. Including possible surgical excision due to the significant arthritis. Recommended x-rays, which the patient deferred. * Discussed the risks and complications with the surgery and recommended conservative care if she does not have significant pain, which she does not endorse at this time. (2) Onychogryphosis: Code(s): L60.2 - Onychogryphosis Category: Medical Plan: * Debrided elongated thickened toenails times 10. No complications. (3) Callus: Code(s): L84 - Corns and callosities Category: Medical Plan: * Debrided calluses x5. No complications. Recommended routine care frequently to avoid progression of callosities. * Rx urea cream (4) Gait abnormality: Code(s): R26.9 - Unspecified abnormalities of gait and mobility Category: Medical Plan: * Patient requires routine care due to her inability to provide self-care. Orders: Orders AMB Debridement/Avulsion Podiatry Today L60.2 - Onychogryphosis Medications: New urea 20% 1 appl topical BID 85 grams 3RF onychomycosis L60.2 - Onychogryphosis Coding Level of Care Code New Pt Level 3 (70005) Diagnoses Bunion of great toe M21.619 Onychogryphosis L60.2 Callus L84 Gait abnormality R26.9 CPT Codes Skin Debridement - CPT: 68112-Wxvlvrxivsl of Nail 6+ ([id number]) Skin Debridement - CPT: 36277-Qudezxanvuh of Callus (5+) ([id number]) Time Spent (min) 35
[2024-12-27 10:38] VITALS: BMI 19.1
--- OUTSIDE RECORDS SUMMARY | 2024-12-27 11:11 | XMS_ITS | Clinical Summary ---
Author Organization [facility] Address [address] [facility] [address] [place] [address] Phone Care Team Providers Care Director Of Employee Development Name Role Phone Janna Browning MD Primary Care Provider [phone] Allergies Active Allergy Reactions Criticality Noted Date Comments Bacitracin Unknown 10/15/2013 Latex 01/26/2024 Penicillins Unknown 10/15/2013 Medications No known medications Active Problems Problem Noted Date Diagnosed Date Vaginal atrophy 09/12/2024 Assessment & Plan (09/12/2024 11:03 AM EDT): Patient with symptoms of intermittent vaginal itching without discharge. Pelvic exam performed today with actionscript developer present. On exam, there is atrophy of the vaginal wall, no discharge present, no other lesions present. Will start treatment with Estrace cream daily for 14 days then twice weekly following. NuSwab obtained today to ensure no vaginitis but will hold off on empiric treatment given no gross findings of vaginitis on exam today. Moderate persistent asthma without complication 06/12/2024 Assessment & Plan (06/12/2024 12:15 PM EST): Reported history of asthma, not maintained on inhalers or prescribed PRN inhalers. Declines PRN albuterol today. Lungs are CTAB. Encounter to establish care 06/12/2024 Assessment & Plan (06/12/2024 12:16 PM EST): Here to establish at [facility], prior records received and reviewed Specific concerns as addressed separately Screening labwork ordered Declines IZ today RTC in 3 months for AWV, sooner PRN Left breast mass 06/12/2024 Assessment & Plan (06/12/2024 12:13 PM EST): Declines biopsy or follow-up imaging for this at this time. Will continue to discuss. Horseshoe kidney 01/16/2024 Assessment & Plan (09/12/2024 11:03 AM EDT): New referral to urology placed today. Assessment & Plan (06/12/2024 12:14 PM EST): Previously referred to urology, not yet scheduled. Number provided to patient today. Assessment & Plan (01/26/2024 9:48 AM EDT): I provided her with the information about her referral, she is appreciative. Assessment & Plan (01/16/2024 4:31 PM EDT): She reports that she stopped seeing her prior urologist and needs a new one. Referral placed. Bunion 01/16/2024 Assessment & Plan (01/26/2024 9:48 AM EDT): I provided her with the information about her referral, she is appreciative. Assessment & Plan (01/16/2024 4:32 PM EDT): Chronic on her left foot, her project design engineer moved and needs a new one. Referral placed. Arthritis 10/15/2013 Overview (05/31/2014): Arthritis Heart murmur 10/15/2013 Overview (05/31/2014): Heart murmur Resolved Problems Problem Noted Date Diagnosed Date Resolved Date Asthma 10/15/2013 06/12/2024 Overview (05/31/2014): Asthma Encounters Date Type Department Care Team Description 12/20/2024 Telephone [facility] [address] [place] [address] Janna Browning MD Referral ([facility]) 12/13/2024 Telephone [facility] [address] [place] [address] Janna Browning MD urology issue 12/13/2024 Telephone [facility] [address] [place] [address] Janna Browning MD No Show (Same day cancel) 11/28/2024 Telephone [facility] [address] [place] [address] Janna Browning MD Results 09/27/2024 Telephone [facility] [address] [place] [address] Janna Browning MD Letter for School/Work (Mail Please MIKEY ) 09/27/2024 [facility] [address] [place] [address] Jessenia Valle Referral from Last 3 Months Social History Tobacco Use Types Packs/Day Years Used Date Smoking Tobacco: Never Tobacco Cessation:Counseling Given: Not Answered Education Answer Date Recorded Are you interested in more education? Not on anne e 08/14/2022 Are you concerned about learning? Not on file 08/14/2022 No 08/14/2022 No 08/14/2022 Digital Access Answer Date Recorded No 09/04/2022 No 09/04/2022 Reliable internet access at home? Not on file 09/04/2022 Device with a working camera? Not on file Intimate Partner Violence Answer Date R ecorded Are you denied basic needs [facility] as food, clothing, or medical care? No 10/03/2023 In the past 12 months have y ou been in a relationship with a person who hurts, threatens, or tries to control you? No 10/03/2023 Are you denied basic needs [facility] as food, clothing, or medical care? No 10/03/2023 In the past 12 months have y ou been in a relationship with a person who hurts, threatens, or tries to control you? No 10/03/2023 Comments Unknown Sex and Gender Information Value Date Recorded Sex Assigned at Not on file Legal Sex Female 6:24 PM EST Gender Identity Not on file Sexual Orientation Not on file Last Filed Vital Signs Vital Sign Reading Time Taken Comments Blood Pressure 126/74 09/12/2024 10:14 AM EDT Pulse 79 09/12/2024 10:14 AM EDT Temperature 36.3 C (97.4 F) 09/12/2024 10:14 AM EDT Respiratory Rate 14 10/03/2023 1:50 AM EDT Oxygen Saturation 96% 09/12/2024 10:14 AM EDT Inhaled Oxygen Concentration - - Weight 44.5 kg (98 lb) 09/12/2024 10:14 AM EDT Height - - Body Mass Index - - Plan of Treatment Health Maintenance Due Date Last Done Comments Adult Td,Tdap Booster 1945 DEPRESSION SCREENING 1955 PNEUMOCOCCAL VACCINES (50+ y ears) (1 of 2 - PCV) 12/30/1962 ZOSTER VACCINES (1 of 2) 12/30/1993 OSTEOPOROSIS SCREENING INITI AL (ONE-TIME) 12/30/2008 RSV VACCINE (1 - 1-dose 75+ series) 12/30/2018 INFLUENZA VACCINE (#1) 2024 COVID-19 VACCINE (2 - 2024-2 6 season) 2024 05/27/2020 LIPID PANEL 09/12/2029 09/12/2024 SMOKING STATUS SCREENING (On ce After 26 Yrs) Completed 09/12/2024 HEPATITIS A VACCINES Aged Out No long er eligible based on patient's age to complete this topic HIB VACCINES Aged Out No longer eligi ble based on patient's age to complete this topic MENINGOCOCCAL VACCINES (ACWY) Aged Out No longer eligible based on patient's age to complete this topic MENINGOCOCCAL VACCINES (B) Aged Out N o longer eligible based on patient's age to complete this topic Medical Devices Not on file Procedures Procedure Name Priority Date/Time Associated Diagnosis Comments LIPID PANEL Routine 09/12/2024 9:40 AM EDT Screening for cardiovascular condition from Last 3 Months or Most Recently Relevant to Health Maintenance Results * (ABNORMAL) Lipid panel (09/12/2024 9:40 AM EDT) HDL 82 mg/dL [facility] Comment: Interpretation <40 mg/dL: Low HDL cholesterol (major risk factor for CHD) Greater than or equal to 60 mg/dL: High HDL cholesterol ( negative risk factor for CHD) HDL - cholesterol is affected by a number of factors, e.g. smoking, excerise, hormones, sex and age. CHOLESTEROL 187 0 - 240 mg/dL [facility] TRIGLYCERIDES 80 30 - 160 mg/dL [facility] LDL 89 50 - 129 mg/dL [facility] Comment: LDL levels in terms of risk for coronary heart disease: <100 mg/dL: Optimal 100-129 mg/dL: Near or above optimal 130-159 mg/dL: Borderline high 160-189 mg/dL: High >190 mg/dL: Very High CARDIAC RISK RATIO 2.3(L) 3.3 - 4.4 C [facility] Blood 09/12/2024 9:40 AM EDT 09/12/2024 10:12 AM EDT Janna Browning MD LAB BLOOD ORDERABLES Final Result [address] [id number] from Last 3 Months or Most Recently Relevant to Health Maintenance Insurance MEDICARE PART A & B [facility] MEDICARE PART A [place] [id number] MEDICARE PART A & [facility] & [facility] A & B Member Subscriber Plan / Payer ( fective 2008-Present) Name:SolomonZuleima campa Member ID:[id number] Relation to Subscriber:Self Name:SolomonZuleima campa Subscriber ID:[id number] Payer ID:[id number] Group ID:Not on file Type:Medicare Address: [employer] [facility] [address] [place] [address] [facility] A & B [place] MEDICARE PART A & B [facility] MEDICARE PART A & [facility] A & B [facility] Care Teams Director Of Employee Development Relationship Specialty Start Date End Date Janna Browning MD [address] [place] [address], [address] [place] [address] [email or web address] PCP - General Family Medicine 06/12/24 Additional Source Comments The information contained in this document represents components of the legal health record. It is not the complete legal health record.[facility]
--- OUTSIDE RECORDS SUMMARY | 2024-12-27 11:11 | XMS_ITS | Encounter Summary ---
Author Organization [facility] Address [address] [place] [address] [place] [address] Phone Care Team Providers Care Clinical Nurse Leader Name Role Phone Jp Berkowitz MD Primary Care Provider [phone] Janna Browning MD Primary Care Provider [phone] Encounter Details Date Type Department Care Team (Late st Contact Info) Description 01/24/2024 Telephone [employer] [facility] [address] [place], [place] [phone] Jp Berkowitz MD [address] [place] [address] Dr Guzman [place] [address] Social History Tobacco Use Types Packs/Day Years Used Date Smoking Tobacco: Never Education Answer Date Recorded Are you interested [...] ecorded Are you denied basic needs s uch as food, clothing, or medical care? No 10/03/2023 In the past 12 months have y ou been in a relationship with a person who hurts, threatens, or tries to control you? No 10/03/2023 Are you denied basic needs s uch as food, clothing, or medical care? No [...] on file Sexual Orientation Not on file documented as of this encounter Plan of Treatment Not on file documented as of this encounter Visit Diagnoses Not on filedocumented in this encounter Care Teams Clinical Nurse Leader Relationship Specialty Start Date End Date Jp Berkowitz MD [address] [place] [address] [address] PCP - General 10/08/13 06/11/24 Janna Browning MD [address] [place] [address] [address] [place] [address] [email or web address] PCP - General Family Medicine 06/12/24 documented as of this encounter Additional Source Comments The information contained in this document represents components of the legal health record. It is not the complete legal health record.[facility]
--- OUTSIDE RECORDS SUMMARY | 2024-12-27 11:11 | XMS_ITS | Encounter Summary ---
Author Organization [facility] Address [address] [facility] [address] [place] [address] Phone Care Team Providers Care Casing Trimmer Name Role Phone Janna Browning MD Primary Care Provider [phone] Reason for Visit * Reason Onset Date Comments No Show 12/13/2024 Same day cancel Encounter Details Date Type Department Care Team ([facility] st Contact Info) Description 12/13/2024 Telephone [employer] [facility] [address] [place] [address] Janna Browning MD [address] [facility] 7 [place] [address] [email or web address] No Show (Same day cancel) Social History Tobacco Use Types Packs/Day Years [...] on file documented as of this encounter Progress Notes * Debra Marcelo - 12/13/2024 11:47 AM EDT [facility] PEN Top Smart Phrases: 24-48 Hour No-Show Notice If caller not the patient: Name: Relationship: Cancel Appt Visit Type: FOLLOW UP VISIT Cancelation Reason: Lack of Transportation Cancelation Detail: Bus is running behind Was Appt Reschedule: Yes Why Reschedule was not performed (W/Detail) n/a Awareness: I have reiterated our late cancellation policy to the caller. Agent Action: > Reason for Call: NO SHOW > Comment: Enter Cancel Appt date > Route: Route to FD if the No-Show is a future date. > Route: OXBOW SDV and Sick Visit No-Show, route to RN for rescheduling. Do not Call Center: Ensure the appt has been cancel from the future tab > Reiterate Scripting: Provide our late cancellation policy to the caller Required Scripting for Existing Patients: Thank you for notifying us about the cancellation. We will inform the provider. As a reminder, our policy requires at least 24 hours' notice for cancellations, as providers reserve time for your appointment, and short notice often makes it difficult to reschedule. You can cancel appointments anytime through your Patient Edwall. We appreciate your understanding. Required Scripting for New Patients: Thank you for notifying us about the cancellation. We will inform the provider. Please be aware of our 48-hour cancellation policy for new patients. If you need to cancel or reschedule, we ask for at least 48 hours' notice. If you miss an appointment or cancel without sufficient notice, it will be marked as a No-Show appointment. We allow for two unforeseen circumstances under this policy. This policy ensures that our providers can manage their schedules effectively. Additionally, you can cancel appointments anytime through your Patient Edwall. documented in this encounter Plan of Treatment Not on file documented as of this encounter Visit Diagnoses Not on filedocumented in this encounter Care Teams Casing Trimmer Relationship Specialty Start Date End Date Janna Browning MD [address] [place] [address], [address] [place] [address] [email or web address] PCP - General Family Medicine 06/12/24 documented as of this encounter Additional Source Comments The information contained in this document represents components of the legal health record. It is not the complete legal health record.[facility]
--- OUTSIDE RECORDS SUMMARY | 2024-12-27 11:11 | XMS_ITS | Encounter Summary ---
Author Organization [facility] Address [address] [place] [address] [place] [address] Phone Care Team Providers Care Bench Lay Out Technician Name Role Phone Janna Browning MD Primary Care Provider [phone] Reason for Referral * Consultation (Within 1 month) - New Request Specialty Diagnoses / Procedures Referred By Elenita gage Referred To Contact Diagnoses Janna Corrigan MD [address] [facility] [address] [place] [address] Phone: tel: fax: mailto:[email or web address] Unknown, Unknown, Referral ID Status Reason Start Date Expiration Date V isits Requested Visits Authorized [id number] New Request 12/24/2024 12/24/2025 1 1 Reason for Visit * Reason Onset Date Comments Referral 12/20/2024 [facility] Encounter Details Date Type Department Care Team (Late st Contact Info) Description 12/20/2024 Telephone [facility] Medicine [address] [place] [address] Janna Browning MD 234 [facility] 7 [place], [place] [address] [email or web address] Referral ([facility]) Social History Tobacco Use Types Packs/Day Years [...] as of this encounter Progress Notes * Guicho Umana CMA - 12/24/2024 8:50 AM EDT Ref pended for review * Maciel Pierson - 12/20/2024 2:57 PM EDT Pt got a screening representative of [facility] on the line during this call. Graduate Teaching Associate stated that [facility] is a new office they are opening up, and they are unsure when they will be accepting pt'svia external referrals, but also stated that it is ok to send this referral to them. [facility] P[facility] Top Smart Phrases: Referral Request 1. Name of the office where the patient has been seen/requests to be seen: [facility] 2. Reason for referral/specialist appointment and the diagnosis code: Foot Problem 2A. Have you seen this provider before for this same problem? YES/NO: no 2B. If this is a new problem, is your PCP aware of your symptoms? YES/NO: yes 3. Date of appointment(s):Not scheduled without referral 4. Name of specialist provider: Unknown 5. NPI number to enter for referral authorization (enter n/a if not available): Unknown 6. Number of visits requested for referral: 6 7. Fax number of specialist office to send referral authorization: [phone] documented in this encounter Plan of Treatment Scheduled Referrals Name Type Priority Associated Diagnoses Order Schedule Ambulatory referral to External Podiatry Outpatient Referral Routine Bunion Ordered: 12/24/2024 documented as of this encounter Visit Diagnoses Diagnosis Bunion- Primary documented in this encounter Care Teams Bench Lay Out Technician Relationship Specialty Start Date End Date Janna Browning MD [address] [place] [address], [address] [place] [address] [email or web address] PCP - General Family Medicine 06/12/24 documented as of this encounter Additional Source Comments The information contained in this document represents components of the legal health record. It is not the complete legal health record.[facility]
--- OUTSIDE RECORDS SUMMARY | 2024-12-27 11:11 | XMS_ITS | Encounter Summary ---
Author Organization [facility] Address [address] [facility] [address] [place] [address] Phone Care Team Providers Care Team Cdl Driver Name Role Phone Janna Browning MD Primary Care Provider [phone] Reason for Visit * Reason Onset Date Comments urology issue 12/13/2024 Encounter Details Date Type Department Care Team (Late st Contact Info) Description 12/13/2024 Telephone [facility] [address] [place] [address] Janna Browning MD 234 [facility] 7 [place] [address] [email or web address] [email or web address] issue Social History Tobacco Use Types Packs/Day Years [...] as of this encounter Progress Notes * Aileen De Leon RN - 12/16/2024 10:31 AM EDT Left message advising patient there are no sooner appointments than 12/26/24. Requested call back tofurther discuss symptoms. * Ana Laura Mccray - 12/13/2024 4:28 PM EDT Pt called in returning a call to triage. Caller was upset about not being able to directly connect with triage and was not forth coming with information. Pt then stated they had to stay in the bathroom for an hour to urinate. Pt unable to urinate and believes symptoms are worsening. Pt stated she missed her appt today because the bus was half an hour late getting her to the office. Pt is requesting a call back for a sooner appt. Please contact and advise. [employer] (Please do not reply to this user; this inbox is not monitored.) Thank you. * Rosa Pitts - 12/13/2024 4:05 PM EDT Received return call from pt. Pt states she will be available for a return call now. [employer] (Please do not reply to this user; this inbox is not monitored.) Thank you. * Sharon Luis RN - 12/13/2024 3:35 PM EDT LVM to have patient call office. * Janna Browning MD - 12/13/2024 1:27 PM EDT Team please call patient to triage. If no change in symptoms then continue with follow-up as scheduled Thank you * Zack Pastor - 12/13/2024 1:02 PM EDT Spoke with pt when she came late to appointment today with GD and had to reschedule. She rebooked with him 12/26. Pt asks what she should do about her ongoing urology issues. Spoke about the referral you placed for her to [facility] and she states she saw them and they told her she was fine andto come back in a year, but she is not fine and still having symptoms. She would like to know what you'd recommend for next steps. Thank you! documented in this encounter Plan of Treatment Not on file documented as of this encounter Visit Diagnoses Not on filedocumented in this encounter Care Teams Team Cdl Driver Relationship Specialty Start Date End Date Janna Browning MD [address] [place] [address], [address] [place] [address] [email or web address] PCP - General Family Medicine 06/12/24 documented as of this encounter Additional Source Comments The information contained in this document represents components of the legal health record. It is not the complete legal health record.[facility]
== END 2024-12-27 11:14 | disposition home or self-care (01) ==
LOC: HO.HPODS 10:33
PROVIDERS: PCP Internal Medicine; Visit Provider Student in an Organized Health Care Education/Training Program
DX: M21.619 Bunion of unspecified foot (principal); L60.2 Onychogryphosis; L84 Corns and callosities; R26.9 Unspecified abnormalities of gait and mobility
CPT/HCPCS: 11057; 11721; 99203

== ENCOUNTER → 2024-12-27 10:32 | Outpatient (BNVA) | payer MEDICARE, MEDICAID, SELFPAY | PROVIDERS: PCP Internal Medicine; Visit Provider Student in an Organized Health Care Education/Training Program | DX: M21.612 Bunion of left foot (principal); L84 Corns and callosities; M20.12 Hallux valgus (acquired), left foot; L60.2 Onychogryphosis; R26.9 Unspecified abnormalities of gait and mobility | CPT/HCPCS: 11057; 11721; 99202 ==

== ENCOUNTER 2025-01-10 14:17 | Outpatient (AMB) | payer MEDICARE, MEDICAID, SELFPAY ==
--- OUTSIDE RECORDS SUMMARY | 2025-01-10 14:24 | XMS_ITS | Encounter Summary ---
Author Organization [facility] Address [address] [place] [address] [place] [address] Phone Care Team Providers Care Switch Engineer Name Role Phone Jp Berkowitz MD Primary Care Provider [phone] Janna Browning MD Primary Care Provider [phone] Encounter Details Date Type Department Care Team (Late st Contact Info) Description 01/24/2024 Telephone [email or web address] [facility] [address] [place], [place] [id number] Jp Berkowitz MD [address] [place] [address] Dr Guzman [place] [address] Social History Tobacco Use Types Packs/Day Years [...] on filedocumented in this encounter Care Teams Switch Engineer Relationship Specialty Start Date End Date Jp Berkowitz MD [address] [place] [address] [address] PCP - General 10/08/13 06/11/24 Janna Browning MD [address] [place] [address] 7 [place] [address] [email or web address] PCP - General Family Medicine 06/12/24 documented as of this encounter Additional Source Comments The information contained in this document represents components of the legal health record. It is not the complete legal health record.[facility]
--- OUTSIDE RECORDS SUMMARY | 2025-01-10 14:24 | XMS_ITS | Encounter Summary ---
Author Organization [facility] Address [address] [place] [phone] Phone Care Team Providers Care Automotive Brake Adjuster Name Role Phone Janna Browning MD Primary Care Provider [phone] Reason for Visit * Reason Onset Date Comments Triage 01/02/2025 Urinary frequenc y Encounter Details Date Type Department Care Team ([facility] st Contact Info) Description 01/02/2025 Telephone [facility] [address] [place] [address] Janna Browning MD [address] [facility] [address] [place] [address] [email or web address] Triage (Urinary frequency ) Social History Tobacco Use Types Packs/Day Years [...] as of this encounter Progress Notes * rTupti Blackwell RN - 01/09/2025 8:53 AM EDT LVM for patient to return call. * Janna Browning MD - 01/09/2025 7:35 AM EDT Ok to schedule next available with me, ok for 15 minute follow-up. If she would like to be seen sooner please schedule with available provider Thank you * Trupti Blackwell RN - 01/08/2025 3:40 PM EDT Spoke with patient. States she is still having urinary frequency but no other urinary symptoms. States she is also having swelling in her right knee. Pain currently 6/10. Has been trying ice and heatbut it has not improved knee swelling. States she has been walking more frequently. States she has had swelling in this knee before from previous injury. Patient takes no medications. Patient is requesting PT referral. Advised No OV available today or tomorrow. Advised patient to be seen at , declined. States she was supposed to follow up with in 3 months but someone told her that he could not see her because he is too busy so that appointment was never made. Advised patient I will forward to for advice. Patient verbalized understanding. * Nathaly Bland - 01/08/2025 3:34 PM EDT Pt returned call - she is asking for you to call back and let the phone ring she takes a long time to get to the phone Central Support Division Sergeant (Please do not reply to this user; this inbox is not monitored.) Thank you. * Sharon Luis RN - 01/08/2025 3:04 PM EDT LVM to have patient call office. * Giles Hill - 01/08/2025 2:08 PM EDT Pt called in, said she has leg swelling the past 2-3 days. Central Support Division Sergeant (Please do not reply to this user; this inbox is not monitored.) Thank you. * Jessenia Valle - 01/08/2025 2:03 PM EDT Patient called in returning call, please contact and advise. Central Support Division Sergeant (Please do not reply to this user; this inbox is not monitored.) Thank you. * Trupti Blackwell RN - 01/02/2025 4:43 PM EDT LVM for patient to return call. * Ana Laura Mccray - 01/02/2025 2:24 PM EDT Pt called back in returning a call to triage. Pt stated she is available for a call at 4:45pm today. Please contact and advise. Central Support Division Sergeant (Please do not reply to this user; this inbox is not monitored.) Thank you. * Nereyda Rodriguez LPN - 01/02/2025 1:51 PM EDT Left message- return call pending * Ana Laura Mccray - 01/02/2025 12:47 PM EDT Pt called in stating she is still experiencing urinary frequency. Pt stated she went to [facility] earlier this month and they dismissed her without diagnosis or treatment. Pt would like to discuss her plan of care for this issue. See TE 12/13. Please contact and advise. Central Support Division Sergeant (Please do not reply to this user; this inbox is not monitored.) Thank you. documented in this encounter Plan of Treatment Not on file documented as of this encounter Visit Diagnoses Not on filedocumented in this encounter Care Teams Automotive Brake Adjuster Relationship Specialty Start Date End Date Janna Browning MD [address] [place] [address], [address] [place] [address] [email or web address] PCP - General Family Medicine 06/12/24 documented as of this encounter Additional Source Comments The information contained in this document represents components of the legal health record. It is not the complete legal health record.[facility]
--- OUTSIDE RECORDS SUMMARY | 2025-01-10 14:24 | XMS_ITS | Encounter Summary ---
Author Organization [facility] Address [address] [place] [phone] Phone Care Team Providers Care Oxide Furnace Tender Name Role Phone Janna Browning MD Primary Care Provider [phone] Reason for Visit * Reason Onset Date Comments urology issue 12/13/2024 Encounter Details Date Type Department Care Team (Late st Contact Info) Description 12/13/2024 Telephone [employer] [facility] [address] [place] [address] Janna Browning MD [address] [facility] 7 [place] [address] [email or web address] urology issue Social History Tobacco Use Types [...] appt. Please contact and advise. Central Support Inventory Associate And Driver (Please do not reply to this user; this inbox is not monitored.) Thank you. * Rosa Pitts - 12/13/2024 4:05 PM EDT Received return call from pt. Pt states she will be available for a return call now. Central Support Inventory Associate And Driver (Please do not reply to this user; [...] on filedocumented in this encounter Care Teams Oxide Furnace Tender Relationship Specialty Start Date End Date Janna Browning MD [address] [place] [address], [address] [place] [address] [email or web address] PCP - General Family Medicine 06/12/24 documented as of this encounter Additional Source Comments The information contained in this document represents components of the legal health record. It is not the complete legal health record.[facility]
--- OUTSIDE RECORDS SUMMARY | 2025-01-10 14:24 | XMS_ITS | Encounter Summary ---
Author Organization [facility] Address [address] [facility] [address] [place] [address] Phone Care Team Providers Care Power Systems Engineer Name Role Phone Janna Browning MD Primary Care Provider [phone] Reason for Visit * Reason Onset Date Comments No Show 12/13/2024 Same day cancel Encounter Details Date Type Department Care Team ([facility] st Contact Info) Description 12/13/2024 Telephone [facility] [address] [place] [address] Janna Browning MD [address] [facility] 7 [place] [address] [email or web address] No Show (Same day cancel) Social History [...] can cancel appointments anytime through your Patient [place]. We appreciate your understanding. Required Scripting for [...] can cancel appointments anytime through your Patient [place]. documented in this encounter Plan of Treatment Not on file documented as of this encounter Visit Diagnoses Not on filedocumented in this encounter Care Teams Power Systems Engineer Relationship Specialty Start Date End Date Janna Browning MD [address] [place] [address], [address] [place] [address] [email or web address] PCP - General Family Medicine 06/12/24 documented as of this encounter Additional Source Comments The information contained in this document represents components of the legal health record. It is not the complete legal health record.[facility]
--- OUTSIDE RECORDS SUMMARY | 2025-01-10 14:25 | XMS_ITS | Clinical Summary ---
Author Organization [facility] Address [address] [place] [address] Phone Care Team Providers Care Newswriter Name Role Phone Janna Browning MD Primary Care Provider [phone] Allergies Active Allergy Reactions Criticality Noted Date Comments Bacitracin Unknown 10/15/2013 Latex 01/26/2024 Penicillins Unknown 10/15/2013 Medications No known medications Active Problems Problem Noted Date Diagnosed Date Vaginal atrophy 09/12/2024 Assessment & Plan (09/12/2024 11:03 AM EDT): Patient with symptoms of intermittent vaginal itching without discharge. Pelvic exam performed today with bdr present. 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 Referral placed. Arthritis 10/15/2013 Overview (05/31/2014): Arthritis Heart murmur 10/15/2013 Overview (05/31/2014): Heart murmur Resolved Problems Problem Noted Date Diagnosed Date Resolved Date Asthma 10/15/2013 06/12/2024 Overview (05/31/2014): Asthma Encounters Date Type Department Care Team Description 01/02/2025 Telephone [facility] [address] [place] [address] Janna Browning MD Triage (Urinary frequency ) 12/20/2024 Telephone [facility] [address] [place] [address] Janna Browning MD Referral ([facility]) 12/13/2024 Telephone [facility] [address] [place] [address] Janna Browning MD urology issue 12/13/2024 Telephone [facility] [address] [place] [address] Janna Browning MD No Show (Same day cancel) 11/28/2024 Telephone [facility] [address] [place] [address] Janna Browning MD Results from Last 3 Months Social History Tobacco [...] ecorded Are you denied basic needs [facility] as food, clothing, or medical care? No 10/03/2023 In the past 12 months have y ou been in a relationship with a person who hurts, threatens, or tries to control you? No 10/03/2023 Are you denied basic needs [facility] as food, clothing, or medical care? [...] (2 - 2024-2 6 season) 2024 05/27/2020 HEPATITIS A VACCINES Aged Out No long [...] this topic Medical Devices Not on file Insurance MEDICARE PART A & B [facility] MEDICARE PART A & B [facility] MEDICARE PART A & [facility] B [facility] MEDICARE PART A & B [place] B [facility] MEDICARE PART A & B [facility] A & B [facility] MEDICARE PART A [place] [phone] MEDICARE PART A & B [facility] Care Teams Newswriter Relationship Specialty Start Date End Date Janna Browning MD [address] [place] [address], [address] [place] [address] [email or web address] PCP - General Family Medicine 06/12/24 Additional Source Comments The information contained in this document represents components of the legal health record. It is not the complete legal health record.[facility]
[2025-01-10 14:27] VITALS: BP 140/68; PULSE 74; RESP 18; TEMP 36.3; O2SAT 97; BMI 19.0
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
== END 2025-01-10 14:58 | disposition home or self-care (01) ==
LOC: HO.HMCH 14:18
PROVIDERS: PCP Internal Medicine; Visit Provider Internal Medicine
DX: M17.11 Unilateral primary osteoarthritis, right knee (principal)

== ENCOUNTER → 2025-01-10 14:17 | Outpatient (BNVA) | payer MEDICARE, MEDICAID, SELFPAY | PROVIDERS: PCP Internal Medicine; Visit Provider Internal Medicine | DX: M17.11 Unilateral primary osteoarthritis, right knee (principal) | CPT/HCPCS: 99212 ==

== ENCOUNTER 2025-01-15 11:08 | Outpatient (AMB) | payer MEDICARE, MEDICAID, SELFPAY ==
[2025-01-15 11:19] VITALS: BP 140/82; PULSE 84; TEMP 36.1; O2SAT 100
--- NOTE | 2025-01-15 11:19 | MHC.PC.OV ---
Vital Signs 01/15/25 11:19 Height 4 ft 11.06 in Weight 99 lb BMI 20.0 BP 140/82 H Blood Pressure Location Lt brachial Position Sitting Pulse 84 Pulse Source Pulse Oximeter Temp 97.0 F Temp Source Temporal Artery Scan Pulse Oximetry (%) 100 Oxygen Delivery Method Room Air Intake Visit Reasons: Discuss Endocrinology referral Allergies bacitracin (BACITRACIN) Allergy (Unknown, Verified 01/15/25 11:24) UNKNOWN latex (LATEX) Allergy (Unknown, Verified 01/15/25 11:24) ITCHING penicillin V Allergy (Unknown, Verified 01/15/25 11:24) Unknown Penicillins (PENICILLINS) Allergy (Unknown, Verified 01/15/25 11:24) UNKNOWN Dye [facility] Red 2 (Amaranth) Allergy (Unknown, Uncoded 01/15/25 11:24) Unknown Dye [facility] Red 3 (Erythrosine) Allergy (Unknown, Uncoded 01/15/25 11:24) Unknown Dye [facility] Red 40 (Allura Red) Allergy (Unknown, Uncoded 01/15/25 11:24) Unknown Dye [facility] Red 40 ([place] Red) Allergy (Unknown, Uncoded 01/15/25 11:24) Unknown Latex Allergy (Unknown, Uncoded 01/15/25 11:24) Unknown Latex Gloves Allergy (Unknown, Uncoded 01/15/25 11:24) itching Medication List - Last Reconciled 01/15/25 by Merle Barrientos MD ammonium lactate 12% (AmLactin) 1 appl topical DAILY diclofenac sodium 1% (Voltaren Arthritis Pain) 4 grams topical QID [EMPI? Select? TENS Pain Control Electrotherapy Unit As directed] urea 20% 1 appl topical BID Tobacco use date assessed: 01/15/25 Fall risk assessment: 1 Fall in past year Last assessed Fall Risk: 01/15/25 Dental Screening Dental Screen Date: 01/15/25 Did you have a dental visit in the last 12 months?: No Did you have a dental problem in the last 6 months where you did not have access to dental care?: No Was dental information given to patient?: No HPI HPI Comments History of Present Illness Details The patient is an 79-year-old female presenting with frequent bowel movements. She reported going to the bathroom about 10 to 12 times last night, which she attributes to a possible viral infection. The patient mentioned that Dr. Watts had previously given her a zee pack for diarrhea, but she is unsure if it is appropriate to continue its use. 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 She believes this exposure affected her health, although specific symptoms related to this were not detailed. Additionally, the patient has a history of a horseshoe kidney. The patient has asthma, which she mentioned in the context of needing a note for housing [place]. She also has osteoporosis, but she declined a DEXA scan due to concerns about radiation exposure. [facility] Medical History Cellulitis Surgical History (Reviewed 01/15/25 @ :24 by Blanca Torres CMA) Hx of hernia repair Hx of breast implants, bilateral No pertinent past surgical history Family History Mother No problems noted. Father No problems noted. Social History Housing: Homeless Alcohol intake: never Patient Tobacco Use Status: Never used Tobacco e-Cigarette/Vaping Use: Never Used Second Hand Smoke Exposure: No service: No Current occupational status: retired Cognitive needs: No Hearing needs: No Vision needs: Yes (glasses) Female Reproductive History Menstrual Age of Menarche: 11 Questionnaire PHQ-9 Over the last 2 weeks, how often have you been bothered by any of the following problems? 1. Little interest or pleasure in doing things: not at all 2. Feeling down, depressed, or hopeless: not at all 3. Trouble falling or staying asleep, or sleeping too much: not at all 4. Feeling tired or having little energy: not at all 5. Poor appetite or overeating: not at all 6. Feeling bad about yourself - or that you are a failure or have let yourself or your family down: not at all 7. Trouble concentrating on things, such as reading the newspaper or watching television: not at all 8. Moving or speaking so slowly that other people could have noticed. Or the opposite - being so fidgety or restless that you have been moving around a lot more than usual: not at all 9. Thoughts that you would be better off or of hurting yourself in some way: not at all Total score: 0 Source: Developed by Drs. Mark Haney, Yasmine Thompson, Errol Horne and colleagues, with an educational laura from [employer]. Thrive Questionnaire Date Thrive assessed: 12/23/24 I am a: Patient What is your living situation today?: I have a steady place to live Within the past 12 months, did the food you bought not last and you didn't have the money to get more?: Sometimes True Within the past 12 months, did you worry whether your food would run out before you got money to buy more?: Sometimes True Do you have trouble paying for medicines?: No Do you have trouble getting transportation to medical appointments?: Yes Do you have trouble paying your heating and electricity bill?: No Do you have trouble taking care of your child, family member or friend?: No Do you have trouble with day-to-day activities such as bathing, preparing meals, shopping, managing finances, etc.?: No Are you currently unemployed and looking for a job?: No Are you interested in more education?: Yes Currently or been in a relationship where the following occur: No concerns reported THRIVE Score: 3 AUDIT C Alcohol Use Questionnaire (AUDIT-C) 1. How often do you have a drink containing alcohol?: Never 3. How often do you have six or more drinks on one occasion?: Never Total Score: 0 DANA-7 AMB Questionnaire DANA-7 Date DANA - 7 assessed: 06/14/24 Feeling nervous, anxious, or on edge: 0 = Not at all Not being able to stop or control worryin = Not at all Worrying too much about different things: 0 = Not at all Trouble relaxin = Not at all Being so restless that it is hard to sit still: 0 = Not at all Becoming easily annoyed or irritable: 0 = Not at all Feeling afraid as if something awful might happen: 0 = Not at all Total DANA-7 score (0-4 normal; 5-9 mild; 10-14 moderate; 15-21 severe): 0 Source: Developed by Yasmine Fong, Errol Horne and colleagues, with an educational laura from [employer]. Review of Systems Const Details: Positives besides what was mentioned in HPI are in BOLD Constitutional: No Weight Change, No Fever, No Chills, No Night Sweats, No Fatigue, No Malaise ENT/Mouth: No Hearing Changes, No Ear Pain, No Nasal Congestion, No Sinus Pain, No Hoarseness, No sore throat, No Rhinorrhea, No Swallowing Difficulty Eyes: No Eye Pain, No Swelling, No Redness, No Foreign Body, No Discharge, No Vision Changes Cardiovascular: No Chest Pain, No SOB, No PND, No Dyspnea on Exertion, No Orthopnea, No Claudication, No Edema, No Palpitations Respiratory: No Cough, No Sputum, No Wheezing, No Smoke Exposure, No Dyspnea Gastrointestinal: No Nausea, No Vomiting, No Diarrhea, No Constipation, No Pain, No Heartburn, No Anorexia, No Dysphagia, No Hematochezia, No Melena, No Flatulence, No Jaundice Genitourinary: No Dysmenorrhea, No DUB, No Dyspareunia, No Dysuria, No Urinary Frequency, No Hematuria, No Urinary Incontinence, No Urgency, No Flank Pain, No Urinary Flow Changes, No Hesitancy Musculoskeletal: No Arthralgias, No Myalgias, No Joint Swelling, No Joint Stiffness, No Back Pain, No Neck Pain, No Injury History Skin: No Skin Lesions, No Pruritis, No Hair Changes, No Breast/Skin Changes, No Nipple Discharge Neuro: No Weakness, No Numbness, No Paresthesias, No Loss of Consciousness, No Syncope, No Dizziness, No Headache, No Coordination Changes, No Recent Falls Psych: No Anxiety/Panic, No Depression, No Insomnia, No Personality Changes, No Delusions, No Rumination, No SI/HI/AH/VH, No Social Issues, No Memory Changes, No Violence/Abuse Hx., No Eating Concerns Heme/Lymph: No Bruising, No Bleeding, No Transfusions History, No Lymphadenopathy Endocrine: No Polyuria, No Polydipsia, No Temperature Intolerance Physical exam (Primary Care) Vital Signs: Last Vital Signs Temp 97.0 F 01/15/25 11:19 Pulse 84 01/15/25 11:19 BP 140/82 H 01/15/25 11:19 Pulse Ox 100 01/15/25 11:19 Oxygen Delivery Method Room Air 01/15/25 11:19 BMI result Body Mass Index 20.0 Tobacco/Smoking Status: Tobacco use Status Tobacco use date assessed 01/15/25 01/15/25 11:25 Patient Tobacco Use Status Never used Tobacco 01/15/25 11:25 e-Cigarette/Vaping Use Never Used 01/15/25 11:25 PHQ-9: PHQ-9 Score PHQ-9: Total score 0 01/15/25 11:25 Thrive Assessment: Date of Thrive Assessment Date Thrive assessed 12/23/24 01/15/25 11:25 Currently or been in a relationship where the following occur: No concerns reported Const Other: Pertinent findings are in BOLD GENERAL APPEARANCE NAD, activity normal for age, well developed/ well nourished, no cyanosis, pallor, or diaphoresis. EYES lids/conjunctiva normal. EARS/NOSE/THROAT Mucous membranes moist, nares normal, lips/teeth normal uvula midline without oral pharyngeal erythema, exudate or swelling TMs normal bilaterally. No lymphangitis/lymphedema. HEAD/NECK normocephalic atraumatic, no facial trauma, neck is supple. RESPIRATORY respiratory effort normal, speaks in full sentences, no tripod position, no accessory muscle use. Lungs clear to auscultation without rhonchi, wheezes, rales CARDIAC Regular rate and rhythm, no edema. ABDOMINAL Soft, ND/NT. No evidence of fluid wave. No pulsatile masses on exam, rebound tenderness, White sign or pain over Mcburney's point. MUSCLES/EXTREMITIES No abnormal range of motion, no swelling. SKIN Warm, pink and dry. No rashes, dermatoses, petechiae or lesions. NEUROLOGICAL Speech is clear and appropriate. Normal level of consciousness. Gait and coordination are normal. 5/5 strength in all extremities. PSYCH Normal mood and affect. Judgement/competence is appropriate Coding Level of Care Code Est Pt Level 3 (77156) Est Pt Prev Care >65y(72272) Diagnoses Healthcare maintenance Z00.00 Diarrhea R19.7 Assessment & Plan Assessment & Plan (1) Healthcare maintenance: Code(s): Z00.00 - Encounter for general adult medical examination without abnormal findings Category: Medical Plan: CBC, CMP, Lipid panel, A1C, TSH w T4, vit D. Ordered today. Shingles 2 doses when >50 yo. Declined. COVID: two doses. Advised patient to get her COVID shot from a retail pharmacy. Pneumococcal: 19-64. Declined. Flu vaccine: Declined. Colonoscopy: 45-75. Declined. AAA: 65 -[address]. [address] CT lun - 80. Declined. HPV: Declined. HIV: Declined. HBV: Declined. HCV: Declined. Dexa: Declined due to radiaiton exposure. Mammogram: Declined. (2) Diarrhea: Code(s): R19.7 - Diarrhea, unspecified Category: Medical Plan: Advised patient to take imodium. She declined as she does not wnat to take medications. Patient requesting Zee pack for the diarrhea. Advised patient that this might actually worsen her symptoms. Plan During the visit, we discussed the patient's frequent bowel movements and the possibility of a viral infection as the cause. I advised against the use of antibiotics as they could exacerbate the condition. We also talked about her past exposure to a hormone disruptor and her concerns about its impact on her health. Additionally, we reviewed her asthma management and the need for a housing note due to her [place] to a highway. The patient declined a DEXA scan for osteoporosis due to concerns about radiation exposure. We agreed to follow up on her symptoms and any necessary interventions. Orders: Orders Complete Blood Count Auto Diff Today Z00.00 - Encounter for general adult medical examination without abnormal findings TSH reflex Free T4 Today Z00.00 - Encounter for general adult medical examination without abnormal findings Comprehensive Met. Panel Today Z00.00 - Encounter for general adult medical examination without abnormal findings Hemoglobin A1c Today Z00.00 - Encounter for general adult medical examination without abnormal findings Vitamin D 25-OH (D2 and D3) Today Z00.00 - Encounter for general adult medical examination without abnormal findings Lipid Panel Today Z00.00 - Encounter for general adult medical examination without abnormal findings
== END 2025-01-15 12:01 | disposition home or self-care (01) ==
LOC: HO.HMCH 11:08
PROVIDERS: PCP Internal Medicine; Visit Provider Internal Medicine
DX: Z00.00 Encounter for general adult medical examination without abnormal findings (principal); R19.7 Diarrhea, unspecified

== ENCOUNTER → 2025-01-15 11:08 | Outpatient (BNVA) | payer MEDICARE, MEDICAID, SELFPAY | PROVIDERS: PCP Internal Medicine; Visit Provider Internal Medicine | DX: Z00.00 Encounter for general adult medical examination without abnormal findings (principal); M81.0 Age-related osteoporosis without current pathological fracture; R19.7 Diarrhea, unspecified | CPT/HCPCS: 96127; 99212; 99397 ==

== ENCOUNTER 2025-02-13 10:52 | Outpatient (AMB) | payer MEDICARE, MEDICAID, SELFPAY ==
--- NOTE | 2025-02-13 11:24 | A.OFFVIS_ITS ---
Vital Signs 02/13/25 11:41 Height 4 ft 11 in Weight 99 lb BMI 20.0 Intake Visit Reasons: Follow Up Bunion of unspecified foot Intake Note: Zuleima is a 79 year old female who presents today for a follow up on her bunion. She states she purchased new supportive shoe wear and found it has helped. Allergies bacitracin (BACITRACIN) Allergy (Unknown, Verified 02/13/25 11:41) UNKNOWN latex (LATEX) Allergy (Unknown, Verified 02/13/25 11:41) ITCHING penicillin V Allergy (Unknown, Verified 02/13/25 11:41) Unknown Penicillins (PENICILLINS) Allergy (Unknown, Verified 02/13/25 11:41) UNKNOWN Dye [facility] Red 2 (Amaranth) Allergy (Unknown, Uncoded 01/15/25 11:24) Unknown Dye [facility] Red 3 (Erythrosine) Allergy (Unknown, Uncoded 01/15/25 11:24) Unknown Dye [facility] Red 40 (Allura Red) Allergy (Unknown, Uncoded 01/15/25 11:24) Unknown Dye [facility] Red 40 ([place] Red) Allergy (Unknown, Uncoded 01/15/25 11:24) Unknown Latex Allergy (Unknown, Uncoded 01/15/25 11:24) Unknown Latex Gloves Allergy (Unknown, Uncoded 01/15/25 11:24) itching HPI HPI Follow Up Bunion of unspecified foot: Details: The patient is an 78-year-old female returning for left foot for painful calluses and nails. The bunion on the left foot has been present for most of her life, with the patient noting a history of running marathons, which may have contributed to the condition. She states it does not cause her significant pain however she has difficulty wearing appropriate shoe wear. Patient states she has had calluses for several years and goes to multiple wholesaler for routine treatment. The patient has been using a urea-based [id number] cream, which helps. patient ambulates with a rolling walker. [facility] Medical History Cellulitis Surgical History Hx of hernia repair Hx of breast implants, bilateral No pertinent past surgical history Family History Mother No problems noted. Father No problems noted. Social History Housing: Homeless Alcohol intake: never Patient Tobacco Use Status: Never used Tobacco e-Cigarette/Vaping Use: Never Used Second Hand Smoke Exposure: No service: No Current occupational status: retired Cognitive needs: No Hearing needs: No Vision needs: Yes (glasses) Female Reproductive History Menstrual Age of Menarche: 11 Review of Systems Const All systems reviewed & are unremarkable except as noted in HPI and below Physical Exam Vital Signs: BMI result Body Mass Index 20.0 Extrem Other: *Bilateral Lower Extremity Focused Foot Exam Vascular: DP/PT 2/4, CFT<3s to digits, TG warm to cool, no pedal edema, pedal hair absent Derm: Skin: Large hyperkeratotic lesion left foot submetatarsal 2 and 3, medial hallux, dorsal medial eminence 1st metatarsal and right foot submet 2. No clinical signs of infection. No wounds underneath the lesions. Interdigital spaces: Clear, no maceration or fungal infection. Nails: Dystrophic elongated thickened toenail with subungual debris times 10. Neuro: Protective sensation grossly intact to bilateral extremities. Msk: Deformities: Dislocated/severe track bound hallux valgus deformity left foot with overlapping 2nd through 4th rigid hammertoe deformities. Right foot mild hallux abductovalgus deformity. Mild 2nd digit hammertoe. Muscle strength: 4/5 in all muscle groups. Gait: Normal, no antalgic or steppage gait observed. Footwear Assessment: Shoes inspected; appropriate fit, no excessive wear, or foreign objects noted. Office Procedures AMB Debridement/Avulsion Podia Details: Procedure: Callus debridement Location: 2 right foot, 2 left foot Anesthesia: N/A Description: The affected area was cleansed with an antiseptic solution. Using a sterile #15 blade, the hyperkeratotic tissue was radially debrided from the foot. All callused tissue was removed down to normal skin without causing bleeding or discomfort. The area was inspected for underlying ulceration or infection. Patient tolerated the procedure well. No complications noted. Tolerance: Patient tolerated procedure well, no immediate complications. Procedure: Nail debridement Location: 10 nails, bilateral feet Anesthesia: N/A Description: The affected toenails were cleansed with an antiseptic solution. Using sterile nail nippers and a rotary keshav, dystrophic and mycotic nail material was carefully debrided and reduced in thickness. Care was taken to avoid trauma to the surrounding skin and nail bed. All debris was removed as tolerated. The area was inspected for signs of infection or ulceration. Patient tolerated the procedure well without complications. Tolerance: Patient tolerated procedure well, no immediate complications. Class B findings as per physical exam findings above. The patient has a diagnosis of diabetes mellitus and presents with elongated, thickened toenails. Due to underlying diabetic neuropathy and mild vascular disease findings, the patient is at increased risk for complications such as ulceration, infection, and difficulty with self-care. Debridement of elongated toenails is medically necessary to prevent development of pressure-related lesions, reduce risk of secondary infection, and maintain foot health in high- risk comorbidities. 27611-Obgysrnxmst of Nail 6+ 73365-Efwmgavkjzx of Callus (2-4) Procedure code (CPT) selection complete Assessment & Plan Assessment & Plan (1) Bunion of great toe: Code(s): M21.619 - Bunion of unspecified foot Category: Medical Plan: * Discussed treatment options if the patient has severe pain to her bunion. Including possible surgical excision due to the significant arthritis. Recommended x-rays, which the patient deferred. * Discussed the risks and complications with the surgery and recommended conservative care if she does not have significant pain, which she does not endorse at this time. (2) Onychogryphosis: Code(s): L60.2 - Onychogryphosis Category: Medical Plan: * Debrided elongated thickened toenails times 10. No complications. (3) Callus: Code(s): L84 - Corns and callosities Category: Medical Plan: * Debrided calluses x4. No complications. Recommended routine care frequently to avoid progression of callosities. * Continue urea cream (4) Gait abnormality: Code(s): R26.9 - Unspecified abnormalities of gait and mobility Category: Medical Plan: * Patient requires routine care due to her inability to provide self-care. Orders: Orders AMB Debridement/Avulsion Podiatry Today L60.2 - Onychogryphosis, L84 - Corns and callosities Coding Level of Care Code Procedure Only Diagnoses Bunion of great toe M21.619 Onychogryphosis L60.2 Callus L84 Gait abnormality R26.9 CPT Codes Skin Debridement - CPT: 77063-Nmldxnzfyxs of Nail 6+ ([id number]) Skin Debridement - CPT: 85938-Gzdrswieyir of Callus (2-4) ([id number])
--- OUTSIDE RECORDS SUMMARY | 2025-02-13 13:11 | XMS_ITS | Encounter Summary ---
Author Organization [facility] Address [address] [place] [id number] Phone Care Team Providers Care Phototypesetter Operator Name Role Phone Janna Browning MD Primary Care Provider [phone] Reason for Visit * Reason Onset Date Comments Triage 01/02/2025 Urinary frequenc y Encounter Details Date Type Department Care Team ([facility] st Contact Info) Description 01/02/2025 Telephone 51Talk [facility] [address] [place] [address] Janna Browning MD [address] [facility] [place] [address] [email or web address] [facility] Triage (Urinary frequency ) Social History Tobacco [...] as of this encounter Progress Notes * Trupti Blackwell RN - 01/17/2025 9:27 AM EDT Spoke with patient. OV scheduled for 02/07 at 11:45AM for next available with . Patient verbalized understanding. * Ana Laura Mccray - 01/17/2025 8:49 AM EDT Pt called in regarding a sooner appt with PCP. No sooner appts available than what is scheduled for03/05. Pt declined a sooner appt with another provider. Please contact and advise. Central Support Beam Doffer (Please do not reply to this user; this inbox is not monitored.) Thank you. * Aileen De Leon RN - 01/16/2025 5:01 PM EDT Left message for patient to call office for appointment. * Trupti Blackwell RN - 01/09/2025 8:53 AM EDT [...] to get to the phone Central Support Beam Doffer (Please do not reply to this user; this inbox is not monitored.) Thank you. * Sharon Luis RN - 01/08/2025 3:04 PM EDT LVM to have patient call office. * Giles Hill - 01/08/2025 2:08 PM EDT Pt called in, said she has leg swelling the past 2-3 days. Central Support Beam Doffer (Please do not reply to this user; this inbox is not monitored.) Thank you. * Jessenia Valle - 01/08/2025 2:03 PM EDT Patient called in returning call, please contact and advise. Central Support Beam Doffer (Please do not reply to this user; [...] today. Please contact and advise. Central Support Beam Doffer (Please do not reply to this user; this inbox is not monitored.) Thank you. * Nereyda Rodriguez LPN - 01/02/2025 1:51 PM EDT Left message- return call pending * Ana Laura Mccray - 01/02/2025 12:47 PM EDT Pt called in stating she is still experiencing urinary frequency. Pt stated she went to [facility] earlier this month and they dismissed her without diagnosis or treatment. Pt would like to discuss her plan of care for this issue. See TE 12/13. Please contact and advise. Central Support Beam Doffer (Please do not reply to this user; this inbox is not monitored.) Thank you. documented in this encounter Plan of Treatment Upcoming Encounters Date Type Department Care Team (Late st Contact Info) Description 03/05/2025 2:00 PM EST Office Visit [facility] [address] [place] [address] Janna Browning MD [address] [facility] [address] [place] [address] [email or web address] documented as of this encounter Visit Diagnoses Not on filedocumented in this encounter Care Teams Phototypesetter Operator Relationship Specialty Start Date End Date Janna Browning MD [address] [facility] [address] [address] [place] [address] [email or web address] PCP - General Family Medicine 06/12/24 documented as of this encounter Additional Source Comments The information contained in this document represents components of the legal health record. It is not the complete legal health record.[facility]
--- OUTSIDE RECORDS SUMMARY | 2025-02-13 13:11 | XMS_ITS | Encounter Summary ---
Author Organization [facility] Address [address] [facility] [address] [place] [address] Phone Care Team Providers Care Line Cook Name Role Phone Janna Browning MD Primary Care Provider [phone] Reason for Visit * Reason Onset Date Comments No Show 12/13/2024 Same day cancel Encounter Details Date Type Department Care Team ([facility] st Contact Info) Description 12/13/2024 Telephone ED[facility] [employer] [facility] [address] [place] [address] Janna Browning MD 234 [facility] 7 [place] [address] [email or web address], [facility] No Show (Same day cancel) Social History [...] can cancel appointments anytime through your Patient [place]. We appreciate your understanding. Required Scripting for [...] can cancel appointments anytime through your Patient [place]. documented in this encounter Plan of Treatment Upcoming Encounters Date Type Department Care Team (Late st Contact Info) Description 03/05/2025 2:00 PM EST Office Visit [facility] [address] [place] [address] Janna Browning MD 234 [facility] 7 [place] [address] [email or web address] documented as of this encounter Visit Diagnoses Not on filedocumented in this encounter Care Teams Line Cook Relationship Specialty Start Date End Date Janna Browning MD [address] [facility] 7 [place] [address] [email or web address] PCP - General Family Medicine 06/12/24 documented as of this encounter Additional Source Comments The information contained in this document represents components of the legal health record. It is not the complete legal health record.[facility]
--- OUTSIDE RECORDS SUMMARY | 2025-02-13 13:11 | XMS_ITS | Patient Health Record ---
Author Organization [facility] Address [address] [place] [address] Care Team Providers Care Stitching Machine Setter Name Role Phone Sho BELLAMY, Jp Primary Care Provider Damien De La Torre Unavailable [phone] Allergies Allergen (clinical drug ingredient) Drug/Non Drug Allergy documented on EMR Reaction Allergy Type Onset Date Status Penicillin itchy/swelling Drug Allergy A ctive Reason For Referral No Information Medications Medication SIG (Take, Route, Frequency, Duration) Notes Start Date End Date Status Tretinoin 0.05 % APPLY TO AFFECTED AR EA(S) DAILY DIRECTED External; Duration: 10 Active Ciprofloxacin HCl 500 MG TAKE 1 TABLET B Y MOUTH TWICE A DAY Oral; Duration: 7 Active Social History Tobacco use other than smoking: Question Answer Notes Are you an other tobacco user? 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.19) Active confirmed Problem Onychomycosis (950748880) Onychomycosis (110.1) Active confirmed Problem Disorder of joint of ankle and/or foot (611750102) Arthritis - Degenerative (719.97) Active confirmed Problem Hallux valgus (895756690) Hallux Valgus (735.0) Active confirmed Problem Hammer toe (802435944) Hammer toe (735.4) Active confirmed Problem Pain in limb (24652556) Pain in Limb (729.5) Active confirmed Encounters Encounter Location Date Provider Diagnosis [facility] [address] [place] [address] 04/22/2024 Damien Guthrie Plan Of Treatment Pending Test Test Name Order Date [id number]-FwfpLanette Stone, 1-14 08/27/2013 Insurance Providers Payer Name Payer Address Payer Phone Subscriber Number Group Number Insured Name Patient Relationship to Insured Coverage Start Date Coverage End Date Medicare National [employer] [address] [place] [address] [id number] Zuleima Carbajal Self - patient is the insured 9 Medical (General) History Medical History History ICD Code Chicken pox Arthritis asthma Surgical History Surgery Date(Month/Year) nasal surgery
--- OUTSIDE RECORDS SUMMARY | 2025-02-13 13:11 | XMS_ITS | Encounter Summary ---
Author Organization [facility] Address [address] [place] [address] Phone Care Team Providers Care Senior Data Analyst Name Role Phone Janna Browning MD Primary Care Provider [phone] Reason for Referral * Consultation (Within 2 weeks) - New Request Specialty Diagnoses / Procedures Referred By Elenita t Referred To Contact [facility] Aileen Bautista LICSW [address] [place] [address] Phone: tel: [email or web address] [facility] [address] [place] [address] Referral ID Status Reason Start Date Expiration Date V isits Requested Visits Authorized [id number] New Request 02/11/2025 02/11/2026 1 1 Reason for Visit * Reason Onset Date Comments Care Coordination 02/11/2025 Encounter Details Date Type Department Care Team (Late st Contact Info) Description 02/11/2025 Telephone [facility] [place] Primary Care [address] [address] [facility] Aileen Bautista LICSW [address] [place] [address] Care Coordination Social History Tobacco Use Types Packs/Day Years [...] of this encounter Progress Notes * Aileen Mancini LICSW - 02/11/2025 11:12 AM EST Social Work Telephone Note Zuleima Carbajal is a 79 y.o. female referred to Social Work for housing concerns. [facility] reviewed medical record and called Patient. Patient shares that she lives in an apartment and has a H[employer] voucher. Her apartment is on a very busy road and doesn't have windows that open. Patient is working with her HUD/VASH workerAnnemarie his artificial flowers supervisor, Shannan. SW encouraged Patient to continue to work with her housing team, as they are the best resource for housing. Patient in agreement with this plan and was thankful that her PCP was concerned about her housing and placed referral to [facility]. Patient is also interested in finding a dentist that accepts [facility] in her area. OMAYRA will placereferral to Forest Engineer to assist Patient with finding a dental provider in her area. Recommendations and Follow-Up Plan SW placed order for Forest Engineer support in finding a dentist. SW will remain available. documented in this encounter Plan of Treatment Upcoming Encounters Date Type Department Care Team (Late st Contact Info) Description 03/05/2025 2:00 PM EST Office Visit [facility] [address] [place] [address] Janna Browning MD 234 [facility] 7 [place] [address] [email or web address] Scheduled Referrals Name Type Priority Associated Diagnoses Order Schedule Ambulatory referral to [facility] Forest Engineer Outpatient Referral Routine Ordered: 02/11/2025 documented as of this encounter Visit Diagnoses Not on filedocumented in this encounter Care Teams Senior Data Analyst Relationship Specialty Start Date End Date Janna Browning MD 234 [facility] 7 [place] [address] [email or web address] PCP - General Family Medicine 06/12/24 documented as of this encounter Additional Source Comments The information contained in this document represents components of the legal health record. It is not the complete legal health record.[facility]
--- OUTSIDE RECORDS SUMMARY | 2025-02-13 13:11 | XMS_ITS | Encounter Summary ---
Author Organization [facility] Address [address] [place] [address] [place] [address] Phone Care Team Providers Care Cotton Picker Name Role Phone Jp Berkowitz MD Primary Care Provider [phone] Janna Browning MD Primary Care Provider [phone] Encounter Details Date Type Department Care Team (Late st Contact Info) Description 01/24/2024 Telephone [facility] [address] [place], [place] [phone] Jp Berkowitz MD [address] [place] [address] Dr Guzman GRACIA Goyal [address] Social History Tobacco Use Types Packs/Day Years [...] as of this encounter Plan of Treatment Upcoming Encounters Date Type Department Care Team (Late st Contact Info) Description 03/05/2025 2:00 PM EST Office Visit [facility] [address] [place] [address] Janna Browning MD 234 [facility] 7 [place] [address] [email or web address] documented as of this encounter Visit Diagnoses Not on filedocumented in this encounter Care Teams Cotton Picker Relationship Specialty Start Date End Date Jp Berkowitz MD [address] [place] [address] [place] [address] PCP - General 10/08/13 06/11/24 Janna Browning MD 234 [facility] 7 [place] [address] [email or web address] PCP - General Family Medicine 06/12/24 documented as of this encounter Additional Source Comments The information contained in this document represents components of the legal health record. It is not the complete legal health record.[facility]
--- OUTSIDE RECORDS SUMMARY | 2025-02-13 13:11 | XMS_ITS | Clinical Summary ---
Author Organization [facility] Address [address] [facility] [address] [place] [address] Phone Care Team Providers Care Academic Affairs Director Name Role Phone Janna Browning MD Primary Care Provider [phone] Allergies Active Allergy Reactions Criticality Noted Date Comments Bacitracin Unknown 10/15/2013 Latex 01/26/2024 Penicillins Unknown 10/15/2013 Medications No known medications Active Problems Problem Noted Date Diagnosed Date Vaginal atrophy 09/12/2024 Assessment & Plan (09/12/2024 11:03 AM EDT): Patient with symptoms of intermittent vaginal itching without discharge. Pelvic exam performed today with delicatessen slicer present. On exam, there is atrophy of [...] 12:16 PM EST): Here to establish at [facility], prior records received and reviewed Specific [...] EDT): Chronic on her left foot, her teacher [facility] moved and needs a new one. Referral placed. Arthritis 10/15/2013 Overview (05/31/2014): Arthritis Heart murmur 10/15/2013 Overview (05/31/2014): Heart murmur Resolved Problems Problem Noted Date Diagnosed Date Resolved Date Asthma 10/15/2013 06/12/2024 Overview (05/31/2014): Asthma Encounters Date Type Department Care Team Description 02/11/2025 Telephone [facility] - ([facility] Primary Care - [address] [address] [facility] Aileen Bautista LICSW Care Coordination 02/07/2025 11:45 AM EDT Office Visit [facility] [address] [place] [address] Janna Browning MD Overactive bladder (Primary Dx); Distressed about housing issues 01/02/[address] [address] Janna Browning MD Triage (Urinary frequency ) 12/20/[address] [address] Janna Browning MD Referral ([facility] Podiat[facility]) 12/13/[address] [address] Janna Browning MD urology issue 12/13/[address] [address] Janna Browning MD No Show (Same day cancel) 11/28/[address] [address] Janna Browning MD Results from Last 3 [...] Sign Reading Time Taken Comments Blood Pressure 140/82 02/07/2025 11:10 AM EDT Pulse 88 02/07/2025 11:10 AM EDT Temperature 36.5 C (97.7 F) 02/07/2025 11:10 AM EDT Respiratory Rate 14 10/03/2023 1:50 AM EDT Oxygen Saturation 97% 02/07/2025 11:10 AM EDT Inhaled Oxygen Concentration - - Weight 44.5 kg (98 lb) 02/07/2025 11:10 AM EDT Height - - Body Mass Index - - Plan of Treatment Upcoming Encounters Date Type Department Care Team (Late st Contact Info) Description 03/05/2025 2:00 PM EST Office Visit [facility] [address] [place] [address] Janna Browning MD [address] [place] [address], [address] [place] [address] [email or web address] Health Maintenance Due Date Last Done Comments [...] file Insurance MEDICARE PART A & [facility] PART A & B [place] PART A & B [facility] PART A & [facility] & B [facility]ICARE PART A & [facility] Care Teams Academic Affairs Director Relationship Specialty Start Date End Date Janna Browning MD [address] [place] [address] [address] [place] [address] [email or web address] PCP - General Family Medicine 06/12/24 Additional Source Comments The information contained in this document represents components of the legal health record. It is not the complete legal health record.[facility]
--- OUTSIDE RECORDS SUMMARY | 2025-02-13 13:11 | XMS_ITS | Encounter Summary ---
Author Organization [facility] Address [address] [facility] [address] [place] [address] Phone Care Team Providers Care Plain Clothes Police Officer Name Role Phone Janna Browning MD Primary Care Provider [phone] Reason for Visit * Reason Onset Date Comments urology issue 12/13/2024 Encounter Details Date Type Department Care Team (Late st Contact Info) Description 12/13/2024 Telephone [facility] [address] [place] [address] Janna Browning MD 234 [facility] 7 [place] [address] [email or web address] urology issue Social History Tobacco Use [...] appt. Please contact and advise. Central Support Network Programmer (Please do not reply to this user; this inbox is not monitored.) Thank you. * Rosa [place] - 12/13/2024 4:05 PM EDT Received return call from pt. Pt states she will be available for a return call now. Central Support Network Programmer (Please do not reply to this user; [...] Description 03/05/2025 2:00 PM EST Office Visit [facility] [address] [place] [address] Janna Browning MD 234 [facility] 7 [place] [address] [email or web address] documented as of this encounter Visit Diagnoses Not on filedocumented in this encounter Care Teams Plain Clothes Police Officer Relationship Specialty Start Date End Date Janna Browning MD 234 [facility] 7 [place] [address] [email or web address] PCP - General Family Medicine 06/12/24 documented as of this encounter Additional Source Comments The information contained in this document represents components of the legal health record. It is not the complete legal health record.[facility]
== END 2025-02-13 11:53 | disposition home or self-care (01) ==
PROVIDERS: PCP Internal Medicine; Visit Provider Student in an Organized Health Care Education/Training Program
DX: M21.619 Bunion of unspecified foot (principal); L60.2 Onychogryphosis; L84 Corns and callosities; R26.9 Unspecified abnormalities of gait and mobility
CPT/HCPCS: 11056; 11721

== ENCOUNTER → 2025-02-13 10:52 | Outpatient (BNVA) | payer MEDICARE, MEDICAID, SELFPAY | PROVIDERS: PCP Internal Medicine; Visit Provider Student in an Organized Health Care Education/Training Program | DX: M21.612 Bunion of left foot (principal); L60.2 Onychogryphosis; L84 Corns and callosities; R26.9 Unspecified abnormalities of gait and mobility; M79.675 Pain in left toe(s); Z59.00 Homelessness unspecified; Z87.2 Personal history of diseases of the skin and subcutaneous tissue | CPT/HCPCS: 11056; 11721 ==

== ENCOUNTER 2025-03-28 10:03 | Outpatient (AMB) | payer MEDICARE, MEDICAID, SELFPAY ==
--- NOTE | 2025-03-28 10:14 | A.OFFVIS_ITS ---
Vital Signs 03/28/25 10:14 Height 4 ft 11 in Weight 99 lb BMI 20.0 Intake Visit Reasons: Left foot pain Intake Note: Zuleima is an 79 year oldf emale who presents today for a follow up on her bilateral foot pain. Patient reports she is still experiencing pain at this time has not seen an improvement since her last visit. Allergies bacitracin (BACITRACIN) Allergy (Unknown, Verified 03/28/25 10:16) UNKNOWN latex (LATEX) Allergy (Unknown, Verified 03/28/25 10:16) ITCHING penicillin V Allergy (Unknown, Verified 03/28/25 10:16) Unknown Penicillins (PENICILLINS) Allergy (Unknown, Verified 03/28/25 10:16) UNKNOWN Dye ASSISTED Red 2 (Amaranth) Allergy (Unknown, Uncoded 01/15/25 11:24) Unknown Dye ASSISTED Red 3 (Erythrosine) Allergy (Unknown, Uncoded 01/15/25 11:24) Unknown Dye ASSISTED Red 40 (Allura Red) Allergy (Unknown, Uncoded 01/15/25 11:24) Unknown Dye ASSISTED Red 40 (Kaumakani Red) Allergy (Unknown, Uncoded 01/15/25 11:24) Unknown Latex Allergy (Unknown, Uncoded 01/15/25 11:24) Unknown Latex Gloves Allergy (Unknown, Uncoded 01/15/25 11:24) itching HPI HPI Left foot pain: Details: The patient is an 78-year-old female returning for left foot for painful calluses and nails. She has been applying the urea cream however she has found no relief from it. She has been trying to debride the calluses at home using a pumice stone and nail [place] however with no relief. The bunion on the left foot has been present for most of her life, with the patient noting a history of running marathons, which may have contributed to the condition. She states it does not cause her significant pain however she has difficulty wearing appropriate shoe wear. Patient states she has had calluses for several years and goes to multiple restaurant kitchen and service manager for routine treatment. The patient has been using a urea-based [id number]-gpm-xnbspfx cream, which helps. patient ambulates with a rolling walker. [facility] Medical History Cellulitis Surgical History Hx of hernia repair Hx of breast implants, bilateral No pertinent past surgical history Family History Mother No problems noted. Father No problems noted. Social History Housing: Homeless Alcohol intake: never Patient Tobacco Use Status: Never used Tobacco e-Cigarette/Vaping Use: Never Used Second Hand Smoke Exposure: No service: No Current occupational status: retired Cognitive needs: No Hearing needs: No Vision needs: Yes (glasses) Female Reproductive History Menstrual Age of Menarche: 11 Review of Systems Const All systems reviewed & are unremarkable except as noted in HPI and below Physical Exam Vital Signs: BMI result Body Mass Index 20.0 Extrem Other: *Bilateral Lower Extremity Focused Foot Exam Vascular: DP/PT 2/4, CFT<3s to digits, TG warm to cool, no pedal edema, pedal hair absent Derm: Skin: Large hyperkeratotic lesion left foot submetatarsal 2 and 3, medial hallux, dorsal medial eminence 1st metatarsal and right foot submet 2. No clinical signs of infection. No wounds underneath the lesions. Interdigital spaces: Clear, no maceration or fungal infection. Nails: Dystrophic elongated thickened toenail with subungual debris times 10. Neuro: Protective sensation grossly intact to bilateral extremities. Msk: Deformities: Dislocated/severe track bound hallux valgus deformity left foot with overlapping 2nd through 4th rigid hammertoe deformities. Right foot mild hallux abductovalgus deformity. Mild 2nd digit hammertoe. Muscle strength: 4/5 in all muscle groups. Gait: Normal, no antalgic or steppage gait observed. Footwear Assessment: Shoes inspected; appropriate fit, no excessive wear, or foreign objects noted. Office Procedures AMB Debridement /Avulsion Details: Procedure: Callus debridement Location: 1 right foot, 3 left foot Anesthesia: N/A Description: The affected area was cleansed with an antiseptic solution. Using a sterile #15 blade, the hyperkeratotic tissue was radially debrided from the foot. All callused tissue was removed down to normal skin without causing bleeding or discomfort. The area was inspected for underlying ulceration or infection. Patient tolerated the procedure well. No complications noted. Tolerance: Patient tolerated procedure well, no immediate complications. Procedure: Nail debridement Location: 10 nails, bilateral feet Anesthesia: N/A Description: The affected toenails were cleansed with an antiseptic solution. Using sterile nail nippers and a rotary keshav, dystrophic and mycotic nail material was carefully debrided and reduced in thickness. Care was taken to avoid trauma to the surrounding skin and nail bed. All debris was removed as tolerated. The area was inspected for signs of infection or ulceration. Patient tolerated the procedure well without complications. Tolerance: Patient tolerated procedure well, no immediate complications. The patient has a diagnosis of gait abnormalities secondary to severely arthritic knees and feet, and ambulates with the use of the walker. She is unable to perform self-care as a geriatric patient with limited mobility. She presents with elongated, thickened toenails. Due to being unable to perform self-care as a geriatric patient with limited mobility and multiple foot deformities, the patient is at increased risk for complications such as ulceration, infection, and difficulty with self-care. Debridement of elongated toenails is medically necessary to prevent development of pressure-related lesions, reduce risk of secondary infection, and maintain foot health in high- risk comorbidities. 24384-Ukeflgdyqht of Nail 6+ 93068-Xlrijyxsoxl of Callus (2-4) Procedure code (CPT) selection complete Assessment & Plan Assessment & Plan (1) Bunion of great toe: Code(s): M21.619 - Bunion of unspecified foot Category: Medical Plan: * Discussed the risks and complications with the surgery and recommended conservative care if she does not have significant pain, which she does not endorse at this time. (2) Onychogryphosis: Code(s): L60.2 - Onychogryphosis Category: Medical Plan: * Debrided elongated thickened toenails times 10. No complications. (3) Callus: Code(s): L84 - Corns and callosities Category: Medical Plan: * Debrided calluses x4. No complications. Recommended routine care frequently to avoid progression of callosities. * Continue urea cream (4) Gait abnormality: Code(s): R26.9 - Unspecified abnormalities of gait and mobility Category: Medical Plan: * Patient requires routine care due to her inability to provide self-care. (5) Osteoarthritis of feet, bilateral: Code(s): M19.071 - Primary osteoarthritis, right ankle and foot; M19.072 - Primary osteoarthritis, left ankle and foot Category: Medical Qualifiers: Osteoarthritis type: primary Qualified Code(s): M19.071 - Primary osteoarthritis, right ankle and foot; M19.072 - Primary osteoarthritis, left ankle and foot Plan: * Patient requires routine care due to her inability to provide self-care. Coding Level of Care Code Procedure Only Diagnoses Bunion of great toe M21.619 Onychogryphosis L60.2 Callus L84 Gait abnormality R26.9 Primary osteoarthritis of both feet M19.071; M19.072 Osteoarthritis type: primary
--- OUTSIDE RECORDS SUMMARY | 2025-03-28 11:19 | XMS_ITS | Encounter Summary ---
Author Organization [facility] Address [address] [place] [address] Phone Care Team Providers Care Classifier Operator Name Role Phone Jp Berkowitz MD Primary Care Provider Janna Browning MD Primary Care Provider [phone] Encounter Details Date Type Department Care Team (Late st Contact Info) Description 01/24/2024 Telephone [facility] [address] [place], [place] [phone] Jp Berkowitz MD [address] [place] [address] [place] [address] Social History Tobacco Use Types Packs/Day Years Used Date Smoking Tobacco: Never Education Answer Date Recorded Are you interested in more education? Not on nane e 08/14/2022 Are you concerned about learning? [...] Upcoming Encounters Date Type Department Care Team ([facility] st Contact Info) Description 05/15/2025 10:30 AM EST Office Visit [address] [address] Janna Browning MD [address] [place] [address] [email or web address] 06/13/2025 2:30 PM EST Office Visit [address] [address] Janna Browning MD [address] [place] [address] [email or web address] documented as of this encounter Visit Diagnoses Not on filedocumented in this encounter Care Teams Classifier Operator Relationship Specialty Start Date End Date Jp Berkowitz MD [address] [place] [address] [place] [address] PCP - General 10/08/13 06/11/24 Janna Browning MD [address] [place] [address] [email or web address] PCP - General Family Medicine 06/12/24 documented as of this encounter Additional Source Comments The information contained in this document represents components of the legal health record. It is not the complete legal health record.[facility]
--- OUTSIDE RECORDS SUMMARY | 2025-03-28 11:19 | XMS_ITS | Encounter Summary ---
Author Organization [facility] Address [address] [place] [address] Phone Care Team Providers Care Podiatric Technician Name Role Phone Janna Browning MD Primary Care Provider [phone] Reason for Visit * Reason Onset Date Comments Triage 01/02/2025 Urinary frequenc y Encounter Details Date Type Department Care Team ([facility] st Contact Info) Description 01/02/2025 Telephone [facility] [address] [place] [address] Janna Browning MD [address] [facility] 7 [place] [address] [email or web address] Triage (Urinary frequency ) Social History Tobacco [...] provider. Please contact and advise. Central Support [employer] Manager (Please do not reply to this user; [...] to get to the phone Central Support [employer] Manager (Please do not reply to this user; this inbox is not monitored.) Thank you. * Sharon Luis RN - 01/08/2025 3:04 PM EDT LVM to have patient call office. * Giles Hill - 01/08/2025 2:08 PM EDT Pt called in, said she has leg swelling the past 2-3 days. Central Support [employer] (Please do not reply to this user; this inbox is not monitored.) Thank you. * Jessenia Valle - 01/08/2025 2:03 PM EDT Patient called in returning call, please contact and advise. Central Support [employer] (Please do not reply to this user; [...] today. Please contact and advise. Central Support [employer] Manager (Please do not reply to this user; this inbox is not monitored.) Thank you. * Nereyda Rodriguez LPN - 01/02/2025 1:51 PM EDT Left message- return call pending * Ana Laura Mccray - 01/02/2025 12:47 PM EDT Pt called in stating she is still experiencing urinary frequency. Pt stated she went to [facility] earlier this month and they dismissed her without diagnosis or treatment. Pt would like to discuss her plan of care for this issue. See TE 12/13. Please contact and advise. Central Support [employer] (Please do not reply to this user; this inbox is not monitored.) Thank you. documented in this encounter Plan of Treatment Upcoming Encounters Date Type Department Care Team (Late st Contact Info) Description 05/15/2025 10:30 AM EST Office Visit [facility] [address] [facility] [place] [address] Janna Browning MD [address] [facility] 7 [place] [address] [email or web address] 06/13/2025 2:30 PM EST Office Visit [place] [address] [place] [address] Janna Browning MD [address] [place] [address] [place] [address] [email or web address] documented as of this encounter Visit Diagnoses Not on filedocumented in this encounter Care Teams Podiatric Technician Relationship Specialty Start Date End Date Janna Browning MD [address] [place] [address] [place] [address] [email or web address] PCP - General Family Medicine 06/12/24 documented as of this encounter Additional Source Comments The information contained in this document represents components of the legal health record. It is not the complete legal health record.[facility]
--- OUTSIDE RECORDS SUMMARY | 2025-03-28 11:19 | XMS_ITS | Patient Health Record ---
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.19) Active confirmed Problem Onychomycosis (437509807) Onychomycosis (110.1) Active confirmed Problem Disorder of joint of ankle and/or foot (991228800) Arthritis - Degenerative (719.97) Active confirmed Problem Hallux valgus (734321736) Hallux Valgus (735.0) Active confirmed Problem Hammer toe (412342432) Hammer toe (735.4) Active confirmed Problem Pain in limb (71865932) Pain in Limb (729.5) Active confirmed Encounters Encounter Location Date Provider Diagnosis [facility] [address] [place] [address] 04/22/2024 Damien Guthrie Plan Of Treatment Pending Test Test Name Order Date [id number] Stone, 1-14 08/27/2013 Insurance Providers Payer Name Payer Address Payer Phone Subscriber Number Group Number Insured Name Patient Relationship to Insured Coverage Start Date Coverage End Date Medicare National [employer] [address] [place] [address] [id number] Zuleima Carbajal Self - patient is the insured 9 Medical (General) History Medical History History ICD Code Chicken pox Arthritis asthma Surgical History Surgery Date(Month/Year) nasal surgery
--- OUTSIDE RECORDS SUMMARY | 2025-03-28 11:19 | XMS_ITS | Clinical Summary ---
Author Organization [facility] Address [address] [place] [address] Phone Care Team Providers Care Oxidation Operator Name Role Phone Janna Browning MD Primary Care Provider [phone]- [phone] Allergies Active Allergy Reactions Criticality Noted Date Comments Bacitracin Unknown 10/15/2013 Latex 01/26/2024 Penicillins Unknown 10/15/2013 Medications No known medications Active Problems Problem Noted Date Diagnosed Date Vaginal atrophy 09/12/2024 Assessment & Plan (09/12/2024 11:03 AM EDT): Patient with symptoms of intermittent vaginal itching without discharge. Pelvic exam performed today with technology teacher present. On exam, there is atrophy of [...] 12:16 PM EST): Here to establish at [facility], prior records received and reviewed Specific concerns [...] EDT): Chronic on her left foot, her scudding inspector moved and needs a new one. Referral placed. Arthritis 10/15/2013 Overview (05/31/2014): Arthritis Heart murmur 10/15/2013 Overview (05/31/2014): Heart murmur Resolved Problems Problem Noted Date Diagnosed Date Resolved Date Asthma 10/15/2013 06/12/2024 Overview (05/31/2014): Asthma Encounters Date Type Department Care Team Description 03/10/2025 Telephone [facility] Primary Care [facility] [address] [place] [address] Janna Browning MD Referral 03/10/2025 Telephone [facility] [address] [place] [address] Janna Browning MD 03/05/2025 2:00 PM EST Office Visit [facility] [address] [place] [address] Janna Browning MD Moderate persistent asthma without complication (Primary Dx) 02/18/2025 Patient Outreach [facility] [address] [place] [address] Sun Webster Care Coordination 02/11/2025 Telephone [facility] [address] [place] [address] [facility] Aileen Bautista LICSW Care Coordination 02/07/2025 11:45 AM EDT Office Visit [facility] [address] [place] [address] Janna Browning MD Overactive bladder (Primary Dx); Distressed about housing issues 01/02/2025 Telephone [facility] [address] [place] [address] Janna Browning MD Triage (Urinary frequency ) from Last 3 Months Social History Tobacco [...] Sign Reading Time Taken Comments Blood Pressure 122/82 03/05/2025 2:17 PM EST Pulse 81 03/05/2025 1:54 PM EST Temperature 36.5 C (97.7 F) 02/07/2025 11:10 AM EDT Respiratory Rate 14 10/03/2023 1:50 AM EDT Oxygen Saturation 98% 03/05/2025 1:54 PM EST Inhaled Oxygen Concentration - - Weight 44.7 kg (98 lb 9.6 oz) 03/05/2025 1:54 PM EST Height 151 cm (4' 11.45 ) 03/05/2025 1:54 PM EST Body Mass Index 19.62 03/05/2025 1:54 PM EST Plan of Treatment Upcoming Encounters Date Type Department Care Team (Late st Contact Info) Description 05/15/2025 10:30 AM EST Office Visit [address] [address] Janna Browning MD [address] [place] [address] [email or web address] 06/13/2025 2:30 PM EST Office Visit [address] [address] Janna Browning MD [address] [place] [address] [email or web address] Health Maintenance Due Date Last Done Comments [...] file Insurance MEDICARE PART A & B [facility] MEDICARE PART A & [place] [id number] [facility]IC[facility] PART A & [facility] [place] MEDICARE PART A & B [id number] [place], [place] [address]HEALTH MEDICARE PART A [place] [id number] MEDICARE PART A [place] [id number] MEDICARE PART A & B [facility] B [facility] Care Teams Oxidation Operator Relationship Specialty Start Date End Date Janna Browning MD [address] [place] [address], [address] [place] [address] [email or web address] PCP - General Family Medicine 06/12/24 Additional Source Comments The information contained in this document represents components of the legal health record. It is not the complete legal health record.[facility]
--- OUTSIDE RECORDS SUMMARY | 2025-03-28 11:19 | XMS_ITS | Encounter Summary ---
Author Organization [facility] Address [address] [place] [address] Phone Care Team Providers Care Seaman Officer Name Role Phone Janna Browning MD Primary Care Provider [phone]- [phone] Encounter Details Date Type Department Care Team ([facility] st Contact Info) Description 03/10/2025 Telephone [facility] Primary [facility] Clinic [address] [place] [address] Janna Browning MD [address] [facility] 7 [place] [address] [email or web address] Social History Tobacco Use Types Packs/Day Years [...] Description 05/15/2025 10:30 AM EST Office Visit [address] [address] Janna Browning MD [address] [place] [address] [email or web address] 06/13/2025 2:30 PM EST Office Visit [address] [address] Janna Browning MD [address] [place] [address] [email or web address] documented as of this encounter Visit Diagnoses Not on filedocumented in this encounter Care Teams Seaman Officer Relationship Specialty Start Date End Date Janna Browning MD [address] [place] [address] [email or web address] PCP - General Family Medicine 06/12/24 documented as of this encounter Additional Source Comments The information contained in this document represents components of the legal health record. It is not the complete legal health record.[facility]
== END 2025-03-28 10:45 | disposition home or self-care (01) ==
LOC: HO.HPODS 10:03
PROVIDERS: PCP Internal Medicine; Visit Provider Student in an Organized Health Care Education/Training Program
DX: M21.619 Bunion of unspecified foot (principal); L60.2 Onychogryphosis; L84 Corns and callosities; R26.9 Unspecified abnormalities of gait and mobility; M19.071 Primary osteoarthritis, right ankle and foot; M19.072 Primary osteoarthritis, left ankle and foot
CPT/HCPCS: 11056; 11721

== ENCOUNTER → 2025-03-28 10:03 | Outpatient (BNVA) | payer MEDICARE, MEDICAID, SELFPAY | PROVIDERS: PCP Internal Medicine; Visit Provider Student in an Organized Health Care Education/Training Program | DX: M21.612 Bunion of left foot (principal); L60.2 Onychogryphosis; L84 Corns and callosities; R26.9 Unspecified abnormalities of gait and mobility; M19.071 Primary osteoarthritis, right ankle and foot; M19.072 Primary osteoarthritis, left ankle and foot; M79.672 Pain in left foot; M17.0 Bilateral primary osteoarthritis of knee; Z78.9 Other specified health status | CPT/HCPCS: 11056; 11721 ==